=== PATIENT | male | born 1965 | race Hispanic/Latino ===

== ENCOUNTER 2017-07-15 16:35 | Inpatient (IN) | payer BC, OTHER ==
[2017-07-15 16:35] VITALS: PULSE 85; BMI 46.2
[2017-07-15] MEDS ORDERED: TDAP Vaccine 0.5 mL Syr IM ONE (17:12)
--- NOTE | 2017-07-15 17:27 | ED PDOC ---
Arrival/HPI - General Chief Complaint: Abnormal Skin Integrity Time Seen by Provider: 07/15/17 17:11 Historian: Patient - History of Present Illness Narrative History of Present Illness (Text): 07/15/17 17:28 52-year-old male with a history of diabetes and high blood pressure presents today sent in by Dr. Mcleod for ulcer to the left foot. Patient states 3 weeks ago he noticed a callus on the bottom of the foot so he decided to cut himself. Patient states since then has been unable to heal the wound on the plantar aspect of the foot. Patient states she just recently he's noticed wounds to the tip of the great toe and the left second toe. Patient denies fevers or chills. Patient states he has decreased sensation in both feet from his diabetes. Patient denies calf pain. Patient states he's noticed swelling of the left lower extremity recently. He denies dizziness or weakness. States his sugars have been 170s to 200. Patient states he has a history of high blood pressure and does not currently take any medications. Patient denies any recent trauma or injury Time/Duration: > week (3 weeks) Past Medical History - Provider Review Nursing Documentation Reviewed: Yes - Travel History Have you recently traveled outside [place] w/in the past 3 mons?: No - Infectious Disease Hx of Infectious Diseases: None - Tetanus Immunization Tetanus Immunization: Unknown - Past Medical History Past Medical History: No Previous - Cardiac Hx Cardiac Disorders: No Hx Hypertension: Yes - Pulmonary Hx Respiratory Disorders: No - Neurological Hx Neurological Disorder: No - HEENT Hx HEENT Disorder: No - Renal Hx Renal Disorder: No - Endocrine/Metabolic Hx Endocrine Disorders: No Hx Diabetes Mellitus Type 2: Yes - Hematological/Oncological Hx Blood Disorders: No - Integumentary Hx Dermatological Disorder: No - Musculoskeletal/Rheumatological Hx Musculoskeletal Disorders: No - Gastrointestinal Hx Gastrointestinal Disorders: No - Genitourinary/Gynecological Hx Genitourinary Disorders: No - Psychiatric Hx Psychophysiologic Disorder: No Hx Substance Use: No - Past Surgical History Past Surgical History: No Previous - Anesthesia Hx Anesthesia: No Hx Anesthesia Reactions: No Hx Malignant Hyperthermia: No - Suicidal Assessment Feels Threatened In Home Enviroment: No Family/Social History - Physician Review Nursing Documentation Reviewed: Yes Family/Social History: Unknown Family HX Smoking Status: Never Smoked Hx Alcohol Use: Yes Hx Substance Use: No Hx Substance Use Treatment: No Allergies/Home Meds Allergies/Adverse Reactions: Allergies No Known Allergies Allergy (Verified 04/22/16 07:14) Home Medications: Home Meds Medication Instructions Recorded Confirmed Unobtainable 07/15/17 07/15/17 Review of Systems - Review of Systems Constitutional: absent: Fatigue, Fevers Respiratory: absent: SOB, Cough Cardiovascular: absent: Chest Pain, Palpitations Gastrointestinal: absent: Abdominal Pain, Nausea, Vomiting Musculoskeletal: Arthralgias Skin: Ulcer Neurological: absent: Headache, Dizziness Psychiatric: absent: Anxiety, Depression Physical Exam Vital Signs Reviewed: Yes Vital Signs Temp Pulse Resp BP Pulse Ox 07/15/17 16:35 97.5 F L 89 18 133/87 96 Temperature: Afebrile Blood Pressure: Normal Pulse: Regular Respiratory Rate: Normal Appearance: Positive for: Well-Appearing, Non-Toxic, Comfortable Pain Distress: None Mental Status: Positive for: Alert and Oriented X 3 - Systems Exam Head: Present: Atraumatic Mouth: Present: Moist Mucous Membranes Respiratory/Chest: Present: Clear to Auscultation Cardiovascular: Present: Regular Rate and Rhythm Upper Extremity: Present: Normal Inspection Lower Extremity: Present: NORMAL PULSES, Normal ROM, Swelling, Erythema, Neurovascularly Intact, Capillary Refill < 2 s, Other (there is a dime sized ulceration to the plantar aspect of the foot with maceration and slight erythema ; + edema extending to calf. sensation and distal pulses intact. cap refill <2. ). No: CALF TENDERNESS, Tenderness, Deformity Neurological: Present: GCS=15, Speech Normal Skin: Present: Warm, Dry Psychiatric: Present: Alert, Oriented x 3 Medical Decision Making ED Course and Treatment: 07/15/17 17:31 52yr old Diabetic male with ulceration to plantar aspect of left foot x 3 weeks. cbc: wnl cmp Wnl blood cultures pending cxr; wnl left foot xray; no fx, no FB. venous duplex; left leg; no dvt tetanus updated. vancomycin zosyn ordered. 07/15/17 20:[address] mcleod; she would like patient admitted to hospitalist service. case discussed with dr. Linn; accepts admission to med/surg impression; diabetic foot ulcer admit to med/surg; dr. spears 07/15/17 20:47 - Lab Interpretations Lab Results: 07/15/17 17:15 07/15/17 17:30 Lab Results 07/15/17 17:30: PT 10.5, INR 0.97, APTT 25.9 07/15/17 17:30: Sodium 143, Potassium 4.2, Chloride 105, Carbon Dioxide 28, Anion Gap 14, BUN 21, Creatinine 0.8, Est GFR ( Amer) > 60, Est GFR (Non- Af Amer) > 60, Random Glucose 131 H, Calcium 8.7, Total Bilirubin 0.4, AST 23, ALT 31, Alkaline Phosphatase 86, Total Protein 6.9, Albumin 4.0, Globulin 2.9, Albumin/Globulin Ratio 1.4 07/15/17 17:22: POC Glucose (mg/dL) 140 H 07/15/17 17:15: WBC 9.4, RBC 4.51, Hgb 13.4 L, Hct 40.7 L, MCV 90.2, MCH 29.7, MCHC 32.9, RDW 13.2, Plt Count 231, MPV 11.9 H, Gran % 65.9, Lymph % (Auto) 25.7 , Randolph % (Auto) 7.1 H, Eos % (Auto) 1.1 L, Baso % (Auto) 0.2, Gran # 6.17, Lymph # 2.4, Randolph # 0.7 H, Eos # 0.1, Baso # 0.02 - RAD Interpretation Radiology Orders: 07/15/17 17:11 CHEST ONE VIEW [RAD] Stat FOOT LEFT 3 VIEWS ROUTINE [RAD] Stat 07/15/17 17:36 DUPLEX LOWER EXTRM VEIN LEFT [US] Stat - Medication Orders Current Medication Orders: Discontinued Medications Tetanus/Reduced Diphtheria/Acell Pertussis (Boostrix Vaccine Inj) 0.5 ml IM .ONCE ONE Stop: 07/15/17 17:13 Disposition/Present on Arrival - Present on Arrival Any Indicators Present on Arrival: Yes History of DVT/PE: No History of Uncontrolled Diabetes: Yes Urinary Catheter: No History of Decub. Ulcer: No History Surgical Site Infection Following: None - Disposition Have Diagnosis and Disposition been Completed?: Yes Diagnosis: Diabetic foot ulcer Disposition: HOSPITALIZED Disposition Time: 17:32 Patient Plan: Admission Condition: FAIR Referrals: Halina Mcleod MD [Primary Care Provider] - Follow up with primary Forms: [employer] (Uzbek)
[2017-07-15 17:51] LABS: ALB/GLOB RATIO 1.4 (1.1-1.8); ALKALINE PHOSPHATASE 86 U/L (38-126); ALT/SGPT 31 U/L (7-56); AST/SGOT 23 U/L (17-59); BILIRUBIN,TOTAL 0.4 mg/dL (0.2-1.3); BLOOD UREA NITROGEN 21 mg/dL (7-21); CALCIUM 8.7 mg/dL (8.4-10.5); CARBON DIOXIDE 28 mmol/L (21-33); CHLORIDE 105 mmol/L (98-107); GFR AFRICAN-AMERICAN > 60; GLUCOSE,RANDOM 131 mg/dL (70-110); POTASSIUM 4.2 mmol/L (3.6-5.0); SODIUM 143 mmol/L (132-148); TOTAL PROTEIN 6.9 g/dL (5.8-8.3)
[2017-07-15 17:53] LABS: BASO # 0.02 K/mm3 (0.0-2.0); BASO % 0.2 % (0.0-3.0); EOS # 0.1 (0.0-0.7); EOS % 1.1 % (1.5-5.0); GRAN # 6.17 (1.4-6.5); GRAN % 65.9 % (50.0-68.0); HEMATOCRIT 40.7 % (42.0-52.0); LYMPH # 2.4 (1.2-3.4); LYMPH % 25.7 % (22.0-35.0); MEAN CELL VOLUME 90.2 fl (80.0-105.0); MEAN CORPUSCULAR HEMOGLOBIN 29.7 pg (25.0-35.0); MEAN CORPUSCULAR HGB CONC 32.9 g/dl (31.0-37.0); MEAN PLATELET VOLUME 11.9 fl (7.0-11.0); MONO # 0.7 (0.1-0.6); MONO % 7.1 % (1.0-6.0); RED CELL DISTRIBUTION WIDTH 13.2 % (11.5-14.5); WHITE BLOOD COUNT 9.4 10^3/ul (4.5-11.0)
[2017-07-15 18:07] LABS: INR 0.97 (0.93-1.08); PARTIAL THROMBOPLASTIN TIME 25.9 Seconds (23.7-30.8)
[2017-07-15] MEDS ORDERED: Piperacillin/Tazobact 3.375 gm 100 ML IVPB STA (20:46)
[2017-07-15] MEDS ORDERED: Vancomycin 1gm in NS 250ml 1 GM/250 ML BAG IVPB STA (20:46)
--- NOTE | 2017-07-15 23:55 | CP.PCM.PN ---
Subjective - Date & Time of Evaluation Date of Evaluation: 07/15/17 Time of Evaluation: 23:54 - Subjective Subjective: As per , patient will be seen by /residents. Objective - Vital Signs/Intake and Output Vital Signs (last 24 hours): Temp Pulse Resp BP Pulse Ox 97.5 F L 78 18 141/79 98 07/15/17 16:35 07/15/17 22:23 07/15/17 22:23 07/15/17 22:23 07/15/17 22:23 - Labs Labs: PT 10.5 Seconds (9.9-11.8) 07/15/17 17:30 INR 0.97 (0.93-1.08) 07/15/17 17:30 APTT 25.9 Seconds (23.7-30.8) 07/15/17 17:30
--- NOTE | 2017-07-16 03:23 | CP.PCM.HP ---
<Charles Patel - Last Filed: 07/16/17 03:35> History of Present Illness - History of Present Illness History of Present Illness: H/P For IM - TKS DO, PGY-1 CC: Foot Ulcer HPI: 52 M w/ pertinent PMHx of DM presents with 1 month duration of ulcer on L foot. Patient states that he never felt the ulcer coming on, and when it did, he decided to cut it off. He proceeded to put lotion on it to keep it moist, and it soon became a large wound. He states that he has diminished sensation around and in the foot ulcer. He admits to minimal pain at the apex of the wound near the base of the hallux. 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; denies smoking history; former cocaine user FamHx: DM Meds: None Present on Admission - Present on Admission Any Indicators Present on Admission: No Review of Systems - Hematologic/Lymphatic Additional comments: ROS: Constitutional: pt denies fever, chills, generalized weakness ENT: pt denies dysphagia, otalgia, hearing deficit, rhinorrhea Eyes: pt denies sudden loss of vision, diplopia, blurred vision MSK: pt denies muscle stiffness, joint pain, extremity cramping Cardio: pt denies sob, heart murmur, cp Pulm: pt denies cough, hemoptysis, wheeze GI: pt denies loss of appetite, abdominal pain, constipation, melena, n/v/d : pt denies burning on urination, urinary frequency, hematuria, urinary urgency Neuro: pt denies paresis, paresthesia, dizziness, bradford, numbness, tingling Derm: + See HPI Endo: pt denies intolerance to heat/cold, diaphoresis, night sweats, polydipsia Psych: pt denies anxiety, depression, mood changes Past Patient History - Infectious Disease Hx of Infectious Diseases: None - Tetanus Immunizations Tetanus Immunization: Unknown - Past Social History Smoking Status: Never Smoked - CARDIAC Hx Congestive Heart Failure: Yes Hx Hypertension: Yes - PULMONARY Hx Respiratory Disorders: No - NEUROLOGICAL Hx Neurological Disorder: No - HEENT Hx HEENT Problems: No - RENAL Hx Chronic Kidney Disease: No - ENDOCRINE/METABOLIC Hx Diabetes Mellitus Type 2: Yes - HEMATOLOGICAL/ONCOLOGICAL Hx Blood Disorders: No - INTEGUMENTARY Hx Dermatological Problems: No - MUSCULOSKELETAL/RHEUMATOLOGICAL Hx Falls: No - GASTROINTESTINAL Hx Gastrointestinal Disorders: No - GENITOURINARY/GYNECOLOGICAL Hx Genitourinary Disorders: No - PSYCHIATRIC Hx Substance Use: No - SURGICAL HISTORY Hx Surgeries: No - ANESTHESIA Hx Anesthesia: No Hx Anesthesia Reactions: No Hx Malignant Hyperthermia: No Meds Allergies/Adverse Reactions: Allergies Allergy/AdvReac Type Severity Reaction Status Date / Time No Known Allergies Allergy Verified 04/22/16 07:14 Physical Exam - Additional Findings Additional findings: Phys Exam: VS as below Constitutional: a&o x 4, nad Head and Neck: neck supple, no jvd, trachea midline, carotid midline, no cervical/head mass Eyes: mariluz, nonicteric sclera, eom intact ENT: auditory acuity grossly intact, throat not congested, no nasal deformity Cardio: rrr, no m/r/g, no carotid bruit, nml s1, s2 Pulm: no accessory muscle use, equal nml breath sounds bilaterally, ctab Abd: s/nt/nd, nbs x 4 q, no palpable masses Derm: no rashes, no ulcers, no lesions Extr: +L foot has a deep, non pustulating ulcer; +Mild TTP at apex of wound, near base of hallux Neuro: cn II-XII grossly intact, ue and le 5/5 muscle strength bilaterally, no los ue, le bilaterally and core Results - Vital Signs Recent Vital Signs: Last Vital Signs Temp 98.2 F 07/15/17 23:52 Pulse 78 07/15/17 23:52 Resp 18 07/15/17 23:52 BP 154/90 H 07/15/17 23:52 Pulse Ox 98 07/15/17 22:23 - Labs Result Diagrams: 07/15/17 17:15 07/15/17 17:30 Assessment & Plan - Assessment and Plan (Free Text) Assessment: A/P 52 M with foot ulcer Foot Ulcer - Patient afebrile - W/Cx, Bl/Cx - AM labs - Wound care - ESR, CRP - Vanc/Zosyn - CONSIDER OBTAINING XRAY of LEFT HALLUX TO SEE BONE PENETRATION - CONSIDER PODIATRY C/S Diabetes - A1C - Low dose RISS Nonischemic cardiomyopathy - No acute intervention Hx/O CHF - No acute intervention - Pt is not on lasix, consider starting Medication non-compliance - Advise patient on importance of glycemic control and CHF control PPX - Heparin/Protonix <Josafat Orlando MD - Last Filed: 07/17/17 13:17> Results - Vital Signs Recent Vital Signs: Last Vital Signs Temp 98.0 F 07/17/17 06:00 Pulse 75 07/17/17 06:00 Resp 18 07/17/17 06:00 BP 154/90 H 07/17/17 06:00 Pulse Ox 95 07/17/17 06:00 - Labs Result Diagrams: 07/17/17 06:30 07/17/17 06:30 Labs: Laboratory Results - last 24 hr 07/16/17 07/16/17 07/17/17 16:33 22:06 06:30 WBC 10.1 RBC 4.45 Hgb 13.2 L Hct 40.2 L MCV 90.3 MCH 29.7 MCHC 32.8 RDW 13.2 Plt Count 217 MPV 11.8 H Gran % 71.5 H Lymph % (Auto) 21.2 L Rabun % (Auto) 5.5 Eos % (Auto) 1.5 Baso % (Auto) 0.3 Gran # 7.19 H Lymph # 2.1 Rabun # 0.6 Eos # 0.2 Baso # 0.03 Sodium Potassium Chloride Carbon Dioxide Anion Gap BUN Creatinine Est GFR ( Amer) Est GFR (Non-Af Amer) POC Glucose (mg/dL) 113 H 148 H Random Glucose Calcium Phosphorus Magnesium Total Bilirubin AST ALT Alkaline Phosphatase Total Protein Albumin Globulin Albumin/Globulin Ratio 07/17/17 07/17/17 07/17/17 06:30 07:15 11:43 WBC RBC Hgb Hct MCV MCH MCHC RDW Plt Count MPV Gran % Lymph % (Auto) Rabun % (Auto) Eos % (Auto) Baso % (Auto) Gran # Lymph # Rabun # Eos # Baso # Sodium 139 Potassium 4.2 Chloride 102 Carbon Dioxide 29 Anion Gap 12 BUN 14 Creatinine 0.7 Est GFR ( Amer) > 60 Est GFR (Non-Af Amer) > 60 POC Glucose (mg/dL) 120 H 200 H Random Glucose 126 H Calcium 8.8 Phosphorus 3.4 Magnesium 1.9 Total Bilirubin 0.8 AST 30 ALT 28 Alkaline Phosphatase 89 Total Protein 6.6 Albumin 3.7 Globulin 2.9 Albumin/Globulin Ratio 1.3 Attending/Attestation - Attestation I have personally seen and examined this patient.: Yes I have fully participated in the care of the patient.: Yes I have reviewed all pertinent clinical information: Yes Notes (Text): -I agree with the above H&P completed by the resident physician with the following additions and/or changes: The patient is a 52 year old man with a history of non-ischemic cardiomyopathy and IDDM, who is being admitted for foot cellulitis with infected diabetic foot ulcer (r/o OM). Wound care consult has been placed. Empiric IV Vanco/Zosyn will be started. ESR and CRP have been ordered. Will defer to day team order MRI to help r/o OM (if official read of X-ray is negative). Insulin sliding scale for tight glucose control.
[2017-07-16] MEDS: Pantoprazole 40 mg EC Tab PO SCH (05:17)
[2017-07-16] MEDS: Piperacillin/Tazobact 3.375 gm 100 ML IVPB SCH ×3 (05:17→17:39)
[2017-07-16 06:32] LABS: BASO # 0.03 K/mm3 (0.0-2.0); BASO % 0.3 % (0.0-3.0); EOS # 0.2 (0.0-0.7); EOS % 1.7 % (1.5-5.0); GRAN # 6.37 (1.4-6.5); GRAN % 63.8 % (50.0-68.0); HEMATOCRIT 39.8 % (42.0-52.0); LYMPH # 2.8 (1.2-3.4); LYMPH % 28.5 % (22.0-35.0); MEAN CELL VOLUME 91.1 fl (80.0-105.0); MEAN CORPUSCULAR HEMOGLOBIN 29.5 pg (25.0-35.0); MEAN CORPUSCULAR HGB CONC 32.4 g/dl (31.0-37.0); MEAN PLATELET VOLUME 12.1 fl (7.0-11.0); MONO # 0.6 (0.1-0.6); MONO % 5.7 % (1.0-6.0); RED CELL DISTRIBUTION WIDTH 13.3 % (11.5-14.5)
[2017-07-16 07:12] LABS: ALB/GLOB RATIO 1.3 (1.1-1.8); ALKALINE PHOSPHATASE 85 U/L (38-126); ALT/SGPT 25 U/L (7-56); AST/SGOT 19 U/L (17-59); BILIRUBIN,TOTAL 0.5 mg/dL (0.2-1.3); BLOOD UREA NITROGEN 18 mg/dL (7-21); CALCIUM 8.5 mg/dL (8.4-10.5); CARBON DIOXIDE 29 mmol/L (21-33); CHLORIDE 103 mmol/L (98-107); GFR AFRICAN-AMERICAN > 60; GLUCOSE,RANDOM 115 mg/dL (70-110); MAGNESIUM 2.1 mg/dL (1.7-2.2); POTASSIUM 3.9 mmol/L (3.6-5.0); SODIUM 140 mmol/L (132-148); TOTAL PROTEIN 6.4 g/dL (5.8-8.3)
--- NOTE | 2017-07-16 07:43 | RAD ---
PROCEDURE: Left Foot Radiographs. HISTORY: foot ulcer/ x 3 weeks COMPARISON: None. FINDINGS: BONES: A moderate hallux valgus deformity is appreciate the left foot with no suspicious lytic or blastic change, fracture or dislocation related. Degenerate change seen throughout the interphalangeal joints as well as moderately at the 1st metatarsophalangeal joint. Irregular density at the soft tissues of the wall of the great toe may reflect ulceration. No periosteal reaction or bone lysis is identified. No blastic bony changes either. JOINTS: As above. SOFT TISSUES: As above. OTHER FINDINGS: None. IMPRESSION: No overt radiographic findings suggest osteomyelitis however MRI is more sensitive and can be performed for follow-up as clinically warranted. Regular soft tissue changes at the ball of the great toe are seen section of reflecting an ulcer. Degenerative joint disease throughout the interphalangeal joints diffusely
--- NOTE | 2017-07-16 07:44 | RAD ---
PROCEDURE: CHEST RADIOGRAPH, 1 VIEW HISTORY: foot ulcer/admission cxr COMPARISON: Portable chest 04/22/2016. FINDINGS: LUNGS: Clear. PLEURA: No pneumothorax or pleural fluid seen. CARDIOVASCULAR: Mildly prominent cardiac silhouette is appreciate without pulmonary vascular derangement appreciated. OSSEOUS STRUCTURES: Dextroscoliotic thoracic spinal deformity is again appreciated. VISUALIZED UPPER ABDOMEN: Normal. OTHER FINDINGS: None. IMPRESSION: No acute cardiopulmonary disease appreciated in the interval. Stable mildly prominent cardiac silhouette again evident.
--- NOTE | 2017-07-16 09:09 | CARD ---
APPROVED REPORT EKG Measurement Heart [id number] HI [id number] [id number] <Conclusion> Normal sinus rhythm Possible Left atrial enlargement Prolonged QT Improved repolarization c/w ECG 04/23/16
[2017-07-16] MEDS: Insulin Reg-LOW-Coverage SC SCH ×4 (10:22→22:38)
[2017-07-16] MEDS: Vancomycin 1gm in NS 250ml 1 GM/250 ML BAG IVPB SCH ×2 (10:26→22:38)
--- NOTE | 2017-07-16 13:33 | CP.PCM.CON ---
History of Present Illness - History of Present Illness History of Present Illness: Podiatry Consult Note - Dr. Hensley 52 year old male patient PMHx DM seen at bedside concerning left foot ulceration. Patient seen resting comfortably, AAOx3 and NAD. Patient states he has had this ulceration to the ball of his foot for the past 2 months. Patient reports the ulceration was initially a callus and was told by his mother to try and remove it himself, resulting in the open wound. Patient also complains of developing wounds on the tip of his 1st and 2nd toes on his left foot. Patient denies any pain to his left foot today. Patient states he only experiences pain when ambulating for long periods of time. 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 Patient admits to numbness, burning, and tingling to bilateral LE. Patient denies N/V/F/D/C, admits to SOB overnight but not currently. No other pedal complaints at this time. Past Patient History - Infectious Disease Hx of Infectious Diseases: None - Tetanus Immunizations Tetanus Immunization: Unknown - Past Social History Smoking Status: Never Smoked - CARDIAC Hx Congestive Heart Failure: Yes Hx Hypertension: Yes - PULMONARY Hx Respiratory Disorders: No - NEUROLOGICAL Hx Neurological Disorder: No - HEENT Hx HEENT Problems: No - RENAL Hx Chronic Kidney Disease: No - ENDOCRINE/METABOLIC Hx Diabetes Mellitus Type 2: Yes - HEMATOLOGICAL/ONCOLOGICAL Hx Blood Disorders: No - INTEGUMENTARY Hx Dermatological Problems: No - MUSCULOSKELETAL/RHEUMATOLOGICAL Hx Falls: No - GASTROINTESTINAL Hx Gastrointestinal Disorders: No - GENITOURINARY/GYNECOLOGICAL Hx Genitourinary Disorders: No - PSYCHIATRIC Hx Substance Use: No - SURGICAL HISTORY Hx Surgeries: No - ANESTHESIA Hx Anesthesia: No Hx Anesthesia Reactions: No Hx Malignant Hyperthermia: No Meds Allergies/Adverse Reactions: Allergies Allergy/AdvReac Type Severity Reaction Status Date / Time No Known Allergies Allergy Verified 04/22/16 07:14 - Medications Medications: Current Medications Heparin Sodium (Porcine) (Heparin) 5,000 units SC Q8 LAY PRN Reason: Protocol Last Admin: 07/16/17 05:17 Dose: 5,000 units Vancomycin HCl (Vancomycin 1gm) 1 gm in 250 mls @ 167 mls/hr IVPB Q12 LAY PRN Reason: Protocol Last Admin: 07/16/17 10:26 Dose: 167 mls/hr Piperacillin Sod/Tazobactam Sod (Zosyn 3.375 In Ns 100ml) 100 mls @ 200 mls/hr IVPB Q6 LAY PRN Reason: Protocol Stop: 07/23/17 06:01 Last Admin: 07/16/17 11:56 Dose: 200 mls/hr Insulin Human Regular (Humulin R Low) 0 units SC ACHS LAY PRN Reason: Protocol Last Admin: 07/16/17 11:55 Dose: 1 units Pantoprazole Sodium (Protonix Ec Tab) 40 mg PO 0600 LAY Last Admin: 07/16/17 05:17 Dose: 40 mg Physical Exam - Constitutional Appears: Well, Non-toxic, No Acute Distress - Extremities Exam Additional comments: VASC: DP and PT pulses palpable 2/4 b/l. CFT <3 seconds to all digits x10. TG warm to warm. Nonpitting edema noted to bilateral LE. No increase in warmth noted to left sub met head 1 ulceration. NEURO: Gross sensation decreased b/l. DERM: Ulceration measuring approximately 1.5 x 2.5 x 0.2 cm noted to plantar aspect of left 1st metatarsal head - ulcer is noted to have a 100% granular base with a hyperkeratotic rim, undermining noted from 3 o'clock to 6 o'clock, no tunneling noted, no purulence, no drainage, no fluctuance, minimal malodor. Pre-ulcerative lesions noted to left 1st and 2nd distal silvia, no fluctuance noted. ORTHO: No pain on palpation noted. - Neurological Exam Neurological exam: Alert, Oriented x3 - Psychiatric Exam Psychiatric exam: Normal Affect, Normal Mood Results - Vital Signs Recent Vital Signs: Last Vital Signs Temp 97.6 F 07/16/17 08:56 Pulse 71 07/16/17 08:56 Resp 20 07/16/17 08:56 BP 149/80 07/16/17 08:56 Pulse Ox 99 07/16/17 08:56 - Labs Result Diagrams: 07/16/17 06:10 07/16/17 06:10 Labs: Laboratory Results - last 24 hr 07/16/17 07/16/17 07/16/17 01:30 01:30 06:10 WBC 10.0 RBC 4.37 Hgb 12.9 L Hct 39.8 L MCV 91.1 MCH 29.5 MCHC 32.4 RDW 13.3 Plt Count 212 MPV 12.1 H Gran % 63.8 Lymph % (Auto) 28.5 Sullivan % (Auto) 5.7 Eos % (Auto) 1.7 Baso % (Auto) 0.3 Gran # 6.37 Lymph # 2.8 Sullivan # 0.6 Eos # 0.2 Baso # 0.03 ESR 22 H Sodium Potassium Chloride Carbon Dioxide Anion Gap BUN Creatinine Est GFR ( Amer) Est GFR (Non-Af Amer) POC Glucose (mg/dL) Random Glucose Hemoglobin A1c Calcium Phosphorus Magnesium Total Bilirubin AST ALT Alkaline Phosphatase C-React Prot High Sens 5.78 H Total Protein Albumin Globulin Albumin/Globulin Ratio 07/16/17 07/16/17 07/16/17 06:10 06:10 07:21 WBC RBC Hgb Hct MCV MCH MCHC RDW Plt Count MPV Gran % Lymph % (Auto) Sullivan % (Auto) Eos % (Auto) Baso % (Auto) Gran # Lymph # Sullivan # Eos # Baso # ESR Sodium 140 Potassium 3.9 Chloride 103 Carbon Dioxide 29 Anion Gap 12 BUN 18 Creatinine 0.7 Est GFR ( Amer) > 60 Est GFR (Non-Af Amer) > 60 POC Glucose (mg/dL) 133 H Random Glucose 115 H Hemoglobin A1c 6.6 H D Calcium 8.5 Phosphorus 3.0 Magnesium 2.1 Total Bilirubin 0.5 AST 19 ALT 25 Alkaline Phosphatase 85 C-React Prot High Sens Total Protein 6.4 Albumin 3.5 Globulin 2.8 Albumin/Globulin Ratio 1.3 07/16/17 11:12 WBC RBC Hgb Hct MCV MCH MCHC RDW Plt Count MPV Gran % Lymph % (Auto) Sullivan % (Auto) Eos % (Auto) Baso % (Auto) Gran # Lymph # Sullivan # Eos # Baso # ESR Sodium Potassium Chloride Carbon Dioxide Anion Gap BUN Creatinine Est GFR ( Amer) Est GFR (Non-Af Amer) POC Glucose (mg/dL) 167 H Random Glucose Hemoglobin A1c Calcium Phosphorus Magnesium Total Bilirubin AST ALT Alkaline Phosphatase C-React Prot High Sens Total Protein Albumin Globulin Albumin/Globulin Ratio Assessment & Plan - Assessment and Plan (Free Text) Assessment: 52 year old DM male with left sub met head 1 ulceration 2/2 diabetic neuropathy Plan: Patient seen and evaluated at bedside with attending, Dr. Hensley Chart, vitals, labs reviewed =afebrile, WBC 10.0, ESR 22, A1c 6.6 Hyperkeratotic tissue excisionally debrided to healthy skin w/o incident Optifoam applied to plantar ulceration Bactroban ordered - QD bactroban + optifoam dressing changes Physical therapy consulted - evaluate/gait training for darco forefoot offloading wedge shoe, left foot MRI ordered F/U wound cx Continue abx per medicine Podiatry will continue to follow patient while in house
--- NOTE | 2017-07-16 13:50 | CP.PCM.CON ---
History of Present Illness - History of Present Illness History of Present Illness: 52 year old male with PMH of DM, morbid obesity with BMI 41, chronic CHF due to non-ischemic cardiomyopathy came in to [facility] because of worsening ulceration on the ball of his left foot, which started about a months ago. He apparently had a callous there which he opened up. He put lotion over the wound to keep it moist, but instead of healing, it continued to get bigger. He occasionally had some discharge from the area. He denies walking barefoot on soil, no animal contacts, no soaking of his feet in water. He denies fever or chills, no nausea or vomiting, no chest pain, no SOB, no cough or colds, no abdominal pain, no diarrhea, no dysuria. Infectious Diseases consult is requested to further evaluate and manage. Review of Systems - Review of Systems All systems: reviewed and no additional remarkable complaints except (as per HPI ) Past Patient History - Infectious Disease Hx of Infectious Diseases: None - Tetanus Immunizations Tetanus Immunization: Unknown - Past Social History Smoking Status: Never Smoked - CARDIAC Hx Congestive Heart Failure: Yes Hx Hypertension: Yes - PULMONARY Hx Respiratory Disorders: No - NEUROLOGICAL Hx Neurological Disorder: No - HEENT Hx HEENT Problems: No - RENAL Hx Chronic Kidney Disease: No - ENDOCRINE/METABOLIC Hx Diabetes Mellitus Type 2: Yes - HEMATOLOGICAL/ONCOLOGICAL Hx Blood Disorders: No - INTEGUMENTARY Hx Dermatological Problems: No - MUSCULOSKELETAL/RHEUMATOLOGICAL Hx Falls: No - GASTROINTESTINAL Hx Gastrointestinal Disorders: No - GENITOURINARY/GYNECOLOGICAL Hx Genitourinary Disorders: No - PSYCHIATRIC Hx Substance Use: No - SURGICAL HISTORY Hx Surgeries: No - ANESTHESIA Hx Anesthesia: No Hx Anesthesia Reactions: No Hx Malignant Hyperthermia: No Meds Allergies/Adverse Reactions: Allergies Allergy/AdvReac Type Severity Reaction Status Date / Time No Known Allergies Allergy Verified 04/22/16 07:14 - Medications Medications: Current Medications Heparin Sodium (Porcine) (Heparin) 5,000 units SC Q8 LAY PRN Reason: Protocol Last Admin: 07/16/17 05:17 Dose: 5,000 units Vancomycin HCl (Vancomycin 1gm) 1 gm in 250 mls @ 167 mls/hr IVPB Q12 LAY PRN Reason: Protocol Piperacillin Sod/Tazobactam Sod (Zosyn 3.375 In Ns 100ml) 100 mls @ 200 mls/hr IVPB Q6 LAY PRN Reason: Protocol Stop: 07/23/17 06:01 Last Admin: 07/16/17 05:17 Dose: 200 mls/hr Insulin Human Regular (Humulin R Low) 0 units SC ACHS [facility] PRN Reason: Protocol Pantoprazole Sodium (Protonix Ec Tab) 40 mg PO 0600 [facility] Last Admin: 07/16/17 05:17 Dose: 40 mg Physical Exam - Constitutional Appears: Non-toxic, No Acute Distress - Head Exam Head Exam: NORMAL INSPECTION - ENT Exam ENT Exam: Mucous Membranes Moist - Neck Exam Neck exam: Negative for: Lymphadenopathy, Meningismus - Respiratory Exam Respiratory Exam: Decreased Breath Sounds - Cardiovascular Exam Cardiovascular Exam: +S1, +S2 - GI/Abdominal Exam GI & Abdominal Exam: Soft. absent: Tenderness - Extremities Exam Additional comments: left foot - on the plantar surface on the ball of the foot below the 1st digit, there is an open ulcer with some serosanguinous material, no pus noted Results - Vital Signs Recent Vital Signs: Last Vital Signs Temp 97.6 F 07/16/17 08:56 Pulse 71 07/16/17 08:56 Resp 20 07/16/17 08:56 BP 149/80 07/16/17 08:56 Pulse Ox 99 07/16/17 08:56 - Labs Result Diagrams: 07/16/17 06:10 07/16/17 06:10 Labs: Laboratory Results - last 24 hr 07/16/17 07/16/17 07/16/17 01:30 06:10 06:10 WBC 10.0 RBC 4.37 Hgb 12.9 L Hct 39.8 L MCV 91.1 MCH 29.5 MCHC 32.4 RDW 13.3 Plt Count 212 MPV 12.1 H Gran % 63.8 Lymph % (Auto) 28.5 [place] % (Auto) 5.7 Eos % (Auto) 1.7 Baso % (Auto) 0.3 Gran # 6.37 Lymph # 2.8 [place] # 0.6 Eos # 0.2 Baso # 0.03 ESR 22 H Sodium 140 Potassium 3.9 Chloride 103 Carbon Dioxide 29 Anion Gap 12 BUN 18 Creatinine 0.7 Est GFR ( Amer) > 60 Est GFR (Non-Af Amer) > 60 POC Glucose (mg/dL) Random Glucose 115 H Calcium 8.5 Phosphorus 3.0 Magnesium 2.1 Total Bilirubin 0.5 AST 19 ALT 25 Alkaline Phosphatase 85 Total Protein 6.4 Albumin 3.5 Globulin 2.8 Albumin/Globulin Ratio 1.3 07/16/17 07:21 WBC RBC Hgb Hct MCV MCH MCHC RDW Plt Count MPV Gran % Lymph % (Auto) [place] % (Auto) Eos % (Auto) Baso % (Auto) Gran # Lymph # [place] # Eos # Baso # ESR Sodium Potassium Chloride Carbon Dioxide Anion Gap BUN Creatinine Est GFR ( Amer) Est GFR (Non-Af Amer) POC Glucose (mg/dL) 133 H Random Glucose Calcium Phosphorus Magnesium Total Bilirubin AST ALT Alkaline Phosphatase Total Protein Albumin Globulin Albumin/Globulin Ratio Assessment & Plan - Assessment and Plan (Free Text) Plan: Assessment Left foot plantar infected diabetic foot ulcer, R/O osteomyelitis DM morbid obesity with BMI 41 chronic CHF due to non-ischemic cardiomyopathy Plan Started the patient on Vancomycin and Zosyn pending blood and wound cx; follow up AZIZA's, ESR, CRP awaiting Podiatry evaluation to see if we may need MRI will monitor clinically
--- NOTE | 2017-07-16 15:05 | US ---
PROCEDURE: Left lower extremity venous US HISTORY: Leg pain and swelling. Evaluate for DVT. PHYSICIAN(S): Ky Zendejas MD. TECHNIQUE: Duplex sonography and color-flow Doppler with graded compression were used to evaluate the deep venous system of the left lower extremity. FINDINGS: The visualized deep venous system of the left lower extremity is sonographically normal and compressible. Normal wave forms and augmentation are seen. There is no sonographic evidence for deep venous thrombosis in the visualized segments of the left lower extremity. IMPRESSION: 1. No sonographic evidence for deep venous thrombosis in the visualized segments of the left lower extremity.
[2017-07-16 17:37] VITALS: RESP 18
--- NOTE | 2017-07-16 18:40 | US ---
PROCEDURE: Lower extremity AZIZA exam HISTORY: Peripheral vascular disease with pain and ulceration. Diabetes. PHYSICIAN(S): Ky Zendejas MD. FINDINGS: The resting AZIZA's are normal: right, 1.29and left, 1.31. The brachial systolic pressures are symmetric. The high thigh pressures are noncompressible. The high thigh PVR waveforms are normal and symmetric. The calf PVR waveforms augment normally. The ankle and metatarsal waveforms are relatively normal and symmetric. No significant pressure gradients are noted across the lower legs. IMPRESSION: 1. Normal AZIZA and PVR examination at rest.
[2017-07-16] MEDS ORDERED: Gadodiamide 287 MG/ML VIAL (15ML) IV ONE (19:35)
--- NOTE | 2017-07-16 22:26 | MRI ---
EXAM: MR Left Lower Extremity Without and With Intravenous Contrast, Foot EXAM DATE/TIME: 07/16/2017 1:51 PM CLINICAL HISTORY: The patient age is 52 years old and is male; Pain and signs and symptoms; Cellulitis; Foot; Left; Additional info: Sub met 1 ulceration Facility exam id and description: Mri footwwolt foot w/ w/o contrast left TECHNIQUE: Multiplanar magnetic resonance images of the left foot without and with intravenous contrast. CONTRAST: 15 mL of optimark administered intravenously. COMPARISON: DX - FOOT LEFT 3 VIEWS ROUTINE 07/15/2017 6:08:26 PM FINDINGS: LIGAMENTS: Medial collateral: No visible acute tear. Lateral collateral: No visible acute tear. Lisfranc: No visualized acute tear. TENDONS: Flexor: No visualized acute tear. Extensor: No visualized acute tear. Muscles: No acute abnormality. Fluid: An ulceration is identified plantar to the level of first metatarsal head. Deep to this ulceration, there is a small collection of fluid measuring 1.8 x 0.3 x 0.9 cm. This is consistent with abscess. Adventitial bursitis is within the differential. There is a moderate first MTP joint effusion. Small effusions are identified at the second through fourth MTP joints. Plantar fascia: Incompletely visualized. No acute tear of the visualized plantar fascia. Bones/joints: There is no visualized acute marrow edema to suggest osteomyelitis. Cystic change is identified within the navicular bone. This is likely secondary to arthropathy or neuropathic changes. No dislocation. There is mild valgus deviation of the great toe. Mild degenerative spurring is identified of the first metatarsal head. Soft tissues: There is soft tissue swelling of the foot, consistent with cellulitis in the appropriate clinical setting. Other findings: This study concentrates on the mid to forefoot. IMPRESSION: 1. There is soft tissue swelling of the foot, consistent with cellulitis in the appropriate clinical setting. 2. An ulceration is identified plantar to the level of first metatarsal head. Deep to this ulceration, there is a small collection of fluid measuring 1.8 x 0.3 x 0.9 cm. This is consistent with abscess. Adventitial bursitis is within the differential. 3. There is a moderate first MTP joint effusion. Small effusions are identified at the second through fourth MTP joints. 4. There is no visualized acute marrow edema to suggest osteomyelitis. 5. Cystic change is identified within the navicular bone. This is likely secondary to arthropathy or neuropathic changes. 6. Additional findings described above.
[2017-07-17] MEDS: Piperacillin/Tazobact 3.375 gm 100 ML IVPB SCH ×3 (01:20→11:56)
[2017-07-17] MEDS: Pantoprazole 40 mg EC Tab PO SCH (06:28)
[2017-07-17 07:18] LABS: BASO # 0.03 K/mm3 (0.0-2.0); BASO % 0.3 % (0.0-3.0); EOS # 0.2 (0.0-0.7); EOS % 1.5 % (1.5-5.0); GRAN # 7.19 (1.4-6.5); GRAN % 71.5 % (50.0-68.0); HEMATOCRIT 40.2 % (42.0-52.0); LYMPH # 2.1 (1.2-3.4); LYMPH % 21.2 % (22.0-35.0); MEAN CELL VOLUME 90.3 fl (80.0-105.0); MEAN CORPUSCULAR HEMOGLOBIN 29.7 pg (25.0-35.0); MEAN CORPUSCULAR HGB CONC 32.8 g/dl (31.0-37.0); MEAN PLATELET VOLUME 11.8 fl (7.0-11.0); MONO # 0.6 (0.1-0.6); MONO % 5.5 % (1.0-6.0); RED CELL DISTRIBUTION WIDTH 13.2 % (11.5-14.5); WHITE BLOOD COUNT 10.1 10^3/ul (4.5-11.0)
[2017-07-17 07:50] VITALS: BP 154/90; PULSE 75; TEMP 98; O2SAT 95
[2017-07-17 07:51] LABS: ALB/GLOB RATIO 1.3 (1.1-1.8); ALKALINE PHOSPHATASE 89 U/L (38-126); ALT/SGPT 28 U/L (7-56); AST/SGOT 30 U/L (17-59); BILIRUBIN,TOTAL 0.8 mg/dL (0.2-1.3); BLOOD UREA NITROGEN 14 mg/dL (7-21); CALCIUM 8.8 mg/dL (8.4-10.5); CARBON DIOXIDE 29 mmol/L (21-33); CHLORIDE 102 mmol/L (98-107); GFR AFRICAN-AMERICAN > 60; GLUCOSE,RANDOM 126 mg/dL (70-110); MAGNESIUM 1.9 mg/dL (1.7-2.2); PHOSPHOROUS 3.4 mg/dL (2.5-4.5); POTASSIUM 4.2 mmol/L (3.6-5.0); SODIUM 139 mmol/L (132-148); TOTAL PROTEIN 6.6 g/dL (5.8-8.3)
[2017-07-17] MEDS: Insulin Reg-LOW-Coverage SC SCH ×2 (08:26→11:54)
[2017-07-17] MEDS: Vancomycin 1gm in NS 250ml 1 GM/250 ML BAG IVPB SCH (09:07)
--- NOTE | 2017-07-17 10:38 | CP.PCM.PN ---
Subjective - Date & Time of Evaluation Date of Evaluation: 07/17/17 Time of Evaluation: 09:35 - Subjective Subjective: Less pain in the left foot, no fevers, not in distress. Objective - Vital Signs/Intake and Output Vital Signs (last 24 hours): Temp Pulse Resp BP Pulse Ox 97.9 F 69 18 156/96 H 96 07/16/17 17:36 07/16/17 17:36 07/16/17 17:36 07/16/17 17:36 07/16/17 17:36 Intake and Output: 07/16/17 07/17/17 18:59 06:59 Intake Total 1000 Output Total 0 Balance 1000 - Medications Medications: Current Medications Heparin Sodium (Porcine) (Heparin) 5,000 units SC Q8 LAY PRN Reason: Protocol Last Admin: 07/17/17 06:29 Dose: 5,000 units Vancomycin HCl (Vancomycin 1gm) 1 gm in 250 mls @ 167 mls/hr IVPB Q12 LAY PRN Reason: Protocol Last Admin: 07/16/17 22:38 Dose: 167 mls/hr Piperacillin Sod/Tazobactam Sod (Zosyn 3.375 In Ns 100ml) 100 mls @ 200 mls/hr IVPB Q6 LAY PRN Reason: Protocol Stop: 07/23/17 06:01 Last Admin: 07/17/17 06:29 Dose: 200 mls/hr Insulin Human Regular (Humulin R Low) 0 units SC ACHS LAY PRN Reason: Protocol Last Admin: 07/16/17 22:38 Dose: Not Given Mupirocin (Bactroban Ointment) 0 gm TOP BID [facility] Pantoprazole Sodium (Protonix Ec Tab) 40 mg PO 0600 [facility] Last Admin: 07/17/17 06:28 Dose: 40 mg - Labs Labs: 07/16/17 06:10 07/16/17 06:10 PT 10.5 Seconds (9.9-11.8) 07/15/17 17:30 INR 0.97 (0.93-1.08) 07/15/17 17:30 APTT 25.9 Seconds (23.7-30.8) 07/15/17 17:30 - Constitutional Appears: Non-toxic, No Acute Distress - Head Exam Head Exam: NORMAL INSPECTION - ENT Exam ENT Exam: Mucous Membranes Moist - Neck Exam Neck Exam: absent: Meningismus - Respiratory Exam Respiratory Exam: Decreased Breath Sounds - Cardiovascular Exam Cardiovascular Exam: +S1, +S2 - GI/Abdominal Exam GI & Abdominal Exam: Soft. absent: Tenderness - Extremities Exam Additional comments: left foot with dressings in place Assessment and Plan - Assessment and Plan (Free Text) Plan: Assessment Left foot plantar infected diabetic foot ulcer, with no evidence of osteomyelitis on MRI DM morbid obesity with BMI 41 chronic CHF due to non-ischemic cardiomyopathy Plan continue Vancomycin and Zosyn day 2; pending blood and wound cx; AZIZA's are normal; ESR, CRP are elevated follow up further Podiatry plans will continue to monitor clinically
--- NOTE | 2017-07-17 13:16 | CP.PCM.DIS ---
Provider - Provider Date of Admission: 07/15/17 20:48 Attending physician: Edgar Garcia MD Primary care physician: Halina Mcleod MD Time Spent in preparation of Discharge (in minutes): 30 Hospital Course - Lab Results Lab Results: Micro Results 07/15/17 23:52 Foot - Left Gram Stain - Final 07/15/17 23:52 Foot - Left Wound Culture - Preliminary Coagulase Neg Staphylococcus Most Recent Lab Values WBC 10.1 10^3/ul (4.5-11.0) 07/17/17 06:30 RBC 4.45 10^6/uL (3.5-6.1) 07/17/17 06:30 Hgb 13.2 g/dL (14.0-18.0) L 07/17/17 06:30 Hct 40.2 % (42.0-52.0) L 07/17/17 06:30 MCV 90.3 fl (80.0-105.0) 07/17/17 06:30 MCH 29.7 pg (25.0-35.0) 07/17/17 06:30 MCHC 32.8 g/dl (31.0-37.0) 07/17/17 06:30 RDW 13.2 % (11.5-14.5) 07/17/17 06:30 Plt Count 217 10^3/uL (120.0-450.0) 07/17/17 06:30 MPV 11.8 fl (7.0-11.0) H 07/17/17 06:30 Gran % 71.5 % (50.0-68.0) H 07/17/17 06:30 Lymph % (Auto) 21.2 % (22.0-35.0) L 07/17/17 06:30 [place] % (Auto) 5.5 % (1.0-6.0) 07/17/17 06:30 Eos % (Auto) 1.5 % (1.5-5.0) 07/17/17 06:30 Baso % (Auto) 0.3 % (0.0-3.0) 07/17/17 06:30 Gran # 7.19 (1.4-6.5) H 07/17/17 06:30 Lymph # 2.1 (1.2-3.4) 07/17/17 06:30 [place] # 0.6 (0.1-0.6) 07/17/17 06:30 Eos # 0.2 (0.0-0.7) 07/17/17 06:30 Baso # 0.03 K/mm3 (0.0-2.0) 07/17/17 06:30 ESR 22 mm/hr (0.00-15.0) H 07/16/17 01:30 PT 10.5 Seconds (9.9-11.8) 07/15/17 17:30 INR 0.97 (0.93-1.08) 07/15/17 17:30 APTT 25.9 Seconds (23.7-30.8) 07/15/17 17:30 Sodium 139 mmol/L (132-148) 07/17/17 06:30 Potassium 4.2 mmol/L (3.6-5.0) 07/17/17 06:30 Chloride 102 mmol/L (98-107) 07/17/17 06:30 Carbon Dioxide 29 mmol/L (21-33) 07/17/17 06:30 Anion Gap 12 (10-20) 07/17/17 06:30 BUN 14 mg/dL (7-21) 07/17/17 06:30 Creatinine 0.7 mg/dL (0.5-1.4) 07/17/17 06:30 Est GFR ( Amer) > 60 07/17/17 06:30 Est GFR (Non-Af Amer) > 60 07/17/17 06:30 POC Glucose (mg/dL) 200 mg/dL (65-110) H 07/17/17 11:43 Random Glucose 126 mg/dL (70-110) H 07/17/17 06:30 Hemoglobin A1c 6.6 % (4.2-6.5) H D 07/16/17 06:10 Calcium 8.8 mg/dL (8.4-10.5) 07/17/17 06:30 Phosphorus 3.4 mg/dL (2.5-4.5) 07/17/17 06:30 Magnesium 1.9 mg/dL (1.7-2.2) 07/17/17 06:30 Total Bilirubin 0.8 mg/dL (0.2-1.3) 07/17/17 06:30 AST 30 U/L (17-59) 07/17/17 06:30 ALT 28 U/L (7-56) 07/17/17 06:30 Alkaline Phosphatase 89 U/L (38-126) 07/17/17 06:30 C-React Prot High Sens 5.78 mg/L (1.00-3.00) H 07/16/17 01:30 Total Protein 6.6 g/dL (5.8-8.3) 07/17/17 06:30 Albumin 3.7 g/dL (3.0-4.8) 07/17/17 06:30 Globulin 2.9 gm/dL 07/17/17 06:30 Albumin/Globulin Ratio 1.3 (1.1-1.8) 07/17/17 06:30 Discharge Exam - Head Exam Head Exam: NORMAL INSPECTION Discharge Plan - Follow Up Plan Condition: FAIR Disposition: HOME/ ROUTINE Instructions: Heart Failure (DC), Heart Failure (GEN), Pacemaker (DC), Pacemaker (GEN), Pulmonary Edema (DC), Pulmonary Edema (GEN), Ascites (DC), Ascites (GEN), Chest Pain (DC), Chest Pain (GEN) Referrals: Halina Mcleod MD [Primary Care Provider] -
--- NOTE | 2017-07-17 13:17 | CP.PCM.DIS ---
<Juan Adhikari - Last Filed: 07/17/17 16:15> Provider - Provider Date of Admission: 07/15/17 20:48 Attending physician: Edgar Garcia MD Primary care physician: Halina Mcleod MD Time Spent in preparation of Discharge (in minutes): 30 Diagnosis - Discharge Diagnosis (1) Foot ulcer Status: Acute Priority: High (2) Congestive heart failure Status: Acute Priority: Medium Hospital Course - Lab Results Lab Results: Micro Results 07/15/17 23:52 Foot - Left Gram Stain - Final 07/15/17 23:52 Foot - Left Wound Culture - Preliminary Coagulase Neg Staphylococcus Most Recent Lab Values WBC 10.1 10^3/ul (4.5-11.0) 07/17/17 06:30 RBC 4.45 10^6/uL (3.5-6.1) 07/17/17 06:30 Hgb 13.2 g/dL (14.0-18.0) L 07/17/17 06:30 Hct 40.2 % (42.0-52.0) L 07/17/17 06:30 MCV 90.3 fl (80.0-105.0) 07/17/17 06:30 MCH 29.7 pg (25.0-35.0) 07/17/17 06:30 MCHC 32.8 g/dl (31.0-37.0) 07/17/17 06:30 RDW 13.2 % (11.5-14.5) 07/17/17 06:30 Plt Count 217 10^3/uL (120.0-450.0) 07/17/17 06:30 MPV 11.8 fl (7.0-11.0) H 07/17/17 06:30 Gran % 71.5 % (50.0-68.0) H 07/17/17 06:30 Lymph % (Auto) 21.2 % (22.0-35.0) L 07/17/17 06:30 [place] % (Auto) 5.5 % (1.0-6.0) 07/17/17 06:30 Eos % (Auto) 1.5 % (1.5-5.0) 07/17/17 06:30 Baso % (Auto) 0.3 % (0.0-3.0) 07/17/17 06:30 Gran # 7.19 (1.4-6.5) H 07/17/17 06:30 Lymph # 2.1 (1.2-3.4) 07/17/17 06:30 [place] # 0.6 (0.1-0.6) 07/17/17 06:30 Eos # 0.2 (0.0-0.7) 07/17/17 06:30 Baso # 0.03 K/mm3 (0.0-2.0) 07/17/17 06:30 ESR 22 mm/hr (0.00-15.0) H 07/16/17 01:30 PT 10.5 Seconds (9.9-11.8) 07/15/17 17:30 INR 0.97 (0.93-1.08) 07/15/17 17:30 APTT 25.9 Seconds (23.7-30.8) 07/15/17 17:30 Sodium 139 mmol/L (132-148) 07/17/17 06:30 Potassium 4.2 mmol/L (3.6-5.0) 07/17/17 06:30 Chloride 102 mmol/L (98-107) 07/17/17 06:30 Carbon Dioxide 29 mmol/L (21-33) 07/17/17 06:30 Anion Gap 12 (10-20) 07/17/17 06:30 BUN 14 mg/dL (7-21) 07/17/17 06:30 Creatinine 0.7 mg/dL (0.5-1.4) 07/17/17 06:30 Est GFR ( Amer) > 60 07/17/17 06:30 Est GFR (Non-Af Amer) > 60 07/17/17 06:30 POC Glucose (mg/dL) 200 mg/dL (65-110) H 07/17/17 11:43 Random Glucose 126 mg/dL (70-110) H 07/17/17 06:30 Hemoglobin A1c 6.6 % (4.2-6.5) H D 07/16/17 06:10 Calcium 8.8 mg/dL (8.4-10.5) 07/17/17 06:30 Phosphorus 3.4 mg/dL (2.5-4.5) 07/17/17 06:30 Magnesium 1.9 mg/dL (1.7-2.2) 07/17/17 06:30 Total Bilirubin 0.8 mg/dL (0.2-1.3) 07/17/17 06:30 AST 30 U/L (17-59) 07/17/17 06:30 ALT 28 U/L (7-56) 07/17/17 06:30 Alkaline Phosphatase 89 U/L (38-126) 07/17/17 06:30 C-React Prot High Sens 5.78 mg/L (1.00-3.00) H 07/16/17 01:30 Total Protein 6.6 g/dL (5.8-8.3) 07/17/17 06:30 Albumin 3.7 g/dL (3.0-4.8) 07/17/17 06:30 Globulin 2.9 gm/dL 07/17/17 06:30 Albumin/Globulin Ratio 1.3 (1.1-1.8) 07/17/17 06:30 - Hospital Course Hospital Course: Patient is a 52 year old male with a PMHx of CHF who was admitted to the hospital for evaluation and treatment of a left foot lesion. With the use of physical examinations, lab work, and imaging the patient was diagnosed with and treated for left sub met head 1 ulceration. During their hospital stay the patient was seen by Dr. Shin, infectious disease, and Dr. Hensley, podiatry. During their hospital stay the patient underwent a soft tissue swelling of the foot, consistent with cellulitis, and an ulceration is identified plantar to the level of first metatarsal head, with a small collection of fluid measuring 1.8 x 0.3 x 0.9 cm. Podiatry recommendations include follow up in the outpatient setting for foot care. Infectious disease recommended outpatient antibiotics including doxycycline and augmentin. Prior to discharge the patient eloped from hospital. This is a brief summary of the patients hospital course. Please see patient chart for full details. Discharge Exam - Head Exam Head Exam: NORMAL INSPECTION - Additional Findings Additional findings: Constitutional: a&o x 4, nad Head and Neck: neck supple, no jvd, trachea midline, carotid midline, no cervical/head mass Eyes: mariluz, nonicteric sclera, eom intact ENT: auditory acuity grossly intact, throat not congested, no nasal deformity Cardio: rrr, no m/r/g, no carotid bruit, nml s1, s2 Pulm: no accessory muscle use, equal nml breath sounds bilaterally, ctab Abd: s/nt/nd, nbs x 4 q, no palpable masses Derm: no rashes, no ulcers, no lesions Extr: +L foot has a deep, non pustulating ulcer Neuro: cn II-XII grossly intact, ue and le 5/5 muscle strength bilaterally, no los ue, le bilaterally and core Discharge Plan - Follow Up Plan Condition: FAIR Disposition: HOME/ ROUTINE Patient education suggested?: Yes Instructions: Heart Failure (DC), Chest Pain (DC), Pacemaker (DC), Pulmonary Edema (DC), Ascites (DC) Additional Instructions: Patient Instructions: Take medications as prescribed. Follow up with PMD and referrals within three to five days from discharge. Return to emergency room for evaluation of intractable headache, fever, chills, dizziness, chest pain, shortness of breath, abdominal pain, nausea, vomiting, diarrhea, constipation, and urinary symptoms. Referrals: Halina Mcleod MD [Primary Care Provider] - Tracey Hensley DPM [Staff Provider] - <Edgar Garcia - Last Filed: 07/17/17 17:32> Provider - Provider Date of Admission: 07/15/17 20:48 Attending physician: Edgar Garcia MD Primary care physician: Halina Mcleod MD Time Spent in preparation of Discharge (in minutes): 35 Hospital Course - Lab Results Lab Results: Micro Results 07/15/17 23:52 Foot - Left Gram Stain - Final 07/15/17 23:52 Foot - Left Wound Culture - Preliminary Coagulase Neg Staphylococcus Most Recent Lab Values WBC 10.1 10^3/ul (4.5-11.0) 07/17/17 06:30 RBC 4.45 10^6/uL (3.5-6.1) 07/17/17 06:30 Hgb 13.2 g/dL (14.0-18.0) L 07/17/17 06:30 Hct 40.2 % (42.0-52.0) L 07/17/17 06:30 MCV 90.3 fl (80.0-105.0) 07/17/17 06:30 MCH 29.7 pg (25.0-35.0) 07/17/17 06:30 MCHC 32.8 g/dl (31.0-37.0) 07/17/17 06:30 RDW 13.2 % (11.5-14.5) 07/17/17 06:30 Plt Count 217 10^3/uL (120.0-450.0) 07/17/17 06:30 MPV 11.8 fl (7.0-11.0) H 07/17/17 06:30 Gran % 71.5 % (50.0-68.0) H 07/17/17 06:30 Lymph % (Auto) 21.2 % (22.0-35.0) L 07/17/17 06:30 [place] % (Auto) 5.5 % (1.0-6.0) 07/17/17 06:30 Eos % (Auto) 1.5 % (1.5-5.0) 07/17/17 06:30 Baso % (Auto) 0.3 % (0.0-3.0) 07/17/17 06:30 Gran # 7.19 (1.4-6.5) H 07/17/17 06:30 Lymph # 2.1 (1.2-3.4) 07/17/17 06:30 [place] # 0.6 (0.1-0.6) 07/17/17 06:30 Eos # 0.2 (0.0-0.7) 07/17/17 06:30 Baso # 0.03 K/mm3 (0.0-2.0) 07/17/17 06:30 ESR 22 mm/hr (0.00-15.0) H 07/16/17 01:30 PT 10.5 Seconds (9.9-11.8) 07/15/17 17:30 INR 0.97 (0.93-1.08) 07/15/17 17:30 APTT 25.9 Seconds (23.7-30.8) 07/15/17 17:30 Sodium 139 mmol/L (132-148) 07/17/17 06:30 Potassium 4.2 mmol/L (3.6-5.0) 07/17/17 06:30 Chloride 102 mmol/L (98-107) 07/17/17 06:30 Carbon Dioxide 29 mmol/L (21-33) 07/17/17 06:30 Anion Gap 12 (10-20) 07/17/17 06:30 BUN 14 mg/dL (7-21) 07/17/17 06:30 Creatinine 0.7 mg/dL (0.5-1.4) 07/17/17 06:30 Est GFR ( Amer) > 60 07/17/17 06:30 Est GFR (Non-Af Amer) > 60 07/17/17 06:30 POC Glucose (mg/dL) 200 mg/dL (65-110) H 07/17/17 11:43 Random Glucose 126 mg/dL (70-110) H 07/17/17 06:30 Hemoglobin A1c 6.6 % (4.2-6.5) H D 07/16/17 06:10 Calcium 8.8 mg/dL (8.4-10.5) 07/17/17 06:30 Phosphorus 3.4 mg/dL (2.5-4.5) 07/17/17 06:30 Magnesium 1.9 mg/dL (1.7-2.2) 07/17/17 06:30 Total Bilirubin 0.8 mg/dL (0.2-1.3) 07/17/17 06:30 AST 30 U/L (17-59) 07/17/17 06:30 ALT 28 U/L (7-56) 07/17/17 06:30 Alkaline Phosphatase 89 U/L (38-126) 07/17/17 06:30 C-React Prot High Sens 5.78 mg/L (1.00-3.00) H 07/16/17 01:30 Total Protein 6.6 g/dL (5.8-8.3) 07/17/17 06:30 Albumin 3.7 g/dL (3.0-4.8) 07/17/17 06:30 Globulin 2.9 gm/dL 07/17/17 06:30 Albumin/Globulin Ratio 1.3 (1.1-1.8) 07/17/17 06:30 Attending/Attestation - Attestation I have personally seen and examined this patient.: Yes I have fully participated in the care of the patient.: Yes I have reviewed all pertinent clinical information, including history, physical exam and plan: Yes Notes (Text): Patient eloped without medication scripts or discharge paper work.
--- NOTE | 2017-07-17 15:22 | CP.PCM.PN ---
<Bonnie Lane - Last Filed: 07/17/17 15:11> Subjective - Date & Time of Evaluation Date of Evaluation: 07/17/17 Time of Evaluation: 13:00 - Subjective Subjective: Podiatry Progress Note - Dr. Weir 52 male patient PMHx DM seen at bedside for left foot ulceration. Patient seen resting comfortably, AAOx3 and NAD. Patient denies any pain to the bottom of his left foot today. Patient adamant about being discharged today to return to work. Patient reports continued numbness, burning, tingling to bilateral LE. Patient denies N/V/F/D/C/SOB/calf pain. No other complaints at this time. Objective - Vital Signs/Intake and Output Vital Signs (last 24 hours): Temp Pulse Resp BP Pulse Ox 98.0 F 75 18 154/90 H 95 07/17/17 06:00 07/17/17 06:00 07/17/17 06:00 07/17/17 06:00 07/17/17 06:00 Intake and Output: 07/17/17 07/17/17 06:59 18:59 Intake Total 1000 600 Output Total 0 Balance 1000 600 - Medications Medications: Current Medications Heparin Sodium (Porcine) (Heparin) 5,000 units SC Q8 LAY PRN Reason: Protocol Last Admin: 07/17/17 14:02 Dose: 5,000 units Vancomycin HCl (Vancomycin 1gm) 1 gm in 250 mls @ 167 mls/hr IVPB Q12 LAY PRN Reason: Protocol Last Admin: 07/17/17 09:07 Dose: 167 mls/hr Piperacillin Sod/Tazobactam Sod (Zosyn 3.375 In Ns 100ml) 100 mls @ 200 mls/hr IVPB Q6 LAY PRN Reason: Protocol Stop: 07/23/17 06:01 Last Admin: 07/17/17 11:56 Dose: 200 mls/hr Insulin Human Regular (Humulin R Low) 0 units SC ACHS LAY PRN Reason: Protocol Last Admin: 07/17/17 11:54 Dose: 2 units Mupirocin (Bactroban Ointment) 0 gm TOP BID LAY Last Admin: 07/17/17 09:06 Dose: Not Given Pantoprazole Sodium (Protonix Ec Tab) 40 mg PO 0600 LAY Last Admin: 07/17/17 06:28 Dose: 40 mg - Labs Labs: 07/17/17 06:30 07/17/17 06:30 PT 10.5 Seconds (9.9-11.8) 07/15/17 17:30 INR 0.97 (0.93-1.08) 07/15/17 17:30 APTT 25.9 Seconds (23.7-30.8) 07/15/17 17:30 - Constitutional Appears: Well, Non-toxic, No Acute Distress - Extremities Exam Additional comments: VASC: DP and PT pulses palpable 2/4 b/l. CFT <3 seconds to all digits x10. TG warm to warm. Nonpitting edema noted to bilateral LE. No increase in warmth noted to left sub met head 1 ulceration. NEURO: Gross sensation decreased b/l. DERM: Ulceration measuring approximately 1.5 x 2.5 x 0.2 cm noted to plantar aspect of left 1st metatarsal head - ulcer is noted to have a 100% granular base with a hyperkeratotic rim, undermining noted from 3 o'clock to 6 o'clock, no tunneling noted, no purulence, no drainage, no fluctuance, minimal malodor. Pre-ulcerative lesions noted to left 1st and 2nd distal silvia, no fluctuance noted. ORTHO: No pain on palpation noted. - Neurological Exam Neurological Exam: Alert, Awake, Oriented x3 - Psychiatric Exam Psychiatric exam: Normal Affect, Normal Mood Assessment and Plan - Assessment and Plan (Free Text) Assessment: 52 year old DM male with left sub met head 1 ulceration 2/2 diabetic neuropathy Plan: Patient seen and evaluated at bedside with attending, Dr. Hensley Chart, vitals, labs reviewed =afebrile, WBC 10.1, ESR 22, A1c 6.6 C/w bactroban + optifoam to plantar ulceration left foot Darco forefoot offloading wedge shoe dispensed by physical therapy LLE MRI reviewed: - +cellulitis - abscess vs. adventitial bursitis at plantar 1st met head deep to ulceration, measuring approximately 1.8 x 0.3 x 0.9 cm - negative OM Wound cx prelim report shows coagulase neg staph Continue abx per medicine Patient to follow up in wound care clinic next week for outpatient care Podiatry will continue to follow patient while in house <Bj Weir - Last Filed: 07/17/17 18:51> Objective - Vital Signs/Intake and Output Vital Signs (last 24 hours): Temp Pulse Resp BP Pulse Ox 98.0 F 75 18 154/90 H 95 07/17/17 06:00 07/17/17 06:00 07/17/17 06:00 07/17/17 06:00 07/17/17 06:00 Intake and Output: 07/17/17 07/17/17 06:59 18:59 Intake Total 1000 600 Output Total 0 Balance 1000 600 - Labs Labs: 07/17/17 06:30 07/17/17 06:30 PT 10.5 Seconds (9.9-11.8) 07/15/17 17:30 INR 0.97 (0.93-1.08) 07/15/17 17:30 APTT 25.9 Seconds (23.7-30.8) 07/15/17 17:30 Attending/Attestation - Attestation I have personally seen and examined this patient.: Yes I have fully participated in the care of the patient.: Yes I have reviewed all pertinent clinical information, including history, physical exam and plan: Yes
== END 2017-07-17 14:30 | disposition left against medical advice (07) | DRG 638 ==
LOC: ED 16:35 → ERH 20:48 → 3RSO 22:46
PROVIDERS: ADMIT Internal Medicine; ATTEND Hospitalist
DX: E11.621 Type 2 diabetes mellitus with foot ulcer (principal); I42.9 Cardiomyopathy, unspecified; L97.809 Non-pressure chronic ulcer of other part of unspecified lower leg with unspecified severity; E11.40 Type 2 diabetes mellitus with diabetic neuropathy, unspecified; Z68.41 Body mass index [BMI] 40.0-44.9, adult; I11.0 Hypertensive heart disease with heart failure; I50.9 Heart failure, unspecified; L03.116 Cellulitis of left lower limb; E66.01 Morbid (severe) obesity due to excess calories; L97.529 Non-pressure chronic ulcer of other part of left foot with unspecified severity; L97.519 Non-pressure chronic ulcer of other part of right foot with unspecified severity; Z91.14 Patient's other noncompliance with medication regimen; B95.7 Other staphylococcus as the cause of diseases classified elsewhere

== ENCOUNTER 2019-02-23 11:17 | Emergency (ER) | payer SELFPAY ==
[2019-02-23 11:18] VITALS: PULSE 85
[2019-02-23 11:36] VITALS: BMI 43.8
[2019-02-23 11:57] VITALS: RESP 18; TEMP 98.1
--- NOTE | 2019-02-23 12:14 | ED PDOC ---
Arrival/HPI - General Historian: Patient - History of Present Illness Narrative History of Present Illness (Text): 02/23/19 12:10 CC: cough, sob HPI: 53 yo male w/ PMH of HTN, DM2 and CHF presents to ED for evaluation of a cough and shortness of breath that has been progressively worsening past 2-3 days. Patient states that last night he would only be able to sleep for 30 tere clare at a time before he wakes up with coughing spells. This was very bothersome so he decided to come to the hospital because he has a similar episode in the past for which he was prescribed a Z-pack. Patient admits to sick contact at work, cough with greenish sputum production, sweats overnight. Patient did not record a temperature. Denies orthopnea, chest pain, n/v, constipation or diarrhea, and dysuria. 02/23/19 12:16 Time/Duration: < week Symptom Onset: Sudden Symptom Course: Worsening Activities at Onset: Rest Context: Sitting <Nabeel Fiore - Last Filed: 02/23/19 13:16> <Flavio Garcia - Last Filed: 02/23/19 13:40> - General Chief Complaint: Flu-like Symptoms Time Seen by Provider: 02/23/19 12:10 Past Medical History - Provider Review Nursing Documentation Reviewed: Yes Primary Care Provider: Halina Mcleod - Infectious Disease Hx of Infectious Diseases: None - Tetanus Immunization Tetanus Immunization: Unknown - Past Medical History Past Medical History: No Previous - Cardiac Hx Congestive Heart Failure: Yes Hx Hypertension: Yes - Pulmonary Hx Respiratory Disorders: No - Neurological Hx Neurological Disorder: No - HEENT Hx HEENT Disorder: No - Renal Hx Renal Disorder: No - Endocrine/Metabolic Hx Diabetes Mellitus Type 2: Yes - Hematological/Oncological Hx Blood Disorders: No - Integumentary Hx Dermatological Disorder: No - Musculoskeletal/Rheumatological Hx Falls: No - Gastrointestinal Hx Gastrointestinal Disorders: No - Genitourinary/Gynecological Hx Genitourinary Disorders: No - Psychiatric Hx Psychophysiologic Disorder: No Hx Substance Use: No - Past Surgical History Past Surgical History: No Previous - Anesthesia Hx Anesthesia: No Hx Anesthesia Reactions: No Hx Malignant Hyperthermia: No - Suicidal Assessment Feels Threatened In Home Enviroment: No <Nabeel Fiore - Last Filed: 02/23/19 13:16> Family/Social History Family/Social History: No Known Family HX Smoking Status: Never Smoked Hx Alcohol Use: Yes Frequency of alcohol use: Few days per week Hx Substance Use: No Hx Substance Use Treatment: No <Nabeel Fiore - Last Filed: 02/23/19 13:16> Allergies/Home Meds <Juanito Fioreaser - Last Filed: 02/23/19 13:16> <Bosompem,Flavio - Last Filed: 02/23/19 13:40> Allergies/Adverse Reactions: Allergies No Known Allergies Allergy (Verified 02/23/19 11:46) Review of Systems - Physician Review All systems were reviewed & negative as marked: Yes - Review of Systems Constitutional: Night Sweats. absent: Fatigue, Weight Change, Fevers Eyes: Normal. absent: Vision Changes, Photophobia ENT: Normal. absent: Hearing Changes, Tinnitus Respiratory: Cough, Sputum. absent: Normal Cardiovascular: absent: Chest Pain, Palpitations, ALEXANDER, Orthopnea Gastrointestinal: Normal. absent: Abdominal Pain, Stool Changes, Constipation, Diarrhea, Nausea, Vomiting Genitourinary Male: Normal. absent: Dysuria, Frequency, Hematuria Musculoskeletal: Normal. absent: Arthralgias, Back Pain, Neck Pain, Joint Swelling, Myalgias Skin: Normal. absent: Rash, Pruritis, Skin Lesions, Laceration Neurological: Normal. absent: Headache, Dizziness, Focal Weakness Endocrine: Normal Psychiatric: Normal. absent: Anxiety, Depression, Suicidal Ideation <Nabeel Fiore - Last Filed: 02/23/19 13:16> Physical Exam Vital Signs Reviewed: Yes Vital Signs Temp Pulse Resp BP Pulse Ox 02/23/19 11:18 98.1 F 87 18 162/90 H 94 L Temperature: Afebrile Blood Pressure: Normal Pulse: Regular Respiratory Rate: Normal Appearance: Positive for: Well-Appearing, Non-Toxic, Comfortable Pain Distress: None Mental Status: Positive for: Alert and Oriented X 3 - Systems Exam Head: Present: Atraumatic, Normocephalic. No: Tenderness, Contusion, Swelling, Ecchymosis, Abrasion Pupils: Present: PERRL. No: Sluggish, Non-Reactive Extroacular Muscles: Present: EOMI. No: Gaze Palsy, Entrapment Mouth: Present: Moist Mucous Membranes. No: Dry, Drooling Neck: Present: Normal Range of Motion. No: Meningeal Signs, JVD Respiratory/Chest: Present: Good Air Exchange, Rhonchi. No: Respiratory Distress, Accessory Muscle Use, Wheezes, Rales, Tachypneic, Tender to Palpation Cardiovascular: Present: Regular Rate and Rhythm, Normal S1, S2. No: Murmurs, Irregular Rhythm, Tachycardic, Bradycardic Abdomen: Present: Normal Bowel Sounds. No: Tenderness, Distention, Peritoneal Signs Upper Extremity: Present: Normal Inspection. No: Cyanosis, Edema Lower Extremity: Present: Normal Inspection. No: Edema, CALF TENDERNESS, NORMAL PULSES Neurological: Present: GCS=15, CN II-XII Intact, Speech Normal Skin: Present: Warm, Dry, Normal Color. No: Rashes, Diaphoretic, Erythematous Psychiatric: Present: Alert, Oriented x 3, Normal Insight, Normal Concentration <Nabeel Fiore - Last Filed: 02/23/19 13:16> Vital Signs Temp Pulse Resp BP Pulse Ox 02/23/19 11:18 98.1 F 87 18 162/90 H 94 L <Flavio Garcia - Last Filed: 02/23/19 13:40> Medical Decision Making ED Course and Treatment: 02/23/19 12:19 Impression 53 yo male w/ PMH HTN, DM2, and CHF presents to ED for evaluation of cough and sob for past 3 days. Plan -CBC/CMP -CXR -Troponin -BNP -VBG -1x dose IV of Lasix 40mg -1x dose of oral azithromycin 500mg -1x dose of Mag Ox 400mg Prior Visits 08/14/14: ETOH 05/14/15: Chest Pain 04/22/16: CHF exacerbation 07/15/17: Diabetic foot ulcer, Cellulitis Progress Notes Spoke with Dr. Dc who patient says is his PMD. Dr. Dc suggested to admit the patient to hospitalist if patient needs admission Patient has 1 point on CURB-65 which recommends outpatient treatment for PNA 1x dose of azithromycin given in ED, will d/c with 7 day script Will need to f/u with PMD within a week 02/23/19 13:29 Re-evaluation Time: 13:28 Reassessment Condition: Re-examined, Improving,but remains with symptoms - Lab Interpretations Lab Results: 02/23/19 12:25 02/23/19 12:25 Lab Results 02/23/19 12:50: Urine Color Yellow, Urine Appearance Sl cloudy, Urine pH 6.5, Ur Specific [place] 1.020, Urine Protein 100 H, Urine Glucose (UA) 100 H, Urine Ketones Negative, Urine Blood Negative, Urine Nitrate Negative, Urine Bilirubin Negative, Urine Urobilinogen 1.0 H, Ur Leukocyte Esterase Negative, Urine RBC None, Urine WBC None 02/23/19 12:28: pO2 26 L, VBG pH 7.37, VBG pCO2 57.0, VBG HCO3 33.0 H, VBG Total CO2 34.7 H, VBG O2 Sat (Calc) 43.5, VBG Base Excess 6.0 H, VBG Potassium 4.4, Glucose 248 H, Lactate 1.5, FiO2 21.0, Sodium 134.0, Chloride 97.0 L, Venous Blood Potassium 4.4 02/23/19 12:25: Sodium 137, Potassium 4.7, Chloride 96 L, Carbon Dioxide 33, Anion Gap 13, BUN 24 H, Creatinine 1.0, Est GFR ( Amer) > 60, Est GFR (Non-Af Amer) > 60, Random Glucose 246 H, Calcium 8.5, Magnesium 1.6 L, Total Bilirubin 0.7, AST 24, ALT 29, Alkaline Phosphatase 76, Troponin I 0.04, NT-Pro-B Natriuret Pep 2270 H, Total Protein 6.5, Albumin 3.6, Globulin 2.9, Albumin/Globulin Ratio 1.3 02/23/19 12:25: PT 12.3, INR 1.09, APTT 32.9 02/23/19 12:25: WBC 14.1 H, RBC 4.70, Hgb 14.1, Hct 43.4, MCV 92.3, MCH 30.0, MCHC 32.5, RDW 13.7, Plt Count 203, MPV 12.2 H, Neut % (Auto) 86.8 H, Lymph % (Auto) 6.6 L, [place] % (Auto) 5.8, Eos % (Auto) 0.7 L, Baso % (Auto) 0.1, Lymph # (Auto) 0.9 L, [place] # (Auto) 0.8 H, Eos # (Auto) 0.1, Baso # (Auto) 0.02, Absolute Neuts (auto) 12.22 H I have reviewed the lab results: Yes Interpretation: Abnormal lab values - RAD Interpretation Radiology Orders: 02/23/19 11:53 CHEST PORTABLE [RAD] Stat Radiology Results Chest X-Ray 02/23/19 11:53 IMPRESSION: Likely stable nonacute cardiopulmonary pattern, however, motion artifacts degrade the quality of this examination significantly and repeat radiography is recommended. <Nabeel Fiore - Last Filed: 02/23/19 13:16> ED Course and Treatment: 02/23/19 13:40 Patient Seen with Resident: In agreement with resident note which contains more details about the patient. Patient seen and evaluated with resident. Came up with plan and treatment together. - Lab Interpretations Lab Results: pO2 26 mm/Hg (30-55) L 02/23/19 12:28 VBG pH 7.37 (7.32-7.43) 02/23/19 12:28 VBG pCO2 57.0 (40-60) 02/23/19 12:28 VBG HCO3 33.0 mmol/l (21-28) H 02/23/19 12:28 VBG Total CO2 34.7 mmol.L (22-28) H 02/23/19 12:28 VBG O2 Sat (Calc) 43.5 % (40-65) 02/23/19 12:28 VBG Base Excess 6.0 mmol/L (0.0-2.0) H 02/23/19 12:28 VBG Potassium 4.4 mmol/L (3.6-5.2) 02/23/19 12:28 Sodium 134.0 mmol/L (132-148) 02/23/19 12:28 Chloride 97.0 mmol/L (98-107) L 02/23/19 12:28 Glucose 248 mg/dl (75-110) H 02/23/19 12:28 Lactate 1.5 mmol/L (0.7-2.1) 02/23/19 12:28 FiO2 21.0 % 02/23/19 12:28 PT 12.3 SECONDS (9.4-12.5) 02/23/19 12:25 INR 1.09 02/23/19 12:25 APTT 32.9 Seconds (26.9-38.3) 02/23/19 12:25 Troponin I 0.04 ng/mL 02/23/19 12:25 NT-Pro-B Natriuret Pep 2270 pg/mL (0-450) H 02/23/19 12:25 Total Bilirubin 0.7 mg/dL (0.2-1.3) 02/23/19 12:25 AST 24 U/L (17-59) 02/23/19 12:25 ALT 29 U/L (7-56) 02/23/19 12:25 Alkaline Phosphatase 76 U/L (38-126) 02/23/19 12:25 Total Protein 6.5 g/dL (5.8-8.3) 02/23/19 12:25 Albumin 3.6 g/dL (3.0-4.8) 02/23/19 12:25 Globulin 2.9 gm/dL 02/23/19 12:25 Albumin/Globulin Ratio 1.3 (1.1-1.8) 02/23/19 12:25 Urine Color Yellow (YELLOW) 02/23/19 12:50 Urine Appearance Sl cloudy (CLEAR) 02/23/19 12:50 Urine pH 6.5 (4.7-8.0) 02/23/19 12:50 Ur Specific [place] 1.020 (1.005-1.035) 02/23/19 12:50 Urine Protein 100 mg/dL (<30 mg/dL) H 02/23/19 12:50 Urine Glucose (UA) 100 mg/dL (NEGATIVE) H 02/23/19 12:50 Urine Ketones Negative mg/dL (NEGATIVE) 02/23/19 12:50 Urine Blood Negative (NEGATIVE) 02/23/19 12:50 Urine Nitrate Negative (NEGATIVE) 02/23/19 12:50 Urine Bilirubin Negative (NEGATIVE) 02/23/19 12:50 Urine Urobilinogen 1.0 E.U./dL (<1 E.U./dL) H 02/23/19 12:50 Ur Leukocyte Esterase Negative Kayden/uL (NEGATIVE) 02/23/19 12:50 Urine RBC None /hpf (0-2) 02/23/19 12:50 Urine WBC None /hpf (0-6) 02/23/19 12:50 - RAD Interpretation Radiology Orders: 02/23/19 11:53 CHEST PORTABLE [RAD] Stat - Medication Orders Current Medication Orders: Discontinued Medications Azithromycin (Zithromax) 500 mg PO STAT STA; Protocol Stop: 02/23/19 13:25 Furosemide (Lasix) 40 mg IVP STAT STA Stop: 02/23/19 13:08 Magnesium Oxide (Mag-Ox) 400 mg PO STAT STA Stop: 02/23/19 13:29 <Flavio Garcia - Last Filed: 02/23/19 13:40> Disposition/Present on Arrival - Present on Arrival Any Indicators Present on Arrival: Yes History of DVT/PE: No History of Uncontrolled Diabetes: Yes Urinary Catheter: No History of Decub. Ulcer: No History Surgical Site Infection Following: None - Disposition Have Diagnosis and Disposition been Completed?: Yes Disposition Time: 13:30 Patient Plan: Discharge <Nabeel Fiore - Last Filed: 02/23/19 13:16> <Flavio Garcia - Last Filed: 02/23/19 13:40> - Disposition Diagnosis: Community acquired bacterial pneumonia Disposition: HOME/ ROUTINE Patient Problems: Current Active Problems Problem Status Onset Community acquired bacterial pneumonia Acute Condition: FAIR Discharge Instructions (ExitCare): Community-Acquired Pneumonia, Adult (DC) Prescriptions: Azithromycin [Zithromax] 500 mg PO DAILY #6 tablet Forms: [employer] (Malaysian)
[2019-02-23 12:31] LABS: VENOUS BLOOD GAS PO2 26 mm/Hg (30-55); VENOUS BLOOD PH 7.37 (7.32-7.43)
[2019-02-23 12:39] LABS: BASO # 0.02 K/mm3 (0.0-2.0); BASO % 0.1 % (0.0-3.0); EOS # 0.1 (0.0-0.7); EOS % 0.7 % (1.5-5.0); HEMOGLOBIN 14.1 g/dL (14.0-18.0); LYMPH # 0.9 (1.2-3.4); LYMPH % 6.6 % (22.0-35.0); MEAN CELL VOLUME 92.3 fl (80.0-105.0); MEAN CORPUSCULAR HGB CONC 32.5 g/dl (31.0-37.0); MEAN PLATELET VOLUME 12.2 fl (7.0-11.0); MONO # 0.8 (0.1-0.6); MONO % 5.8 % (1.0-6.0); RBC 4.7 10^6/uL (3.5-6.1); RED CELL DISTRIBUTION WIDTH 13.7 % (11.5-14.5); WHITE BLOOD COUNT 14.1 10^3/uL (4.5-11.0)
[2019-02-23 12:48] LABS: ALB/GLOB RATIO 1.3 (1.1-1.8); ALBUMIN 3.6 g/dL (3.0-4.8); ALT/SGPT 29 U/L (7-56); AST/SGOT 24 U/L (17-59); BLOOD UREA NITROGEN 24 mg/dL (7-21); CALCIUM 8.5 mg/dL (8.4-10.5); GFR NON-AFRICAN AMERICAN > 60; INR 1.09; PARTIAL THROMBOPLASTIN TIME 32.9 Seconds (26.9-38.3); PROTHROMBIN TIME 12.3 SECONDS (9.4-12.5)
--- NOTE | 2019-02-23 12:52 | RAD ---
Date of service: 02/23/2019 HISTORY: cough COMPARISON: No prior. TECHNIQUE: 1 view obtained. FINDINGS: LUNGS: Motion artifacts preclude evaluation of the chest with no gross infiltrate appreciated bilaterally. PLEURA: No significant pleural effusion identified, no large pneumothorax apparent. CARDIOVASCULAR: No aortic atherosclerotic calcification present. Stable cardiac size. No likely pulmonary vascular congestion. OSSEOUS STRUCTURES: No significant abnormalities. VISUALIZED UPPER ABDOMEN: Normal. OTHER FINDINGS: None. IMPRESSION: Likely stable nonacute cardiopulmonary pattern, however, motion artifacts degrade the quality of this examination significantly and repeat radiography is recommended.
[2019-02-23 13:00] LABS: B-TYPE NATRIURETIC PEPTIDE 2270 pg/mL (0-450); TROPONIN I 0.04 ng/mL
[2019-02-23 13:03] LABS: PH,URINE 6.5 (4.7-8.0); URINE APPEARANCE SL CLOUDY (CLEAR); URINE BILIRUBIN NEGATIVE (NEGATIVE); URINE BLOOD NEGATIVE (NEGATIVE); URINE COLOR YELLOW (YELLOW); URINE GLUCOSE (UA) 100 mg/dL (NEGATIVE); URINE LEUKOCYTE ESTERASE NEGATIVE Leu/uL (NEGATIVE); URINE PROTEIN 100 mg/dL (<30 mg/dL)
[2019-02-23] MEDS ORDERED: Magnesium Oxide 400 mg Tab UD PO STA (13:28)
[2019-02-23 13:50] VITALS: BP 156/98
[2019-02-23 13:51] VITALS: PULSE 95; O2SAT 100
--- NOTE | 2019-02-24 10:29 | CARD ---
APPROVED REPORT Date of service: 02/23/2019 EKG Measurement Heart [id number] <Conclusion> Normal sinus rhythm Possible Left atrial enlargement Nonspecific T wave abnormality Abnormal ECG
== END 2019-02-23 13:54 | disposition home or self-care (01) ==
LOC: ED 11:17
DX: J15.9 Unspecified bacterial pneumonia (principal); I11.0 Hypertensive heart disease with heart failure; I50.9 Heart failure, unspecified; E11.621 Type 2 diabetes mellitus with foot ulcer
CPT/HCPCS: 71045; 80053; 81001; 82803; 83735; 83880; 84484; 85025; 85610; 85730; 87040; 93005; 96374; 99284; J1940

== ENCOUNTER 2019-03-10 12:58 | Inpatient (IN) | payer MEDICAID, OTHER ==
[2019-03-10 12:58] VITALS: PULSE 85; BMI 43.8
--- NOTE | 2019-03-10 13:32 | ED PDOC ---
Arrival/HPI - General Chief Complaint: Shortness Of Breath Time Seen by Provider: 03/10/19 13:05 Historian: Patient - History of Present Illness Narrative History of Present Illness (Text): 03/10/19 13:05 Luis Nunes is a 53 year old male, with a past medical history of CHF, diabetes, stress test 3 years ago, and hypertension, who presents to the emergency department complaining of shortness of breath since a few days. Pt's shortness of breath is worsened lying down associated productive cough. Patient also notes chest pressure after walking short distances and was previously able to walk a few blocks without issue. Patient was evaluated for similar complaints 2 weeks ago; was discharged with z-pack and noted improvement of symptoms for 2 days. Patient informs symptoms began once returning to work. Pt informs current complaints are similar to CHF symptoms. Patient denies seeing Dr. Mcleod for current complaints. Patient denies abdominal pain, nausea, vomiting, diarrhea, dysuria, hematuria, back pain, neck pain, fevers, headaches, dizziness, or any other complaints. PMD: Dr. Mcleod Time/Duration: < week Symptom Course: Unchanged Activities at Onset: Light Context: Home Past Medical History - Provider Review Nursing Documentation Reviewed: Yes - Infectious Disease Hx of Infectious Diseases: None - Tetanus Immunization Tetanus Immunization: Unknown - Past Medical History Past Medical History: No Previous - Cardiac Hx Congestive Heart Failure: Yes Hx Hypertension: Yes - Pulmonary Hx Respiratory Disorders: No - Neurological Hx Neurological Disorder: No - HEENT Hx HEENT Disorder: No - Renal Hx Renal Disorder: No - Endocrine/Metabolic Hx Diabetes Mellitus Type 2: Yes - Hematological/Oncological Hx Blood Disorders: No - Integumentary Hx Dermatological Disorder: No - Musculoskeletal/Rheumatological Hx Musculoskeletal Disorders: No Hx Falls: No - Gastrointestinal Hx Gastrointestinal Disorders: No - Genitourinary/Gynecological Hx Genitourinary Disorders: No - Psychiatric Hx Psychophysiologic Disorder: No Hx Substance Use: No - Past Surgical History Past Surgical History: No Previous - Anesthesia Hx Anesthesia: No Hx Anesthesia Reactions: No Hx Malignant Hyperthermia: No - Suicidal Assessment Feels Threatened In Home Enviroment: No Family/Social History - Physician Review Nursing Documentation Reviewed: Yes Family/Social History: Unknown Family HX Smoking Status: Never Smoked Hx Alcohol Use: Yes Hx Substance Use: No Hx Substance Use Treatment: No Allergies/Home Meds Allergies/Adverse Reactions: Allergies No Known Allergies Allergy (Verified 02/23/19 11:46) Review of Systems - Physician Review All systems were reviewed & negative as marked: Yes - Review of Systems Constitutional: absent: Fevers Respiratory: SOB, Cough, Sputum Cardiovascular: Chest Pain (described as chest pressure when walking) Gastrointestinal: absent: Abdominal Pain, Diarrhea, Nausea, Vomiting Genitourinary Male: absent: Dysuria, Hematuria Musculoskeletal: absent: Back Pain, Neck Pain Neurological: absent: Headache, Dizziness Physical Exam - Systems Exam Head: Present: Atraumatic, Normocephalic Pupils: Present: PERRL Extroacular Muscles: Present: EOMI Conjunctiva: Present: Normal Mouth: Present: Moist Mucous Membranes Neck: Present: Normal Range of Motion Respiratory/Chest: Present: Clear to Auscultation, Other (O2 94 on room air). No: Respiratory Distress, Accessory Muscle Use, Wheezes, Rales, Rhonchi Cardiovascular: Present: Regular Rate and Rhythm, Normal S1, S2. No: Murmurs, Rub, Gallop Abdomen: Present: Normal Bowel Sounds. No: Tenderness, Distention, Peritoneal Signs, Rebound, Guarding Back: Present: Normal Inspection Upper Extremity: Present: Normal Inspection. No: Cyanosis, Edema Lower Extremity: Present: Edema (+1 pitting edema bilaterally) Neurological: Present: GCS=15, CN II-XII Intact, Speech Normal Skin: Present: Warm, Dry, Normal Color. No: Rashes Psychiatric: Present: Alert, Oriented x 3, Normal Insight, Normal Concentration Medical Decision Making ED Course and Treatment: 03/10/19 13:05 Impression: Patient is a 53 year old male, with a history of CHF, diabetes, stress test 3 years ago, and hypertension, who presents to the emergency department complaining of shortness of breath since a few days; notes associated productive cough and chest pressure when walking. States symptoms are similar to CHF exacerbation Differential Diagnosis included but are not limited to: CHF exacerbation r/o pneumonia Plan: -- Labs -- EKG -- Chest X-Ray -- Lasix -- Reassess and disposition Prior Visits: Notes and results from previous visits were reviewed. Progress Notes: 03/10/19 14:44 Patient's troponin is 0.4 and BNP elevated. Patient has an ECHO with EF 25% in 2016. HEART Score 5. Patient needs to be placed on observation for CHF/chest pain r/o ACS. Patient agrees stay in the hospital. Case was discussed with Dr. Aman Adhikari. who agrees tp place on observation. Consult previously with Dr. Mckenzie so consult placed. - RAD Interpretation Narrative RAD Interpretations (Text): 03/10/19 14:04 Chest X-Ray shows: IMPRESSION: No active disease Radiology Orders: 03/10/19 13:16 CHEST PORTABLE [RAD] Stat Business Assistant: Radiologist - EKG Interpretation EKG Interpretation (Text): 03/10/19 13:43 Reviewed EKG, shows: NSR at 86 BPM w/ PVC. Prolonged QT. No change from 02/23/19 Interpreted by ED Physician: Yes Type: 12 lead EKG - Medication Orders Current Medication Orders: Discontinued Medications Furosemide (Lasix) 40 mg IVP STAT STA Stop: 03/10/19 13:16 ERASMO Risk Score for UA/NSTEMI - ERASMO Risk Score Age > 64: NO 3 or more CAD Risk Factors: YES Known CAD (Stenosis greater than 50%): NO Aspirin use in past 7 days: NO Severe Angina: NO EKG ST changes greater than 0.5mm: NO Positive Cardiac Marker: NO ERSAMO Score: 1 % risk at 14 days of: all cause mortality, new or recurrent CA, or severe recurrent ischemia requiring urgen revascularization: 5% - Scribe Statement The provider has reviewed the documentation as recorded by the Scribe Eligio Simons All medical record entries made by the Scribe were at my direction and personally dictated by me. I have reviewed the chart and agree that the record accurately reflects my personal performance of the history, physical exam, medical decision making, and the department course for this patient. I have also personally directed, reviewed, and agree with the discharge instructions and disposition. Disposition/Present on Arrival - Present on Arrival Any Indicators Present on Arrival: Yes History of DVT/PE: No History of Uncontrolled Diabetes: Yes Urinary Catheter: No History of Decub. Ulcer: No History Surgical Site Infection Following: None - Disposition Have Diagnosis and Disposition been Completed?: Yes Diagnosis: Congestive heart failure, Chest pain Disposition: HOSPITALIZED Disposition Time: 14:47 Patient Plan: Observation Condition: FAIR Discharge Instructions (ExitCare): Heart Failure (ED), Chest Pain (ED) Forms: [employer] (Cook Islander)
[2019-03-10 13:41] LABS: VENOUS BLOOD GAS BASE EXCESS 5.5 mmol/L (0.0-2.0); VENOUS BLOOD GAS PO2 66 mm/Hg (30-55)
[2019-03-10 13:48] LABS: BASO # 0.03 K/mm3 (0.0-2.0); BASO % 0.3 % (0.0-3.0); EOS # 0.2 (0.0-0.7); EOS % 1.4 % (1.5-5.0); HEMOGLOBIN 13.5 g/dL (14.0-18.0); LYMPH % 17.5 % (22.0-35.0); MEAN CELL VOLUME 91.8 fl (80.0-105.0); MEAN CORPUSCULAR HEMOGLOBIN 29.8 pg (25.0-35.0); MEAN CORPUSCULAR HGB CONC 32.5 g/dl (31.0-37.0); MEAN PLATELET VOLUME 11.7 fl (7.0-11.0); MONO # 0.5 (0.1-0.6); MONO % 4.4 % (1.0-6.0); RBC 4.53 10^6/uL (3.5-6.1); RED CELL DISTRIBUTION WIDTH 13.8 % (11.5-14.5); WHITE BLOOD COUNT 11.7 10^3/uL (4.5-11.0)
[2019-03-10 13:55] LABS: BLOOD UREA NITROGEN 20 mg/dL (7-21); CALCIUM 8.4 mg/dL (8.4-10.5); GFR NON-AFRICAN AMERICAN > 60
[2019-03-10] MEDS ORDERED: Magnesium Oxide 400 mg Tab UD PO STA (14:00)
[2019-03-10 14:07] LABS: B-TYPE NATRIURETIC PEPTIDE 2430 pg/mL (0-450); TROPONIN I 0.04 ng/mL
--- NOTE | 2019-03-10 14:08 | RAD ---
Date of service: 03/10/2019 HISTORY: cough r/o pna r/o chf COMPARISON: 02/23/2019 TECHNIQUE: 1 view obtained. FINDINGS: LUNGS: No active pulmonary disease. PLEURA: No significant pleural effusion identified, no pneumothorax apparent. CARDIOVASCULAR: No aortic atherosclerotic calcification present. Mild cardiomegaly. No pulmonary vascular congestion. OSSEOUS STRUCTURES: No significant abnormalities. VISUALIZED UPPER ABDOMEN: Normal. OTHER FINDINGS: None. IMPRESSION: No active disease.
[2019-03-10] MEDS ORDERED: Magnesium Sulfate 1 gm in D5W 1 GM/100 ML BAG IVPB ONE (15:03)
[2019-03-10] MEDS ORDERED: Dextrose 50% SYRINGE Inj (50 ml) IV PRN (15:32)
--- NOTE | 2019-03-10 15:56 | CP.PCM.HP ---
<Atilio Shore - Last Filed: 03/10/19 16:37> History of Present Illness - History of Present Illness History of Present Illness: Atilio Shore DO PGY1. H&P for Dr Onofre ValenciaC: SOB x2 weeks 26 y/o F with PMH of HTN, DM, HLD, CHF (EF 22% in 2016) presents to the ED for SOB x2 weeks. Symptoms started with dry cough, chest tightness, nasal congestion. He visited ED at that time and was discharged on Z-Pack for possible diagnosis of bronchitis. Patient felt relief for 2 days but symptoms got worse with dyspnea on exertion bilateral leg swelling. He denies associated CP, palpitations, fever, chills. Patient reports that before this episode, he walks up to 20 blocks without SOB, sleeps on one pillow, no PND. He drinks plenty of water but follow salt restricted diet. Does not weight himself daily. Patient admits to compliance of his medications. He denies headache, dizziness, N/V/D, c hanges in bowel movement, symptoms, focal neurological symptoms. Patient does not follow up with a trial judge Echo 2016: EF22% LV function severly impaired, Global hypokinesia 12 points ROS reviewed with pertinent positives as above PMD: HTN, DM, HLD, CHF (EF 22% in 2016) PSH: denies Meds: will verify with pharmacy All: NKDA FH: father; , had pacemeker, alcoholic. 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, denies alcohol/drug use PMD: Dr [facility]: [facility] Present on Admission - Present on Admission Any Indicators Present on Admission: No Past Patient History - Infectious Disease Hx of Infectious Diseases: None - Tetanus Immunizations Tetanus Immunization: Unknown - Past Social History Smoking Status: Never Smoked - CARDIAC Hx Congestive Heart Failure: Yes Hx Hypertension: Yes - PULMONARY Hx Respiratory Disorders: No - NEUROLOGICAL Hx Neurological Disorder: No - HEENT Hx HEENT Problems: No - RENAL Hx Chronic Kidney Disease: No - ENDOCRINE/METABOLIC Hx Diabetes Mellitus Type 2: Yes - HEMATOLOGICAL/ONCOLOGICAL Hx Blood Disorders: No - INTEGUMENTARY Hx Dermatological Problems: No - MUSCULOSKELETAL/RHEUMATOLOGICAL Hx Musculoskeletal Disorders: No Hx Falls: No - GASTROINTESTINAL Hx Gastrointestinal Disorders: No - GENITOURINARY/GYNECOLOGICAL Hx Genitourinary Disorders: No - PSYCHIATRIC Hx Psychophysiologic Disorder: No Hx Substance Use: No - SURGICAL HISTORY Hx Surgeries: No - ANESTHESIA Hx Anesthesia: No Hx Anesthesia Reactions: No Hx Malignant Hyperthermia: No Meds Allergies/Adverse Reactions: Allergies Allergy/AdvReac Type Severity Reaction Status Date / Time No Known Allergies Allergy Verified 02/23/19 11:46 Physical Exam - Constitutional Appears: Well, Non-toxic, No Acute Distress - Head Exam Head Exam: ATRAUMATIC, NORMAL INSPECTION, NORMOCEPHALIC - Eye Exam Eye Exam: EOMI, Normal appearance, PERRL Pupil Exam: NORMAL ACCOMODATION, PERRL - ENT Exam ENT Exam: Mucous Membranes Moist, Normal Exam - Neck Exam Neck exam: Positive for: Normal Inspection - Respiratory Exam Respiratory Exam: Clear to Auscultation Bilateral, NORMAL BREATHING PATTERN - Cardiovascular Exam Cardiovascular Exam: REGULAR RHYTHM, +S1, +S2. absent: Gallop, JVD, RRR - GI/Abdominal Exam GI & Abdominal Exam: Normal Bowel Sounds, Soft. absent: Mass, Rigid, Tenderness Additional comments: obese - Extremities Exam Extremities exam: Positive for: full ROM, pedal edema, pedal pulses present. Negative for: calf tenderness Additional comments: 2+ b/l LE edema - Back Exam Back exam: NORMAL INSPECTION - Neurological Exam Neurological exam: Alert, CN II-XII Intact, Oriented x3, Reflexes Normal - Psychiatric Exam Psychiatric exam: Normal Affect, Normal Mood - Skin Skin Exam: Dry, Intact, Normal Color, Warm Results - Vital Signs Recent Vital Signs: Last Vital Signs Temp Pulse 80 03/10/19 14:26 Resp 18 03/10/19 14:26 BP 156/89 H 03/10/19 14:26 Pulse Ox 95 03/10/19 14:26 - Labs Result Diagrams: 03/10/19 13:30 03/10/19 13:30 Labs: Laboratory Results - last 24 hr 03/10/19 03/10/19 03/10/19 13:30 13:30 13:30 WBC 11.7 H RBC 4.53 Hgb 13.5 L Hct 41.6 L MCV 91.8 MCH 29.8 MCHC 32.5 RDW 13.8 Plt Count 253 MPV 11.7 H Neut % (Auto) 76.4 H Lymph % (Auto) 17.5 L [place] % (Auto) 4.4 Eos % (Auto) 1.4 L Baso % (Auto) 0.3 Lymph # (Auto) 2.0 [place] # (Auto) 0.5 Eos # (Auto) 0.2 Baso # (Auto) 0.03 Absolute Neuts (auto) 8.95 H pO2 66 H VBG pH 7.40 VBG pCO2 51.0 VBG HCO3 31.6 H VBG Total CO2 33.2 H VBG O2 Sat (Calc) 94.9 H VBG Base Excess 5.5 H VBG Potassium 4.0 Sodium 135.0 136 Chloride 99.0 98 Glucose 165 H Lactate 1.4 FiO2 21.0 Potassium 4.2 Carbon Dioxide 31 Anion Gap 12 BUN 20 Creatinine 0.9 Est GFR ( Amer) > 60 Est GFR (Non-Af Amer) > 60 Random Glucose 161 H Calcium 8.4 Magnesium 1.5 L Lactate Dehydrogenase 508 Total Creatine Kinase 142 Troponin I 0.04 NT-Pro-B Natriuret Pep 2430 H Venous Blood Potassium 4.0 Assessment & Plan - Assessment and Plan (Free Text) Assessment: 26 y/o F with PMH of HTN, DM, HLD, CHF (EF 22% in 2016) presents to the ED for SOB x2 weeks. Admitted to tele for CHF exacerbation Plan: CHF exacerbation: -EKG: NSR @86, with PVC, QTc 466 -CXR: mild cardiomegaly, no pulm vascular congestion -BNP 2430 on admission -f/u CT chest -started lasix 40 bid -daily weight -strict I/0 -PT/PTT -continue home med spironolactone -Trops negative x1 . continue to trend Cardiomyopathy: -Echo 2016: EF22% LV function severly impaired, Global hypokinesia -started losartan, coreg -f/u echo -cardio consulted, Dr Aguilar HTN/HLD: -hypertensive on admission -f/u lipid profile, TSH, T4 -continue home lipitor -asa DM2: -accuchecks -ISS-L -A1C -hold home metformin, glipizide h/o alcohol use: -UDS -f/u blood alcohol level -hypomagnesemia, Mg repleted PPX: -DVT: heparin sq, SCD -GI: not indicated -HHD -dietitian referral -PT eval/treat Case reviewed and plan discussed with Dr Onofre Shore, DO <Aurora Adhikari R - Last Filed: 03/10/19 18:33> Results - Vital Signs Recent Vital Signs: Last Vital Signs Temp 97.2 F L 03/10/19 17:23 Pulse 77 03/10/19 18:18 Resp 20 03/10/19 17:23 BP 133/76 03/10/19 18:18 Pulse Ox 95 03/10/19 14:26 - Labs Result Diagrams: 03/10/19 13:30 03/10/19 13:30 Labs: Laboratory Results - last 24 hr 03/10/19 03/10/19 03/10/19 13:30 13:30 13:30 WBC 11.7 H RBC 4.53 Hgb 13.5 L Hct 41.6 L MCV 91.8 MCH 29.8 MCHC 32.5 RDW 13.8 Plt Count 253 MPV 11.7 H Neut % (Auto) 76.4 H Lymph % (Auto) 17.5 L [place] % (Auto) 4.4 Eos % (Auto) 1.4 L Baso % (Auto) 0.3 Lymph # (Auto) 2.0 [place] # (Auto) 0.5 Eos # (Auto) 0.2 Baso # (Auto) 0.03 Absolute Neuts (auto) 8.95 H PT INR APTT pO2 66 H VBG pH 7.40 VBG pCO2 51.0 VBG HCO3 31.6 H VBG Total CO2 33.2 H VBG O2 Sat (Calc) 94.9 H VBG Base Excess 5.5 H VBG Potassium 4.0 Sodium 135.0 136 Chloride 99.0 98 Glucose 165 H Lactate 1.4 FiO2 21.0 Potassium 4.2 Carbon Dioxide 31 Anion Gap 12 BUN 20 Creatinine 0.9 Est GFR ( Amer) > 60 Est GFR (Non-Af Amer) > 60 Random Glucose 161 H Calcium 8.4 Magnesium 1.5 L Lactate Dehydrogenase 508 Total Creatine Kinase 142 Troponin I 0.04 NT-Pro-B Natriuret Pep 2430 H Triglycerides Cholesterol LDL Cholesterol Direct HDL Cholesterol Free T4 TSH 3rd Generation Venous Blood Potassium 4.0 Urine Color Urine Appearance Urine pH Ur Specific [place] Urine Protein Urine Glucose (UA) Urine Ketones Urine Blood Urine Nitrate Urine Bilirubin Urine Urobilinogen Ur Leukocyte Esterase Urine Opiates Screen Urine Methadone Screen Ur Barbiturates Screen Ur Phencyclidine Scrn Ur Amphetamines Screen U Benzodiazepines Scrn U Oth Cocaine Metabols U Cannabinoids Screen Alcohol, Quantitative 03/10/19 03/10/19 03/10/19 14:00 14:00 14:00 WBC RBC Hgb Hct MCV MCH MCHC RDW Plt Count MPV Neut % (Auto) Lymph % (Auto) [place] % (Auto) Eos % (Auto) Baso % (Auto) Lymph # (Auto) [place] # (Auto) Eos # (Auto) Baso # (Auto) Absolute Neuts (auto) PT INR APTT pO2 VBG pH VBG pCO2 VBG HCO3 VBG Total CO2 VBG O2 Sat (Calc) VBG Base Excess VBG Potassium Sodium Chloride Glucose Lactate FiO2 Potassium Carbon Dioxide Anion Gap BUN Creatinine Est GFR ( Amer) Est GFR (Non-Af Amer) Random Glucose Calcium Magnesium Lactate Dehydrogenase Total Creatine Kinase Troponin I NT-Pro-B Natriuret Pep Triglycerides 211 H Cholesterol 139 LDL Cholesterol Direct 103 HDL Cholesterol 23 L Free T4 1.19 TSH 3rd Generation 3.00 Venous Blood Potassium Urine Color Urine Appearance Urine pH Ur Specific [place] Urine Protein Urine Glucose (UA) Urine Ketones Urine Blood Urine Nitrate Urine Bilirubin Urine Urobilinogen Ur Leukocyte Esterase Urine Opiates Screen Urine Methadone Screen Ur Barbiturates Screen Ur Phencyclidine Scrn Ur Amphetamines Screen U Benzodiazepines Scrn U Oth Cocaine Metabols U Cannabinoids Screen Alcohol, Quantitative < 10 03/10/19 03/10/19 03/10/19 14:00 14:00 17:00 WBC RBC Hgb Hct MCV MCH MCHC RDW Plt Count MPV Neut % (Auto) Lymph % (Auto) [place] % (Auto) Eos % (Auto) Baso % (Auto) Lymph # (Auto) [place] # (Auto) Eos # (Auto) Baso # (Auto) Absolute Neuts (auto) PT 12.6 H INR 1.14 APTT 30.1 pO2 VBG pH VBG pCO2 VBG HCO3 VBG Total CO2 VBG O2 Sat (Calc) VBG Base Excess VBG Potassium Sodium Chloride Glucose Lactate FiO2 Potassium Carbon Dioxide Anion Gap BUN Creatinine Est GFR ( Amer) Est GFR (Non-Af Amer) Random Glucose Calcium Magnesium Lactate Dehydrogenase Total Creatine Kinase Troponin I NT-Pro-B Natriuret Pep Triglycerides Cholesterol LDL Cholesterol Direct HDL Cholesterol Free T4 TSH 3rd Generation Venous Blood Potassium Urine Color Yellow Urine Appearance Clear Urine pH 6.0 Ur Specific [place] 1.010 Urine Protein Negative Urine Glucose (UA) Negative Urine Ketones Negative Urine Blood Negative Urine Nitrate Negative Urine Bilirubin Negative Urine Urobilinogen 0.2 Ur Leukocyte Esterase Negative Urine Opiates Screen Negative Urine Methadone Screen Negative Ur Barbiturates Screen Negative Ur Phencyclidine Scrn Negative Ur Amphetamines Screen Negative U Benzodiazepines Scrn Negative U Oth Cocaine Metabols Positive H U Cannabinoids Screen Negative Alcohol, Quantitative Attending/Attestation - Attestation I have personally seen and examined this patient.: Yes I have fully participated in the care of the patient.: Yes I have reviewed all pertinent clinical information: Yes Notes (Text): Patient seen and examined by me with resident at approximately 2:55PM on 03/10/19 in the emergency room. Case including HPI, physical exam, and assessment and plan discussed with resident. Agree with above with following additions/corrections. Patient is a 53 year old male with past medical history significant for hypertension, noninsulin dependent DM2, hyperlipidemia, and chronic systolic CHF (last EF in 2016 was 22%) that presented to the emergency room with progressively worse shortness of breath over the past 2 weeks. Patient states that he had shortness of breath and cough that started approximately 2 weeks ago. Patient states that he came to the emergency room at that time and was told he had bronchitis and was treated with a Z-pack. Patient states he felt good for about 2 days after the z-pack. He then went back to work and started to have progressive shortness of breath. Patient states he tried cough drops and Nyquil at home with little relief. Patient states cough has improved a little. Patient states he is mostly short of breath with exertion. He states that today, he felt like he could not ambulate secondary to shortness of breath when he went to work. He states he had a little chest pain because he felt like he could not take in a deep breath. Patient states he has not been lying flat when sleeping secondary to his cough. Patient states cough is productive with "green" sputum. Patient feels that he has had weight gain over the past 6 months. Patient states he also normally drinks a lot of fluids at home. Patient denies any nausea, vomiting, or abdominal pain. Patient states he had some lightheadedness. No headaches or dizziness. No fevers or chills. No dysuria. No diarrhea or constipation. 12 point review of systems reviewed by me. Please see above HPI, all other systems are negative. Physical exam: General: Awake and alert sitting up in bed in no acute distress HEENT: Normocephalic, atraumatic. Extraocular muscles intact. Pupils equal and reactive, no scleral icterus. Oropharynx is pink and moist. Neck is supple. Cardiovascular: Normal rhythm. Normal S1 and S2. No murmurs, rubs, or gallops appreciated Pulmonary: Normal respiratory effort. Coarse breath sounds with coughing. No rales or wheezing appreciated. Gastrointestinal: Soft. Nondistended. Nontender. Positive bowel sounds all 4 quadrants. No guarding. Positive obese abdomen. Musculoskeletal: Moves all extremities. No calf tenderness. Mild bilateral lower extremity pitting edema. Central nervous system: AAO X 3. CN 2-12 grossly intact. Dermatologic: Skin warm and dry. Assessment and plan: Patient is a 53 year old male with past medical history significant for hypertension, noninsulin dependent DM2, hyperlipidemia, and chronic systolic CHF (last EF in 2016 was 22%) that presented to the emergency room with progressively worse shortness of breath over the past 2 weeks. 1. Shortness of breath. Likely secondary to Acute on Chronic Systolic CHF exacerbation. Per patient, he has never followed with a trial judge. 2D echo in 2016 showed EF of 22%. 2D echo ordered. [facility] consulted. Recent treatment with Z-Pack. Chest CT ordered to rule out other pathologies. Placed on IV lasix. Placed on ASA. Continue home aldactone. Placed on lipitor. Monitor ins and outs. Monitor daily weights. BNP 2430. Monitor on tele. 2. DM2. Follow up HgbA1C. Placed on insulin sliding scale. Monitor accuchecks. 3. Hypomagnesemia. Magnesium repleted. Follow up repeat labs in AM. 4. Hypertension. Continue Lasix. Patient not on any other blood pressure medications at home. Monitor and add medications if needed. 5. Hyperlipidemia. Placed on Lipitor. Patient takes Zocor at home. 6. History of alcohol abuse. Patient states he only drinks once a week. Follow up UDS and alcohol levels. 7. DVT prophylaxis. Heparin. Case was discussed in detail with the patient regarding current diagnosis, study results, and treatment plan. All questions answered.
[2019-03-10] MEDS ORDERED: Pneumococcal 23-Valent Vaccine IM ONE (16:56)
[2019-03-10 17:11] LABS: URINE BILIRUBIN NEGATIVE (NEGATIVE); URINE BLOOD NEGATIVE (NEGATIVE); URINE GLUCOSE (UA) NEGATIVE (NEGATIVE); URINE LEUKOCYTE ESTERASE NEGATIVE Leu/uL (NEGATIVE); URINE PROTEIN NEGATIVE mg/dL (<30 mg/dL); URINE UROBILINOGEN 0.2 E.U./dL (<1 E.U./dL)
[2019-03-10 17:16] LABS: URINE APPEARANCE CLEAR (CLEAR); URINE COLOR YELLOW (YELLOW)
[2019-03-10 17:18] LABS: INR 1.14; PARTIAL THROMBOPLASTIN TIME 30.1 Seconds (26.9-38.3); PROTHROMBIN TIME 12.6 SECONDS (9.4-12.5)
[2019-03-10 17:20] LABS: HDL CHOLESTEROL 23 mg/dL (29-60)
[2019-03-10 17:31] LABS: LDL CHOLESTEROL 103 mg/dL (0-129)
[2019-03-10] MEDS: Insulin Reg-LOW-Coverage SC SCH ×2 (17:31→21:46)
[2019-03-10 17:39] LABS: BARBITURATES, UR NEGATIVE (NEGATIVE); BENZODIAZEPINES, UR NEGATIVE (NEGATIVE); OPIATES, UR NEGATIVE (NEGATIVE); PHENCYCLIDINE, UR NEGATIVE (NEGATIVE)
[2019-03-10 17:49] LABS: FREE T4 1.19 ng/dL (0.78-2.19)
--- NOTE | 2019-03-10 18:42 | CARD ---
APPROVED REPORT Date of service: 03/10/2019 EKG Measurement Heart [id number] <Conclusion> Normal sinus rhythm Prolonged QT Abnormal ECG
--- NOTE | 2019-03-10 18:44 | CARD ---
APPROVED REPORT Date of service: 03/10/2019 EKG Measurement Heart [id number] <Conclusion> Sinus rhythm with occasional premature ventricular complexes Nonspecific T wave abnormality Prolonged QT Abnormal ECG
[2019-03-11] MEDS ORDERED: Benzocaine/Menthol (Cepacol) Lozenge MT ONE (05:59)
[2019-03-11 06:46] LABS: BASO # 0.02 K/mm3 (0.0-2.0); BASO % 0.2 % (0.0-3.0); EOS # 0.2 (0.0-0.7); EOS % 1.7 % (1.5-5.0); HEMOGLOBIN 13.9 g/dL (14.0-18.0); LYMPH # 2.2 (1.2-3.4); LYMPH % 21.5 % (22.0-35.0); MEAN CELL VOLUME 93.5 fl (80.0-105.0); MEAN CORPUSCULAR HEMOGLOBIN 29.3 pg (25.0-35.0); MEAN CORPUSCULAR HGB CONC 31.3 g/dl (31.0-37.0); MEAN PLATELET VOLUME 12.1 fl (7.0-11.0); MONO # 0.5 (0.1-0.6); MONO % 5.1 % (1.0-6.0); RBC 4.75 10^6/uL (3.5-6.1); WHITE BLOOD COUNT 10.4 10^3/uL (4.5-11.0)
[2019-03-11 07:06] LABS: ALB/GLOB RATIO 1.1 (1.1-1.8); ALBUMIN 3.4 g/dL (3.0-4.8); ALT/SGPT 33 U/L (7-56); AST/SGOT 26 U/L (17-59); BLOOD UREA NITROGEN 18 mg/dL (7-21); CALCIUM 8.7 mg/dL (8.4-10.5); GFR NON-AFRICAN AMERICAN > 60
[2019-03-11] MEDS: guaiFENesin DM 200 mg-20 mg/10 ml UD PO PRN (07:50)
[2019-03-11] MEDS: Insulin Reg-LOW-Coverage SC SCH ×4 (08:02→22:00)
--- NOTE | 2019-03-11 10:43 | CT ---
Date of service: 03/10/2019 PROCEDURE: CT Chest without contrast HISTORY: Evaluate for infiltration/effusion COMPARISON: None available. TECHNIQUE: Contiguous axial images were obtained through the chest without intravenous contrast enhancement. Sagittal and coronal reconstructions were performed. Radiation dose: Total exam DLP = 1052.23 mGy-cm. This CT exam was performed using one or more of the following dose reduction techniques: Automated exposure control, adjustment of the mA and/or kV according to patient size, and/or use of iterative reconstruction technique. FINDINGS: LUNGS: Clear lungs. Visualized airway clear MEDIASTINUM: Unremarkable thoracic aorta. No aneurysm. Normal sized heart. Main pulmonary artery unremarkable. No vascular congestion. Mildly enlarged lymph nodes. No aortic atherosclerotic calcification. PLEURA: No pleural fluid. No pneumothorax. BONES: There is scoliosis convex to the right UPPER ABDOMEN: Grossly unremarkable. OTHER FINDINGS: The report concurs with the preliminary [facility] report IMPRESSION: Unremarkable non-contrast enhanced CT of the chest.
--- NOTE | 2019-03-11 11:19 | CP.PCM.PN ---
<Atilio Shore - Last Filed: 03/11/19 11:16> Subjective - Date & Time of Evaluation Date of Evaluation: 03/11/19 Time of Evaluation: 06:10 - Subjective Subjective: Atilio Shore DO PGY1 Hospitalist Progress Note for Dr Adhikari Patient seen and examined at bedside. Patient reports improvement in SOB, still having dry cough overnight. Urine output 2126 cc. Denies CP, palpitations, fever, chills. Objective - Vital Signs/Intake and Output Vital Signs (last 24 hours): Temp Pulse Resp BP Pulse Ox 97.3 F L 62 20 120/77 95 03/11/19 06:00 03/11/19 10:34 03/11/19 06:00 03/11/19 10:34 03/11/19 06:00 Intake and Output: 03/11/19 03/11/19 06:59 18:59 Intake Total 1200 Output Total 1726 Balance -526 - Medications Medications: Current Medications Aspirin (Aspirin Chewable) 81 mg PO DAILY [facility] Last Admin: 03/11/19 10:34 Dose: 81 mg Atorvastatin Calcium (Lipitor) 40 mg PO DIN [facility] Last Admin: 03/10/19 18:18 Dose: 40 mg Carvedilol (Coreg) 3.125 mg PO BID [facility] Dextrose (Dextrose 50% Inj) 0 ml IV STAT PRN; Protocol PRN Reason: Hypoglycemia Protocol Furosemide (Lasix) 40 mg IVP Q12 [facility] Last Admin: 03/11/19 10:34 Dose: 40 mg Guaifenesin/Dextromethorphan (Robitussin Dm) 10 ml PO Q4H PRN PRN Reason: Cough Last Admin: 03/11/19 07:50 Dose: 10 ml Heparin Sodium (Porcine) (Heparin) 5,000 units SC Q8 [facility]; Protocol Last Admin: 03/11/19 05:55 Dose: 5,000 units Dextrose (Dextrose 5% In Water 1000 Ml) 1,000 mls @ 0 mls/hr IV .Q0M PRN; Mika col PRN Reason: Hypoglycemia Protocol Insulin Human Regular (Humulin R Low) 0 units SC ACHS [facility]; Protocol Last Admin: 03/11/19 08:02 Dose: 1 units Losartan Potassium (Cozaar) 25 mg PO DAILY [facility] Last Admin: 03/11/19 10:34 Dose: 25 mg Spironolactone (Aldactone) 25 mg PO DAILY [facility] Last Admin: 03/11/19 10:34 Dose: 25 mg - Labs Labs: 03/11/19 06:20 03/11/19 06:20 PT 12.6 SECONDS (9.4-12.5) H 03/10/19 14:00 INR 1.14 03/10/19 14:00 APTT 30.1 Seconds (26.9-38.3) 03/10/19 14:00 - Constitutional Appears: Well, Non-toxic, No Acute Distress - Head Exam Head Exam: ATRAUMATIC, NORMOCEPHALIC - Eye Exam Eye Exam: EOMI, Normal appearance, PERRL Pupil Exam: NORMAL ACCOMODATION, PERRL - ENT Exam ENT Exam: Mucous Membranes Moist, Normal Exam - Neck Exam Neck Exam: Full ROM - Respiratory Exam Respiratory Exam: Clear to Ausculation Bilateral, NORMAL BREATHING PATTERN. absent: Rhonchi, Wheezes - Cardiovascular Exam Cardiovascular Exam: REGULAR RHYTHM, +S1, +S2 - GI/Abdominal Exam GI & Abdominal Exam: Soft, Normal Bowel Sounds. absent: Tenderness Additional comments: obese - Extremities Exam Extremities Exam: Normal Capillary Refill, Pedal Edema - Back Exam Back Exam: NORMAL INSPECTION - Neurological Exam Neurological Exam: Alert, Awake, CN II-XII Intact, Oriented x3 - Psychiatric Exam Psychiatric exam: Normal Affect, Normal Mood - Skin Skin Exam: Dry, Intact, Normal Color, Warm Assessment and Plan - Assessment and Plan (Free Text) Assessment: 53 y/o male with PMH of HTN, DM, HLD, CHF with low EF admitted to [facility] for CHF exacerbation Plan: CHF exacerbation: -EKG: NSR @86, with PVC, QTc 466 -CXR: mild cardiomegaly, no pulm vascular congestion -Trops negative x3 -BNP 2430 on admission -CT chest 03/10: unremarkable -continue lasix 40 bid -daily weight -strict I/0. -UO 2125 last night -PT/INR 12.6/1.14 -continue home med spironolactone Cardiomyopathy: -f/u echo -Echo 2015: EF22% LV function severly impaired, Global hypokinesia -continue losartan -coreg held (UDS positive for cocaine) -cardio consulted, Dr Aguilar HTN/HLD: -lipid profile: TG 211, HDL 23 -TSH, T4 wnl -continue home lipitor -asa DM2: -A1C 9.5 -accuchecks -ISS-L -hold home metformin, glipizide h/o alcohol use: -UDS: positive for cocaine -UA negative -hypomagnesemia, Mg repleted PPX: -DVT: heparin sq, SCD -GI: not indicated -HHD -dietitian referral -PT eval/treat Case reviewed and plan discussed with Dr Onofre Shore, DO <Aurora Adhikari R - Last Filed: 03/12/19 13:06> Objective - Vital Signs/Intake and Output Vital Signs (last 24 hours): Temp Pulse Resp BP Pulse Ox 97.8 F 84 20 123/82 93 L 03/12/19 11:42 03/12/19 11:42 03/12/19 11:42 03/12/19 11:42 03/12/19 00:01 Intake and Output: 03/12/19 03/12/19 06:59 18:59 Intake Total 1620 Output Total 800 Balance 820 - Medications Medications: Current Medications Aspirin (Aspirin Chewable) 81 mg PO DAILY [facility] Last Admin: 03/12/19 10:00 Dose: 81 mg Atorvastatin Calcium (Lipitor) 40 mg PO DIN [facility] Last Admin: 03/11/19 18:22 Dose: 40 mg Dextrose (Dextrose 50% Inj) 0 ml IV STAT PRN; Protocol PRN Reason: Hypoglycemia Protocol Furosemide (Lasix) 60 mg IVP Q12 [facility] Last Admin: 03/12/19 10:02 Dose: 60 mg Guaifenesin/Dextromethorphan (Robitussin Dm) 10 ml PO Q4H PRN PRN Reason: Cough Last Admin: 03/11/19 07:50 Dose: 10 ml Heparin Sodium (Porcine) (Heparin) 5,000 units SC Q8 [facility]; Protocol Last Admin: 03/12/19 05:06 Dose: 5,000 units Dextrose (Dextrose 5% In Water 1000 Ml) 1,000 mls @ 0 mls/hr IV .Q0M PRN; Protocol PRN Reason: Hypoglycemia Protocol Insulin Human Regular (Humulin R Low) 0 units SC ACHS [facility]; Protocol Last Admin: 03/12/19 12:17 Dose: 1 units Potassium Chloride (K-Dur 20 Meq Er Tab) 20 meq PO BRK [facility] Last Admin: 03/12/19 08:23 Dose: 20 meq Sacubitril/Valsartan (Entresto 24 Mg-26 Mg Tablet) 1 each PO BID [facility] Spironolactone (Aldactone) 25 mg PO DAILY [facility] Last Admin: 03/12/19 10:01 Dose: 25 mg Thiamine HCl (Vitamin B1 Tab) 100 mg PO DAILY [facility] Last Admin: 03/12/19 10:01 Dose: 100 mg - Labs Labs: 03/12/19 06:00 03/12/19 06:00 PT 12.6 SECONDS (9.4-12.5) H 03/10/19 14:00 INR 1.14 03/10/19 14:00 APTT 30.1 Seconds (26.9-38.3) 03/10/19 14:00 Attending/Attestation - Attestation I have personally seen and examined this patient.: Yes I have fully participated in the care of the patient.: Yes I have reviewed all pertinent clinical information, including history, physical exam and plan: Yes Notes (Text): Patient seen and examined by me with resident at approximately 11:45AM on 03/11/19. Case including HPI, physical exam, and assessment and plan discussed with resident. Agree with above with following additions/corrections. Patient is a 53 year old male with past medical history significant for hypertension, noninsulin dependent DM2, hyperlipidemia, and chronic systolic CHF (last EF in 2016 was 22%) that presented to the emergency room with progressively worse shortness of breath over the past 2 weeks. Patient states that he is feeling a little better today. Feels shortness of breath is a little improved. Also feels cough is a little improved. Patient toda y does admit to using cocaine but states it was "only last weekend." Patient denies chest pain or palpitations. No nausea, vomiting, or abdominal pain. No headaches or dizziness. No fevers or chills. No dysuria. Patient is having bowel movements. Physical exam: General: Awake and alert sitting up in bed in no acute distress HEENT: Normocephalic, atraumatic. Extraocular muscles intact. Pupils equal and reactive, no scleral icterus. Oropharynx is pink and moist. Neck is supple. Cardiovascular: Normal rhythm. Normal S1 and S2. No murmurs, rubs, or gallops appreciated Pulmonary: Normal respiratory effort. Decreased breath sound. No rhonchi, rales, or wheezing appreciated. Gastrointestinal: Soft. Nondistended. Nontender. Positive bowel sounds all 4 quadrants. No guarding. Positive obese abdomen. Musculoskeletal: Moves all extremities. No calf tenderness. Mild bilateral lower extremity pitting edema. Central nervous system: AAO X 3. CN 2-12 grossly intact. Dermatologic: Skin warm and dry. Assessment and plan: Patient is a 53 year old male with past medical history significant for hypertension, noninsulin dependent DM2, hyperlipidemia, and chronic systolic CHF (last EF in 2016 was 22%) that presented to the emergency room with progressively worse shortness of breath over the past 2 weeks. 1. Shortness of breath. Likely secondary to Acute on Chronic Systolic CHF exacerbation. 2D echo in 2016 showed EF of 22%. 2D echo done here, results pending. Security Incident Response Engineer recommendations appreciated. IV lasix increased to 60mg IV q12h. Continue ASA and aldactone. Started on Cozaar. Beta tata held secondary to UDS being positive for cocaine and bradycardia overnight. Strict I's and O's. Continue to monitor daily weights. Chest CT per radiologist showed unremarkable non-contrast enhanced CT of the chest. 2. DM2. HgbA1C 9.5. Continue insulin sliding scale. Continue to monitor accuch ecks. Diet and exercise discussed with patient. Diabetic education. 3. Hypomagnesemia. Resolved. Continue to monitor. 4. Hypertension. Continue Lasix. Started on Cozaar. Beta tata held secondary to UDS being positive for cocaine. 5. Hyperlipidemia. Continue lipitor. 6. History of alcohol abuse. Patient states he only drinks once a week. Alcohol level <10. Patient strongly advised on complete alcohol cessation. 7. Cocaine use. Patient counseled at length on cessation. 8. DVT prophylaxis. Heparin. Case was discussed in detail with the patient regarding current diagnosis, study results, and treatment plan. All questions answered.
--- NOTE | 2019-03-11 11:40 | CARD ---
APPROVED REPORT Date of service: 03/11/2019 EXAM: Two-dimensional and M-mode echocardiogram with Doppler and color Doppler. INDICATION Congestive Heart Failure 2D DIMENSIONS Left Atrium (2D)4.8 (1.6-4.0cm)IVSd1.4 (0.7-1.1cm) LVDd6.1 (3.9-5.9cm)PWd1.5 (0.7-1.1cm) LVDs5.6 (2.5-4.0cm)FS (%) 8.8 % LVEF (%)19.1 (>50%) M-Mode DIMENSIONS Aortic Root3.00 (2.2-3.7cm)Aortic Cusp Exc.1.20 (1.5-2.0cm) Aortic Valve AoV Peak Inbjpvkt45.7cm/Kely Peak GR.4mmHg Mitral Valve E/A ratio0.0 TDI E/Lateral E'0.0E/Medial E'0.0 Tricuspid Valve TR Peak [id number]/sRAP [id number] Peak Gr.20mmHg [id number] LEFT VENTRICLE The Left Ventricle is mildly dilated. There is normal left ventricular wall thickness. The systolic function is severely impaired. There is global hypokinesis of the left ventricle. Transmitral Doppler flow pattern is abnormal. No left ventricle thrombus noted on this study. RIGHT VENTRICLE The right ventricle is mildly dilated and severly hypokinetic ATRIA The left atrium is mildly dilated. The right atrium is mildly dilated. AORTIC VALVE The aortic valve is normal in structure. No aortic regurgitation is present. There is no aortic valvular stenosis. MITRAL VALVE The mitral valve is normal in structure. There is no mitral valve regurgitation noted. There is no mitral valve stenosis. TRICUSPID VALVE The tricuspid valve is normal in structure. There is moderate tricuspid regurgitation. PULMONIC VALVE The pulmonary valve is normal in structure. There is no pulmonic valvular regurgitation. GREAT VESSELS The aortic root is normal in size. <Conclusion> The Left Ventricle is mildly dilated. The systolic function is severely impaired. There is global hypokinesis of the left ventricle. The right ventricle is mildly dilated and severly hypokinetic There is moderate tricuspid regurgitation.
[2019-03-11] MEDS: Potassium Chloride 20 mEq ER Tab PO SCH (12:51)
--- NOTE | 2019-03-11 23:16 | CON ---
DATE: 03/11/2019 CARDIOLOGY CONSULT REASON FOR CONSULTATION: Congestive heart failure. HISTORY OF PRESENT ILLNESS: The patent is a 53-year-old male, who is EtOH abuser and a cocaine abuser, has a history of non-ischemic cardiomyopathy, presented because of shortness of breath and dry cough. The patient also reported exogenous chest pain. The patient was recently evaluated for upper respiratory tract infection and was placed on Z-LUIS F. SOCIAL HISTORY: The patient is an EtOH abuser and cocaine abuser. MEDICATIONS: Aldactone 25 mg once a day, aspirin 81 mg once a day, Coreg 3.125 mg twice a day, Cozaar 25 mg once a day, heparin 5000 units every 8 hours, Lasix 40 mg intravenously every 12 hours, Lipitor 40 mg once a day, Robitussin 10 mL p.o. every 4 hours p.r.n. PHYSICAL EXAMINATION: GENERAL: The patient is a moderately obese male, who weighs 360 pounds and his height is 6 feet 4 inches. He does not appear to be in any respiratory distress. VITAL SIGNS: Blood pressure 120/77, heart rate 62, temperature 97.3, and respirations 20. HEENT: Normocephalic. CHEST: Minimal bilateral rhonchi. HEART: S1 and S2 regular and distant. ABDOMEN: Soft. EXTREMITIES: Trace pitting edema. LABORATORY DATA: Today's hemoglobin and hematocrit are 13.9 and 44.4, white count and platelet count are within normal limits. Today's SMA-7: Sodium 137, potassium 4.5, chloride 95, CO2 of 34, glucose 194, BUN 18, and creatinine 0.9. Three sets of troponins were 0.04. ProBNP is 2430. Today's echocardiographic study revealed right ventricular failure, ejection fraction was measured at 19%. EKG revealed normal sinus rhythm with prolonged QT interval, heart rate 76. Urine drug screen is positive for cocaine. Cardiac catheterization report in 04/2015 revealed normal coronaries and an ejection fraction of 35%. ASSESSMENT: 1. Non-ischemic cardiomyopathy. 2. Cocaine abuse. 3. EtOH abuse. RECOMMENDATIONS: Continue Aldactone 25 mg once a day, aspirin 81 mg once a day, Cozaar 25 mg once a day, subcutaneous heparin 5000 units every 8 hours, Lasix will be increased to 60 mg intravenously twice a day. Continue Lipitor 40 mg once a day. Hold Coreg in view of recent cocaine abuse. The patient is not a suitable candidate for either long-term anticoagulation or ICD placement. Case was discussed with the medical team. Raphael Arciniega MD
[2019-03-12 07:23] LABS: ALB/GLOB RATIO 1.2 (1.1-1.8); ALBUMIN 3.6 g/dL (3.0-4.8); ALT/SGPT 29 U/L (7-56); AST/SGOT 24 U/L (17-59); BLOOD UREA NITROGEN 24 mg/dL (7-21); CALCIUM 9.1 mg/dL (8.4-10.5); GFR NON-AFRICAN AMERICAN > 60
[2019-03-12 07:37] LABS: BASO # 0.03 K/mm3 (0.0-2.0); BASO % 0.3 % (0.0-3.0); EOS # 0.1 (0.0-0.7); EOS % 1.5 % (1.5-5.0); HEMOGLOBIN 14.5 g/dL (14.0-18.0); LYMPH # 1.8 (1.2-3.4); LYMPH % 18.6 % (22.0-35.0); MEAN CELL VOLUME 91.9 fl (80.0-105.0); MEAN CORPUSCULAR HEMOGLOBIN 29.5 pg (25.0-35.0); MEAN CORPUSCULAR HGB CONC 32.1 g/dl (31.0-37.0); MONO # 0.5 (0.1-0.6); MONO % 5.2 % (1.0-6.0); RBC 4.92 10^6/uL (3.5-6.1); RED CELL DISTRIBUTION WIDTH 13.9 % (11.5-14.5); WHITE BLOOD COUNT 9.4 10^3/uL (4.5-11.0)
[2019-03-12] MEDS: Insulin Reg-LOW-Coverage SC SCH ×4 (08:23→21:41)
[2019-03-12] MEDS: Potassium Chloride 20 mEq ER Tab PO SCH (08:23)
--- NOTE | 2019-03-12 14:03 | CP.PCM.PN ---
<Gerry Adhikari - Last Filed: 03/12/19 13:52> Subjective - Date & Time of Evaluation Date of Evaluation: 03/12/19 Time of Evaluation: 09:00 - Subjective Subjective: Gerry Adhikari DO PGy1 - Internal Medicine Customer Sales Consultant - Medicine Progress Note Patient was seen and examined this morning at bedside NO acute events overnight; no chest pain, sob, or palpitations voiced at bedside. Tolerating diet well, no N/v/d/c. Counseled patient on need to stop alcohol and drugs; educated patient on prognosis regarding continuation of EtOH and Cocaine; Patient reports that he will turn his life around. Objective - Vital Signs/Intake and Output Vital Signs (last 24 hours): Temp Pulse Resp BP Pulse Ox 97.8 F 84 20 123/82 93 L 03/12/19 11:42 03/12/19 11:42 03/12/19 11:42 03/12/19 11:42 03/12/19 00:01 Intake and Output: 03/12/19 03/12/19 06:59 18:59 Intake Total 1620 Output Total 800 Balance 820 - Medications Medications: Current Medications Aspirin (Aspirin Chewable) 81 mg PO DAILY [facility] Last Admin: 03/12/19 10:00 Dose: 81 mg Atorvastatin Calcium (Lipitor) 40 mg PO DIN [facility] Last Admin: 03/11/19 18:22 Dose: 40 mg Dextrose (Dextrose 50% Inj) 0 ml IV STAT PRN; Protocol PRN Reason: Hypoglycemia Protocol Folic Acid (Folic Acid) 1 mg PO DAILY [facility] Furosemide (Lasix) 60 mg IVP Q12 [facility] Last Admin: 03/12/19 10:02 Dose: 60 mg Guaifenesin/Dextromethorphan (Robitussin Dm) 10 ml PO Q4H PRN PRN Reason: Cough Last Admin: 03/11/19 07:50 Dose: 10 ml Heparin Sodium (Porcine) (Heparin) 5,000 units SC Q8 [facility]; Protocol Last Admin: 03/12/19 05:06 Dose: 5,000 units Dextrose (Dextrose 5% In Water 1000 Ml) 1,000 mls @ 0 mls/hr IV .Q0M PRN; Protocol PRN Reason: Hypoglycemia Protocol Insulin Human Regular (Humulin R Low) 0 units SC ACHS [facility]; Protocol Last Admin: 03/12/19 12:17 Dose: 1 units Multivitamins (Thera Tab) 1 tab PO 0800 [facility] Potassium Chloride (K-Dur 20 Meq Er Tab) 20 meq PO BRK [facility] Last Admin: 03/12/19 08:23 Dose: 20 meq Sacubitril/Valsartan (Entresto 24 Mg-26 Mg Tablet) 1 each PO BID [facility] Spironolactone (Aldactone) 25 mg PO DAILY [facility] Last Admin: 03/12/19 10:01 Dose: 25 mg Thiamine HCl (Vitamin B1 Tab) 100 mg PO DAILY [facility] Last Admin: 03/12/19 10:01 Dose: 100 mg - Labs Labs: 03/12/19 06:00 03/12/19 06:00 PT 12.6 SECONDS (9.4-12.5) H 03/10/19 14:00 INR 1.14 03/10/19 14:00 APTT 30.1 Seconds (26.9-38.3) 03/10/19 14:00 - Constitutional Appears: Well, Non-toxic, No Acute Distress - Eye Exam Eye Exam: EOMI, PERRL - Respiratory Exam Respiratory Exam: Clear to Ausculation Bilateral, NORMAL BREATHING PATTERN. absent: Rales, Rhonchi, Wheezes - Cardiovascular Exam Cardiovascular Exam: RRR. absent: Murmur - GI/Abdominal Exam GI & Abdominal Exam: Soft. absent: Tenderness Additional comments: Obese - Extremities Exam Additional comments: LE EDEMA bilaterally 2+ Distal pulses BL Left foot w/ ulceration at ball of foot Left foot w/ 2nd toe ulceration - Neurological Exam Neurological Exam: Alert, Awake, Oriented x3 - Psychiatric Exam Psychiatric exam: Normal Affect, Normal Mood - Skin Skin Exam: Dry, Intact, Warm Assessment and Plan - Assessment and Plan (Free Text) Assessment: 53M PMH HTN, DM, HLD, CHF (EF 19% on 02/2019), presenting w/ dry cough, chest tightness on 03/10 admitted for CHF exacerbation: Plan: CHF Exacerbation - HFrEF BNP elevated on admission elevated ECHO 03/11 : EF 19%, Global Hypokinesis C/w Lasix 60 Q12 + KChlor 20 BRK C/w Aldactone 25 QD DC Cozaar today Will start Entresto 24-26 1 tab BID on 03/12 Holding Coreg at this time given cocaine use Encourage Drug + EtOH Cessation Not candidate for AICD given drug abuse/ EtOH abuse Symptoms improving at this time Cardiology following, appreciate reccs HLD: Lipitor 40 Daily HTN: Entresto starting 03/13 ASA DM2: A1C 9.5 ISS Low ACHS Fingersticks ACHS Hold home metformin, glipizide H/o Cocaine + EtOH Abuse Thiamine, Folic acid, MultiVit PPX: -DVT: heparin sq, SCD -GI: not indicated -HHD -Dietitian referral -PT eval/treat Patient was seen, examined, and discussed w/ attending Dr. Aurora Adhikari DO PGY1 Internal Medicine Customer Sales Consultant <Aurora Adhikari R - Last Filed: 03/12/19 14:55> Objective - Vital Signs/Intake and Output Vital Signs (last 24 hours): Temp Pulse Resp BP Pulse Ox 97.8 F 84 20 123/82 93 L 03/12/19 11:42 03/12/19 11:42 03/12/19 11:42 03/12/19 11:42 03/12/19 00:01 Intake and Output: 03/12/19 03/12/19 06:59 18:59 Intake Total 1620 Output Total 800 Balance 820 - Medications Medications: Current Medications Aspirin (Aspirin Chewable) 81 mg PO DAILY [facility] Last Admin: 03/12/19 10:00 Dose: 81 mg Atorvastatin Calcium (Lipitor) 40 mg PO DIN [facility] Last Admin: 03/11/19 18:22 Dose: 40 mg Dextrose (Dextrose 50% Inj) 0 ml IV STAT PRN; Protocol PRN Reason: Hypoglycemia Protocol Folic Acid (Folic Acid) 1 mg PO DAILY [facility] Furosemide (Lasix) 60 mg IVP Q12 [facility] Last Admin: 03/12/19 10:02 Dose: 60 mg Guaifenesin/Dextromethorphan (Robitussin Dm) 10 ml PO Q4H PRN PRN Reason: Cough Last Admin: 03/11/19 07:50 Dose: 10 ml Heparin Sodium (Porcine) (Heparin) 5,000 units SC Q8 [facility]; Protocol Last Admin: 03/12/19 14:06 Dose: 5,000 units Dextrose (Dextrose 5% In Water 1000 Ml) 1,000 mls @ 0 mls/hr IV .Q0M PRN; Protocol PRN Reason: Hypoglycemia Protocol Insulin Human Regular (Humulin R Low) 0 units SC ACHS [facility]; Protocol Last Admin: 03/12/19 12:17 Dose: 1 units Multivitamins (Thera Tab) 1 tab PO 0800 [facility] Potassium Chloride (K-Dur 20 Meq Er Tab) 20 meq PO BRK [facility] Last Admin: 03/12/19 08:23 Dose: 20 meq Sacubitril/Valsartan (Entresto 24 Mg-26 Mg Tablet) 1 each PO BID [facility] Spironolactone (Aldactone) 25 mg PO DAILY [facility] Last Admin: 03/12/19 10:01 Dose: 25 mg Thiamine HCl (Vitamin B1 Tab) 100 mg PO DAILY [facility] Last Admin: 03/12/19 10:01 Dose: 100 mg - Labs Labs: 03/12/19 06:00 03/12/19 06:00 PT 12.6 SECONDS (9.4-12.5) H 03/10/19 14:00 INR 1.14 03/10/19 14:00 APTT 30.1 Seconds (26.9-38.3) 03/10/19 14:00 Attending/Attestation - Attestation I have personally seen and examined this patient.: Yes I have fully participated in the care of the patient.: Yes I have reviewed all pertinent clinical information, including history, physical exam and plan: Yes Notes (Text): Patient seen and examined by me with resident at approximately 8:30AM on 03/12/19. Case including HPI, physical exam, and assessment and plan discussed with resident. Agree with above with following additions/corrections. Patient states that he continues to feel better. Patient currently does not feel short of breath but states he has not walked around much or exerted himself. Cough continues to improve. Patient denies chest pain or palpitations. No shar sea, vomiting, or abdominal pain. No headaches or dizziness. No fevers or chills. No dysuria. No diarrhea or constipation. Physical exam: General: Awake and alert sitting up in bed in no acute distress HEENT: Normocephalic, atraumatic. Extraocular muscles intact. Pupils equal and reactive, no scleral icterus. Oropharynx is pink and moist. Neck is supple. Cardiovascular: Normal rhythm. Normal S1 and S2. No murmurs, rubs, or gallops appreciated Pulmonary: Normal respiratory effort. Decreased breath sound. No rhonchi, rales, or wheezing appreciated. Gastrointestinal: Soft. Nondistended. Nontender. Positive bowel sounds all 4 quadrants. No guarding. Positive obese abdomen. Musculoskeletal: Moves all extremities. No calf tenderness. Improved lower extremity pitting edema. Central nervous system: AAO X 3. CN 2-12 grossly intact. Dermatologic: Skin warm and dry. Left second toe with ulcer with scab, no drainage noted. Assessment and plan: Patient is a 53 year old male with past medical history significant for hypertension, noninsulin dependent DM2, hyperlipidemia, and chronic systolic CHF (last EF in 2016 was 22%) that presented to the emergency room with progressively worse shortness of breath over the past 2 weeks. 1. Shortness of breath. Secondary to acute on chronic systolic CHF exacerbation. 2D echo in 2016 showed EF of 22%. 2D echo here per intelligence chief showed EF of approximately 19.1, left ventricle mildly elevated, systolic function is severely impaired, global hypokinesis of left ventrile, right ventricle is mildly dilated and severely hypokinetic, moderate tricuspid regurgitation. Emergency Generator Mechanic recommendations appreciated. Cozaar stopped and Entresto to be started tomorrow per Dr. Harkins. Continue IV lasix 60mg IV q12h. Continue ASA and aldactone. Beta tata held secondary to UDS being positive for cocaine and bradycardia overnight. Continue strict I's and O's. Continue to monitor daily weights. Chest CT per radiologist showed unremarkbale non-contrast enhanced CT of the chest. 2. DM2. HgbA1C 9.5. Continue insulin sliding scale. Continue to monitor acc uchecks. Diet and exercise discussed with patient. early childhood special educator consulted. 3. Left toe ulceration. Chronic. No drainage noted. Podiatry consulted, follow up recommendations. Local wound care. 4. Hypomagnesemia. Resolved. Continue to monitor. 5. Hypertension. Continue Lasix. Entresto to start tomorrow. Beta tata held secondary to UDS being positive for cocaine. 6. Hyperlipidemia. Continue lipitor. 7. Alcohol abuse. Patient admitted today to daily heavy drinking to intelligence chief. Placed on thiamine, folic acid, and multivitamin. Patient strongly advised on complete alcohol cessation. 8. Cocaine use. UDS positive for cocaine. Patient counseled at length on cessation. 9. DVT prophylaxis. Heparin. Case was discussed in detail with the patient regarding current diagnosis, study results, and treatment plan. All questions answered. Case also discussed with intelligence chief Dr. Harkins.
--- NOTE | 2019-03-12 16:58 | PN ---
DATE: 03/12/2019 REASON FOR DICTATION: Covering Dr. Arciniega. REASON FOR CONSULTATION: Follow up congestive heart failure. SUBJECTIVE: The patient denies any chest pain, shortness of breath, or any palpitation. PHYSICAL EXAMINATION: GENERAL: Not in apparent distress. VITAL SIGNS: Temperature afebrile, heart rate 75, and blood pressure 115/73. HEENT: PERRLA. Extraocular muscles intact. NECK: Supple. No carotid bruits or thyromegaly. CHEST: Clear to auscultation. HEART: S1 and S2 regular. ABDOMEN: Soft. EXTREMITIES: Clubbing and cyanosis negative, 1+ pedal edema. LABORATORY DATA: Blood workup: WBC 9.4, hemoglobin 14.5, hematocrit 45.2, and platelet count 352. Chemistry shows sodium 135, potassium 4, chloride 19, carbon dioxide 31, anion gap of 12, BUN 23 and creatinine 0.9. EKG showed normal sinus with occasional PVCs. Nonspecific ST T changes noted. The patient had an echocardiography done that revealed severely impaired LV function, global hypokinesis noted, mildly dilated and severely hypokinetic, moderate tricuspid regurgitation noted, RV systolic pressure 30, no mitral regurgitation noted, calculated ejection fraction 20%. IMPRESSION: A 53-year-old male with past medical history significant for possible nonischemic cardiomyopathy possibly secondary to alcohol abuse, history of cocaine abuse, history of alcohol abuse, drinking heavy alcohol. RECOMMENDATIONS: We will continue Aldactone. Continue aspirin. Continue diuretics. We will hold Cozaar and start Entresto. Agree with Dr. Arciniega's recommendation, not a candidate for long-term anticoagulation or implantable cardioverter-defibrillator because of alcohol abuse and noncompliant for the medication. The patient . Discussed with the patient in length and emphasis is made for complete cessation of substance abuse, complete abstinence of alcohol abuse. For now aggressive medical treatment. Previous chart reviewed. The patient was seen by Dr. Prieto on 04/25/2016. The patient had history of alcohol abuse since then and also history of cardiomyopathy at that time and emphasis was made for complete abstinence of substance abuse as well as abstinence of alcohol but appears to be the patient noncompliance. Previous echo on 04/23/2016 showed calculated ejection fraction. At that time, it was 22% dated 04/23/2016, so the patient needs to be compliant with the medication, and at this present time, the patient is not a good candidate for any intervention unless the patient becomes compliant. He is not a good candidate for long-term anticoagulation because of his substance abuse as well as alcohol abuse. Most likely the patient stops substance as well as stops drinking with optimal medical treatment, EF will improve and may not need automated implantable cardioverter defibrillator, but needs very close followup. As mentioned, we will discontinue Cozaar and start Entresto after washout period of 48 hours. We will transfer care on Thursday to Dr. Arciniega. Thank you, Dr. Arciniega, for providing us the opportunity in taking care of the patient, Luis Nunes. Rachael Harkins MD
[2019-03-13] MEDS: Insulin Reg-LOW-Coverage SC SCH ×4 (08:26→21:15)
[2019-03-13] MEDS: Multivitamin Therapeutic Tab PO SCH (08:27)
[2019-03-13] MEDS: Potassium Chloride 20 mEq ER Tab PO SCH (08:27)
[2019-03-13] MEDS: guaiFENesin DM 200 mg-20 mg/10 ml UD PO PRN ×2 (08:31→21:15)
[2019-03-13] MEDS: SACUBITRIL 24mg/VALSARTAN 26mg tab PO SCH ×2 (09:41→17:08)
--- NOTE | 2019-03-13 10:18 | CP.PCM.PN ---
<Nidhi Barber - Last Filed: 03/13/19 10:14> Subjective - Date & Time of Evaluation Date of Evaluation: 03/13/19 Time of Evaluation: 08:30 - Subjective Subjective: Nidhi Barber PGY1 Medicine Progress Note Patient seen and examined at bedside. No acute events reported overnight. Patient seen resting in bed comfortably and tolerating diet without complaints. Patient states he will pay for entresto out of pocket. Plan for discharge in the next 2-3 days. Patient denies CP, SOB, fevers, nausea, vomiting, abdominal pain, urinary complaints and chills. Objective - Vital Signs/Intake and Output Vital Signs (last 24 hours): Temp Pulse Resp BP Pulse Ox 97.7 F 76 19 115/76 98 03/13/19 05:41 03/13/19 05:41 03/13/19 05:41 03/13/19 09:40 03/13/19 05:41 Intake and Output: 03/13/19 03/13/19 06:59 18:59 Intake Total 120 Output Total 700 Balance -580 - Medications Medications: Current Medications Aspirin (Aspirin Chewable) 81 mg PO DAILY [facility] Last Admin: 03/13/19 09:41 Dose: 81 mg Atorvastatin Calcium (Lipitor) 40 mg PO DIN [facility] Last Admin: 03/12/19 17:28 Dose: 40 mg Dextrose (Dextrose 50% Inj) 0 ml IV STAT PRN; Protocol PRN Reason: Hypoglycemia Protocol Folic Acid (Folic Acid) 1 mg PO DAILY [facility] Last Admin: 03/13/19 09:41 Dose: 1 mg Furosemide (Lasix) 60 mg IVP Q12 [facility] Last Admin: 03/13/19 09:40 Dose: 60 mg Glipizide (Glucotrol) 10 mg PO DAILY [facility] Last Admin: 03/13/19 09:52 Dose: 10 mg Guaifenesin/Dextromethorphan (Robitussin Dm) 10 ml PO Q4H PRN PRN Reason: Cough Last Admin: 03/13/19 08:31 Dose: 10 ml Heparin Sodium (Porcine) (Heparin) 5,000 units SC Q8 LAY; Protocol Last Admin: 03/13/19 06:31 Dose: 5,000 units Dextrose (Dextrose 5% In Water 1000 Ml) 1,000 mls @ 0 mls/hr IV .Q0M PRN; Protocol PRN Reason: Hypoglycemia Protocol Insulin Human Regular (Humulin R Low) 0 units SC ACHS [facility]; Protocol Last Admin: 03/13/19 08:26 Dose: 1 units Multivitamins (Thera Tab) 1 tab PO 0800 [facility] Last Admin: 03/13/19 08:27 Dose: 1 tab Potassium Chloride (K-Dur 20 Meq Er Tab) 20 meq PO BRK [facility] Last Admin: 03/13/19 08:27 Dose: 20 meq Sacubitril/Valsartan (Entresto 24 Mg-26 Mg Tablet) 1 each PO BID [facility] Last Admin: 03/13/19 09:41 Dose: 1 each Spironolactone (Aldactone) 25 mg PO DAILY [facility] Last Admin: 03/13/19 09:41 Dose: 25 mg Thiamine HCl (Vitamin B1 Tab) 100 mg PO DAILY [facility] Last Admin: 03/13/19 09:41 Dose: 100 mg - Labs Labs: 03/12/19 06:00 03/12/19 06:00 PT 12.6 SECONDS (9.4-12.5) H 03/10/19 14:00 INR 1.14 03/10/19 14:00 APTT 30.1 Seconds (26.9-38.3) 03/10/19 14:00 - Constitutional Appears: Well, Non-toxic, No Acute Distress - Eye Exam Eye Exam: EOMI, PERRL - Respiratory Exam Respiratory Exam: Clear to Ausculation Bilateral, NORMAL BREATHING PATTERN. absent: Rales, Rhonchi, Wheezes - Cardiovascular Exam Cardiovascular Exam: RRR. absent: Murmur - GI/Abdominal Exam GI & Abdominal Exam: Soft. absent: Tenderness, rebound, rigidity Additional comments: globular abdomen - Extremities Exam Additional comments: LE +1 pitting edema B/L noted, 2+ Distal pulses B/L noted Left foot ulceration on posterior heel of foot and 2nd digit - Neurological Exam Neurological Exam: Alert, Awake, Oriented x3, CN II-XII intact - Psychiatric Exam Psychiatric exam: Normal Affect, Normal Mood - Skin Skin Exam: Dry, Intact, Warm Assessment and Plan - Assessment and Plan (Free Text) Assessment: This is a 53 year old male with PMH HTN, DM, HLD, CHF (EF 19% on 02/2019), presenting w/ dry cough and chest tightness on 03/10 and admitted for CHF exacerbation. Patient agrees to pay for entresto out of pocket. Will plan for discharge in the next 2-3 days. Patient to have meds to beds upon discharge. Plan: CHF Exacerbation - systolic dysfunction -ECHO on 03/11 reveals EF 19%, Global Hypokinesis -BNP elevated on admission -continue 60 Q12 -continue Aldactone 25 QD -off of cozaar as per cardiology -continue entresto, patient to pay out of pocket upon discharge -patient advised and counseled on alcohol/cocaine cessation -Not candidate for AICD given drug abuse/ EtOH abuse -Cardiology following, Dr. Harkins Hx of DM2 -started on home glipizide -ISS Low ACHS -Fingersticks ACHS -A1C 9.5 Hx of HLD -continue Lipitor 40 Daily Hx of HTN -continue Entresto, patient to pay out of pocket upon discharge -continue ASA Hx of cocaine, alcohol abuse -continue thiamine, Folic acid, MultiVit -holding coreg due to cocaine abuse PPX -heparin 5k q8 -HHD -PT eval/treat - recommend discharge home, outpatient cardiac rehab Patient seen and case discussed with attending, Dr. Kraft <Freida Kraft - Last Filed: 03/13/19 15:09> Objective - Vital Signs/Intake and Output Vital Signs (last 24 hours): Temp Pulse Resp BP Pulse Ox 97.6 F 80 18 137/88 98 03/13/19 12:00 03/13/19 14:00 03/13/19 12:00 03/13/19 12:00 03/13/19 05:41 Intake and Output: 03/13/19 03/13/19 06:59 18:59 Intake Total 120 Output Total 700 Balance -580 - Medications Medications: Current Medications Aspirin (Aspirin Chewable) 81 mg PO DAILY [facility] Last Admin: 03/13/19 09:41 Dose: 81 mg Atorvastatin Calcium (Lipitor) 40 mg PO DIN [facility] Last Admin: 03/12/19 17:28 Dose: 40 mg Dextrose (Dextrose 50% Inj) 0 ml IV STAT PRN; Protocol PRN Reason: Hypoglycemia Protocol Folic Acid (Folic Acid) 1 mg PO DAILY [facility] Last Admin: 03/13/19 09:41 Dose: 1 mg Furosemide (Lasix) 60 mg IVP Q12 [facility] Last Admin: 03/13/19 09:40 Dose: 60 mg Glipizide (Glucotrol) 10 mg PO DAILY [facility] Last Admin: 03/13/19 09:52 Dose: 10 mg Guaifenesin/Dextromethorphan (Robitussin Dm) 10 ml PO Q4H PRN PRN Reason: Cough Last Admin: 03/13/19 08:31 Dose: 10 ml Heparin Sodium (Porcine) (Heparin) 5,000 units SC Q8 LAY; Protocol Last Admin: 03/13/19 13:25 Dose: 5,000 units Dextrose (Dextrose 5% In Water 1000 Ml) 1,000 mls @ 0 mls/hr IV .Q0M PRN; Protocol PRN Reason: Hypoglycemia Protocol Insulin Human Regular (Humulin R Low) 0 units SC ACHS [facility]; Protocol Last Admin: 03/13/19 12:27 Dose: 2 units Multivitamins (Thera Tab) 1 tab PO 0800 [facility] Last Admin: 03/13/19 08:27 Dose: 1 tab Potassium Chloride (K-Dur 20 Meq Er Tab) 20 meq PO BRK [facility] Last Admin: 03/13/19 08:27 Dose: 20 meq Sacubitril/Valsartan (Entresto 24 Mg-26 Mg Tablet) 1 each PO BID [facility] Last Admin: 03/13/19 09:41 Dose: 1 each Spironolactone (Aldactone) 25 mg PO DAILY [facility] Last Admin: 03/13/19 09:41 Dose: 25 mg Thiamine HCl (Vitamin B1 Tab) 100 mg PO DAILY [facility] Last Admin: 03/13/19 09:41 Dose: 100 mg - Labs Labs: 03/12/19 06:00 03/12/19 06:00 PT 12.6 SECONDS (9.4-12.5) H 03/10/19 14:00 INR 1.14 03/10/19 14:00 APTT 30.1 Seconds (26.9-38.3) 03/10/19 14:00 Attending/Attestation - Attestation I have personally seen and examined this patient.: Yes I have fully participated in the care of the patient.: Yes I have reviewed all pertinent clinical information, including history, physical exam and plan: Yes Notes (Text): 03/13/19 15:04 Attending note; Patient seen and examined with resident . Patient is alert and awake . Denies any chest pain, shortness of breath . Denies any fevers, chills . Denies any abdominal pain, nausea, vomiting . Patient is a 53 year old male with past medical history significant for hypertension, noninsulin dependent DM2, hyperlipidemia, and chronic systolic CHF (last EF in 2016 was 22%) that presented to the emergency room with progre ssively worse shortness of breath over the past 2 weeks. 1. Shortness of breath/ acute on chronic systolic CHF exacerbation. 2D echo in 2016 showed EF of 22%. Now EF of approximately 19% left ventricle mildly elevated, systolic function is severely impaired, global hypokinesis of left ventrile, right ventricle is mildly dilated and severely hypokinetic, moderate tricuspid regurgitation. Cardiology evaluation appreciated . Cozaar stopped and started on Entresto. Continue IV lasix 60mg IV q12h. patient is in negative balance. No edema noted. continue ASA and aldactone. Continue strict I's and O's. Patient is advised to monitor daily weights. Chest CT is unremarkbale. 2. DM2. HgbA1C 9.5. Continue insulin sliding scale. Started on glipizide . Will add metformin if needed . continue to monitor accuchecks. Diet and exercise discussed with patient. 3. Left toe ulceration. Chronic. No drainage noted. Podiatry consulted for Local wound care. X-ray ordered. 4. Hypertension. Continue Lasix. Entresto. 5. Hyperlipidemia. Continue lipitor. 6. Alcohol abuse; complete alcohol cessation is strongly advised. on thiamine, folic acid, and multivitamin. cessation. 7. Cocaine use. UDS positive for cocaine. Complete drug abuse cessation is strongly advised. 8. DVT prophylaxis. Heparin. Monitor closely in telemetry. We will follow-up with cardiology and podiatry. Upon discharge the patient will follow up with PMD .
--- NOTE | 2019-03-13 12:31 | CP.PCM.CON ---
History of Present Illness - History of Present Illness History of Present Illness: Podiatry Consult Note: Dr. Hensley/Carmella 53M patient with PMHx of CHF, DMII, seen and examined for left 2nd digit callus. Patient states that he had an ulcer there in the past and it has opened and closed several times over the past few years. Currently, the area is healed with a callus overlying the area. He states that he has not had a problem with the area recently. Denies nausea/vomiting/fever/chills. PMHx: as above PSH: denies ALL: NKDA Review of Systems - Constitutional Constitutional: As Per HPI Past Patient History - Infectious Disease Hx of Infectious Diseases: None - Tetanus Immunizations Tetanus Immunization: Unknown - Past Social History Smoking Status: Never Smoked - CARDIAC Hx Congestive Heart Failure: Yes (EF 22% in 2016) Hx Hypertension: Yes - PULMONARY Hx Respiratory Disorders: No - NEUROLOGICAL Hx Neurological Disorder: No - HEENT Hx HEENT Problems: No - RENAL Hx Chronic Kidney Disease: No - ENDOCRINE/METABOLIC Hx Diabetes Mellitus Type 2: Yes - HEMATOLOGICAL/ONCOLOGICAL Hx Blood Disorders: No - INTEGUMENTARY Hx Dermatological Problems: No - MUSCULOSKELETAL/RHEUMATOLOGICAL Hx Musculoskeletal Disorders: No Hx Falls: No - GASTROINTESTINAL Hx Gastrointestinal Disorders: No - GENITOURINARY/GYNECOLOGICAL Hx Genitourinary Disorders: No - PSYCHIATRIC Hx Psychophysiologic Disorder: No Hx Substance Use: No - SURGICAL HISTORY Hx Surgeries: No - ANESTHESIA Hx Anesthesia: No Hx Anesthesia Reactions: No Hx Malignant Hyperthermia: No Meds Allergies/Adverse Reactions: Allergies Allergy/AdvReac Type Severity Reaction Status Date / Time No Known Allergies Allergy Verified 02/23/19 11:46 - Medications Medications: Current Medications Aspirin (Aspirin Chewable) 81 mg PO DAILY [facility] Last Admin: 03/13/19 09:41 Dose: 81 mg Atorvastatin Calcium (Lipitor) 40 mg PO DIN [facility] Last Admin: 03/12/19 17:28 Dose: 40 mg Dextrose (Dextrose 50% Inj) 0 ml IV STAT PRN; Protocol PRN Reason: Hypoglycemia Protocol Folic Acid (Folic Acid) 1 mg PO DAILY [facility] Last Admin: 03/13/19 09:41 Dose: 1 mg Furosemide (Lasix) 60 mg IVP Q12 [facility] Last Admin: 03/13/19 09:40 Dose: 60 mg Glipizide (Glucotrol) 10 mg PO DAILY [facility] Last Admin: 03/13/19 09:52 Dose: 10 mg Guaifenesin/Dextromethorphan (Robitussin Dm) 10 ml PO Q4H PRN PRN Reason: Cough Last Admin: 03/13/19 08:31 Dose: 10 ml Heparin Sodium (Porcine) (Heparin) 5,000 units SC Q8 [facility]; Protocol Last Admin: 03/13/19 06:31 Dose: 5,000 units Dextrose (Dextrose 5% In Water 1000 Ml) 1,000 mls @ 0 mls/hr IV .Q0M PRN; Protocol PRN Reason: Hypoglycemia Protocol Insulin Human Regular (Humulin R Low) 0 units SC ACHS [facility]; Protocol Last Admin: 03/13/19 12:27 Dose: 2 units Multivitamins (Thera Tab) 1 tab PO 0800 [facility] Last Admin: 03/13/19 08:27 Dose: 1 tab Potassium Chloride (K-Dur 20 Meq Er Tab) 20 meq PO BRK [facility] Last Admin: 03/13/19 08:27 Dose: 20 meq Sacubitril/Valsartan (Entresto 24 Mg-26 Mg Tablet) 1 each PO BID [facility] Last Admin: 03/13/19 09:41 Dose: 1 each Spironolactone (Aldactone) 25 mg PO DAILY [facility] Last Admin: 03/13/19 09:41 Dose: 25 mg Thiamine HCl (Vitamin B1 Tab) 100 mg PO DAILY [facility] Last Admin: 03/13/19 09:41 Dose: 100 mg Physical Exam - Constitutional Appears: Non-toxic, No Acute Distress - Head Exam Head Exam: ATRAUMATIC, NORMOCEPHALIC - Extremities Exam Additional comments: Vascular: DP/PT 2/4, CFT < 3seconds, TG warm to warm, no edema appreciated to foot Ortho: No pain with palpation of callus, MMT 5/5, hammertoe deformity of second digit b/l Neuro: Gross sensation intact, protective sensation diminished Derm: Callus appreciated to distal aspect of 2nd digit, no open lesions, no drainage, no tunneling, no tracking, no erythema, no clinical signs o infection. - Neurological Exam Neurological exam: Alert, Oriented x3 - Psychiatric Exam Psychiatric exam: Normal Affect, Normal Mood - Skin Skin Exam: Warm Results - Vital Signs Recent Vital Signs: Last Vital Signs Temp 97.7 F 03/13/19 05:41 Pulse 83 03/13/19 10:00 Resp 19 03/13/19 05:41 BP 115/76 03/13/19 09:40 Pulse Ox 98 03/13/19 05:41 - Labs Result Diagrams: 03/12/19 06:00 03/12/19 06:00 Labs: Laboratory Results - last 24 hr 03/12/19 03/12/19 03/13/19 16:12 21:18 07:09 POC Glucose (mg/dL) 187 H 212 H 188 H 03/13/19 10:40 POC Glucose (mg/dL) 214 H Assessment & Plan - Assessment and Plan (Free Text) Assessment: 53M patient with PMHx of CHF, DMII, seen and examined for left 2nd digit callus; stable Plan: Patient seen and examined Discussed with Dr. Carmella CHRISTIANSON Left foot x-rays ordered to r/o chronic OM Continue to monitor for diabetic ulcerations Encouraged patient to continue to follow up with system analyst as outpatient Thank you for the consult - Date & Time Date: 03/13/19 Time: 12:50
--- NOTE | 2019-03-13 14:02 | RAD ---
Date of service: 03/13/2019 PROCEDURE: Left Foot Radiographs. HISTORY: L 2nd digit callus COMPARISON: MRI of the left forefoot dated 07/16/2017. TECHNIQUE: 3 views obtained. FINDINGS: BONES: Interval demineralization of the 2nd distal phalanx. JOINTS: Normal. SOFT TISSUES: Distal 2nd digit soft tissue swelling OTHER FINDINGS: None. 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
--- NOTE | 2019-03-13 15:20 | CP.PCM.PCO ---
<Felicitas Hickey - Last Filed: 03/13/19 15:17> Addendum Addendum: 03/13/19 15:18 Left foot x-rays show evidence of osteomyelitis of left second digit phalanx. Discussed with patient treatment options of care home IV antibiotics vs amputation. Patient would like to proceed with amputation at this time. Non- invasive vascular tests and lower extremity MRI ordered to evaluated the extent of OM. Plan for left second digit distal amputation this week with Dr. Hensley/Carmella. Please medically optimize patient and provide cardiac risk assessment. 03/13/19 15:20 <Bj Weir - Last Filed: 03/15/19 11:07> Attending/Attestation - Attestation I have personally seen and examined this patient.: Yes I have fully participated in the care of the patient.: Yes I have reviewed all pertinent clinical information: Yes
--- NOTE | 2019-03-13 15:46 | PN ---
DATE: 03/13/2019 REASON FOR DICTATION: Covering Dr. Arciniega. REASON FOR CONSULTATION: Followup congestive heart failure, acute on chronic secondary to systolic dysfunction. SUBJECTIVE: The patient denies any chest pain, shortness of breath, or any palpitation. PHYSICAL EXAMINATION: GENERAL: Not in apparent distress. VITAL SIGNS: Temperature afebrile, heart rate 76, and blood pressure 115/76. HEENT: PERRLA. Extraocular muscles intact. NECK: Supple. No carotid bruits or thyromegaly. CHEST: Clear to auscultation. HEART: S1 and S2 regular. ABDOMEN: Soft. EXTREMITIES: Clubbing and cyanosis negative. LABORATORY DATA: Blood workup as follows: WBC 9.4, hemoglobin 14.5, hematocrit 45.2, and platelet count 252. Chemistry shows sodium 130, potassium 4.3, chloride 31, carbon dioxide 12, BUN 24 and creatinine 0.9 as of yesterday. 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 The patient has active alcohol abuse and a history of cocaine abuse, drinking heavy alcohol, admitted with acute decompensated congestive heart failure. RECOMMENDATIONS: The patient was started on Entresto daily. Continue Aldactone. Continue baby aspirin 81 mg daily. Continue DVT prophylaxis. Continue Lasix. Continue atorvastatin. We may add on low dose of Coreg if the blood pressure is tolerated. 1. Explained to the patient that the patient is compliant with the medication. 2. Complete cigarette smoking emphasis and weight reduction and reassess LV function in 3 to 6 months if it remains below 35%, consider AICD and suggested the patient will be on Entresto. We will repeat the blood workup tomorrow. We will transfer care tomorrow to Dr. Arciniega. Rachael Harkins MD
[2019-03-14 07:15] LABS: BASO # 0.03 K/mm3 (0.0-2.0); BASO % 0.2 % (0.0-3.0); EOS # 0.2 (0.0-0.7); EOS % 1.2 % (1.5-5.0); HEMOGLOBIN 16.5 g/dL (14.0-18.0); LYMPH # 2.8 (1.2-3.4); LYMPH % 22.6 % (22.0-35.0); MEAN CELL VOLUME 92.8 fl (80.0-105.0); MEAN CORPUSCULAR HEMOGLOBIN 29.7 pg (25.0-35.0); MEAN PLATELET VOLUME 12.1 fl (7.0-11.0); MONO # 0.6 (0.1-0.6); RBC 5.55 10^6/uL (3.5-6.1); WHITE BLOOD COUNT 12.2 10^3/uL (4.5-11.0)
[2019-03-14 07:45] LABS: ALB/GLOB RATIO 1.1 (1.1-1.8); ALT/SGPT 40 U/L (7-56); AST/SGOT 50 U/L (17-59); BLOOD UREA NITROGEN 24 mg/dL (7-21); GFR NON-AFRICAN AMERICAN > 60
[2019-03-14] MEDS: Insulin Reg-LOW-Coverage SC SCH ×4 (09:26→21:37)
[2019-03-14] MEDS: SACUBITRIL 24mg/VALSARTAN 26mg tab PO SCH ×2 (09:26→17:43)
[2019-03-14] MEDS: Potassium Chloride 20 mEq ER Tab PO SCH (09:27)
[2019-03-14] MEDS: Multivitamin Therapeutic Tab PO SCH (09:29)
--- NOTE | 2019-03-14 10:09 | CP.PCM.PN ---
<Atilio Shore - Last Filed: 03/14/19 12:58> Subjective - Date & Time of Evaluation Date of Evaluation: 03/14/19 Time of Evaluation: 07:10 - Subjective Subjective: Atilio Shore DO PGY1 Hospitalist Progress Note for Dr Kraft Patient seen and examined at bedside. Patient reports improved SOB today, urinating, tolerating regular diet. Denies chest pain, palpitations, cough. Objective - Vital Signs/Intake and Output Vital Signs (last 24 hours): Temp Pulse Resp BP Pulse Ox 98 F 83 20 103/70 96 03/14/19 05:48 03/14/19 09:25 03/14/19 05:48 03/14/19 09:25 03/14/19 05:48 Intake and Output: 03/14/19 03/14/19 06:59 18:59 Intake Total 350 Output Total 350 Balance 0 - Medications Medications: Current Medications Aspirin (Aspirin Chewable) 81 mg PO DAILY [facility] Last Admin: 03/14/19 09:25 Dose: 81 mg Atorvastatin Calcium (Lipitor) 40 mg PO DIN [facility] Last Admin: 03/13/19 17:07 Dose: 40 mg Carvedilol (Coreg) 3.125 mg PO BID [facility] Last Admin: 03/14/19 09:25 Dose: 3.125 mg Dextrose (Dextrose 50% Inj) 0 ml IV STAT PRN; Protocol PRN Reason: Hypoglycemia Protocol Folic Acid (Folic Acid) 1 mg PO DAILY [facility] Last Admin: 03/14/19 09:26 Dose: 1 mg Furosemide (Lasix) 40 mg IVP 0600,1800 [facility] Glipizide (Glucotrol) 10 mg PO DAILY [facility] Last Admin: 03/14/19 09:26 Dose: 10 mg Guaifenesin/Dextromethorphan (Robitussin Dm) 10 ml PO Q4H PRN PRN Reason: Cough Last Admin: 03/13/19 21:15 Dose: 10 ml Heparin Sodium (Porcine) (Heparin) 5,000 units SC Q8 [facility]; Protocol Last Admin: 03/14/19 05:36 Dose: 5,000 units Dextrose (Dextrose 5% In Water 1000 Ml) 1,000 mls @ 0 mls/hr IV .Q0M PRN; Protocol PRN Reason: Hypoglycemia Protocol Insulin Human Regular (Humulin R Low) 0 units SC ACHS [facility]; Protocol Last Admin: 03/14/19 09:26 Dose: 2 units Metformin HCl (Glucophage) 1,000 mg PO BID [facility] Last Admin: 03/14/19 09:26 Dose: 1,000 mg Multivitamins (Thera Tab) 1 tab PO 0800 [facility] Last Admin: 03/14/19 09:29 Dose: 1 tab Potassium Chloride (K-Dur 20 Meq Er Tab) 20 meq PO BRK [facility] Last Admin: 03/14/19 09:27 Dose: 20 meq Sacubitril/Valsartan (Entresto 24 Mg-26 Mg Tablet) 1 each PO BID [facility] Last Admin: 03/14/19 09:26 Dose: 1 each Spironolactone (Aldactone) 25 mg PO DAILY [facility] Last Admin: 03/14/19 09:25 Dose: 25 mg Thiamine HCl (Vitamin B1 Tab) 100 mg PO DAILY [facility] Last Admin: 03/14/19 09:27 Dose: 100 mg - Labs Labs: 03/14/19 06:30 03/14/19 06:30 PT 12.6 SECONDS (9.4-12.5) H 03/10/19 14:00 INR 1.14 03/10/19 14:00 APTT 30.1 Seconds (26.9-38.3) 03/10/19 14:00 - Constitutional Appears: Well, Non-toxic, No Acute Distress - Head Exam Head Exam: ATRAUMATIC, NORMAL INSPECTION, NORMOCEPHALIC - Eye Exam Eye Exam: EOMI, Normal appearance, PERRL Pupil Exam: NORMAL ACCOMODATION, PERRL - ENT Exam ENT Exam: Normal Exam - Neck Exam Neck Exam: Full ROM, Normal Inspection - Respiratory Exam Respiratory Exam: Clear to Ausculation Bilateral, NORMAL BREATHING PATTERN - Cardiovascular Exam Cardiovascular Exam: REGULAR RHYTHM, +S1, +S2. absent: Murmur - GI/Abdominal Exam GI & Abdominal Exam: Soft, Normal Bowel Sounds. absent: Tenderness - Extremities Exam Extremities Exam: Full ROM, Normal Capillary Refill, Normal Inspection. 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 Just callus formation -X-Ray left foot: consistent with osteomyelitis -f/u MRI left foot -f/u LE US -medical therapy with abx vs surgical options discussed with patient by podiatry team. Patient prefers surgical option -local wound care -podiatry following Non-ischemic cardiomyopathy: -likely due to alcohol/drug abuse -Echo EF 22% LV function severly impaired, global hypokinesia. Compared to EF 22% in 2016 -continue coreg, spironolactone, entresto, KCl -not candidate for AICD in the setting of drug abuse -cardio following, Dr Aguilar Resolved CHF exacerbation: -EKG: NSR @86, with PVC, QTc 466 on admission -CXR: mild cardiomegaly, no pulm vascular congestion -Trops negative x3 -BNP 2430 on admission -CT chest 03/10: unremarkable -continue lasix 40 bid -daily weight -strict I/0. monitor UO -PT/INR 12.6/1.14 HTN/HLD: -lipid profile: TG 211, HDL 23 -continue lipitor, asa -TSH, T4 wnl DM2: -A1C 9.5 -accuchecks -ISS-L -continue home metformin, glipizide -diabetic education -dietitian referral h/o alcohol use: -UDS: positive for cocaine -UA negative -continue MVI, folic acid, thiamine PPX: -DVT: heparin sq, SCD -GI: not indicated -HHD -PT: recommend home d/c with outpatient cardiac rehab Case reviewed and plan discussed with Dr Abena Shore, <Freida Kraft - Last Filed: 03/14/19 14:33> Objective - Vital Signs/Intake and Output Vital Signs (last 24 hours): Temp Pulse Resp BP Pulse Ox 98 F 88 20 135/88 96 03/14/19 11:38 03/14/19 11:38 03/14/19 11:38 03/14/19 11:38 03/14/19 05:48 Intake and Output: 03/14/19 03/14/19 06:59 18:59 Intake Total 350 Output Total 350 Balance 0 - Medications Medications: Current Medications Aspirin (Aspirin Chewable) 81 mg PO DAILY [facility] Last Admin: 03/14/19 09:25 Dose: 81 mg Atorvastatin Calcium (Lipitor) 40 mg PO DIN [facility] Last Admin: 03/13/19 17:07 Dose: 40 mg Carvedilol (Coreg) 3.125 mg PO BID [facility] Last Admin: 03/14/19 09:25 Dose: 3.125 mg Dextrose (Dextrose 50% Inj) 0 ml IV STAT PRN; Protocol PRN Reason: Hypoglycemia Protocol Folic Acid (Folic Acid) 1 mg PO DAILY [facility] Last Admin: 03/14/19 09:26 Dose: 1 mg Furosemide (Lasix) 40 mg IVP 0600,1800 [facility] Glipizide (Glucotrol) 10 mg PO DAILY [facility] Last Admin: 03/14/19 09:26 Dose: 10 mg Guaifenesin/Dextromethorphan (Robitussin Dm) 10 ml PO Q4H PRN PRN Reason: Cough Last Admin: 03/13/19 21:15 Dose: 10 ml Heparin Sodium (Porcine) (Heparin) 5,000 units SC Q8 [facility]; Protocol Last Admin: 03/14/19 05:36 Dose: 5,000 units Dextrose (Dextrose 5% In Water 1000 Ml) 1,000 mls @ 0 mls/hr IV .Q0M PRN; Protocol PRN Reason: Hypoglycemia Protocol Insulin Human Regular (Humulin R Low) 0 units SC ACHS [facility]; Protocol Last Admin: 03/14/19 12:10 Dose: 1 unit Metformin HCl (Glucophage) 1,000 mg PO BID [facility] Last Admin: 03/14/19 09:26 Dose: 1,000 mg Multivitamins (Thera Tab) 1 tab PO 0800 [facility] Last Admin: 03/14/19 09:29 Dose: 1 tab Potassium Chloride (K-Dur 20 Meq Er Tab) 20 meq PO BRK [facility] Last Admin: 03/14/19 09:27 Dose: 20 meq Sacubitril/Valsartan (Entresto 24 Mg-26 Mg Tablet) 1 each PO BID [facility] Last Admin: 03/14/19 09:26 Dose: 1 each Spironolactone (Aldactone) 25 mg PO DAILY [facility] Last Admin: 03/14/19 09:25 Dose: 25 mg Thiamine HCl (Vitamin B1 Tab) 100 mg PO DAILY [facility] Last Admin: 03/14/19 09:27 Dose: 100 mg - Labs Labs: 03/14/19 06:30 03/14/19 06:30 PT 12.6 SECONDS (9.4-12.5) H 03/10/19 14:00 INR 1.14 03/10/19 14:00 APTT 30.1 Seconds (26.9-38.3) 03/10/19 14:00 Attending/Attestation - Attestation I have personally seen and examined this patient.: Yes I have fully participated in the care of the patient.: Yes I have reviewed all pertinent clinical information, including history, physical exam and plan: Yes Notes (Text): 03/14/19 14:28 Attending note; Patient seen and examined with resident. Patient is alert and awake. Denies any chest pain, shortness of breath . Denies any fevers, chills . Denies any abdominal pain, nausea, vomiting . Patient is a 53 year old male with past medical history significant for hypertension, noninsulin dependent DM2, hyperlipidemia, and chronic systolic CHF (last EF in 2016 was 22%) that presented to the emergency room with progressively worse shortness of breath over the past 2 weeks. 1. Shortness of breath/ acute on chronic systolic CHF exacerbation. 2D echo in 2016 showed EF of 22%. Now EF of approximately 19% left ventricle mildly elevated, systolic function is severely impaired, global hypokinesis of left ventrile, right ventricle is mildly dilated and severely hypokinetic, moderate tricuspid regurgitation. Cardiology evaluation appreciated . Cozaar stopped and started on Entresto. patient is in negative balance. No edema noted. Lasix dosage decreased. continue ASA and aldactone. Continue strict I's and O's. 2. DM2. HgbA1C 9.5. dietary education given. Dietitian evaluation requested. Started on glipizide and metformin. continue to monitor accuchecks. Diet and exercise discussed with patient. 3. Left toe ulceration. Chronic. No drainage noted. Podiatry consulted for Local wound care. X-ray showed left 2 nd distal toe osteomyelitis. MRI ordered. toe amputation panned. we will follow up with podiatry. 4. Hypertension. Continue Lasix. Entresto. 5. Hyperlipidemia. Continue lipitor. 6. Alcohol abuse; complete alcohol cessation is strongly advised. on thiamine, folic acid, and multivitamin. cessation. 7. Cocaine use. UDS positive for cocaine. Complete drug abuse cessation is strongly advised. 8. DVT prophylaxis. Heparin. Monitor closely in telemetry. Upon discharge the patient will follow up with PMD .
--- NOTE | 2019-03-14 18:12 | PN ---
DATE: 03/14/2019 SUBJECTIVE: The patient's shortness of breath has improved. He is being considered for left second toe amputation for osteomyelitis. PHYSICAL EXAMINATION: VITAL SIGNS: Blood pressure 135/88, heart rate 88, temperature 98, and respirations 20. HEENT: Normocephalic. CHEST: Bibasilar rhonchi. HEART: S1 and S2. Regular. EXTREMITIES: 1+ pitting edema with left second toe cellulitis. LABORATORY DATA: Today's SMA-7: Sodium 138, potassium 4.6, chloride 97, CO2 of 33, glucose of 197, BUN 24, and creatinine 1.2. Today's white count is 12.2. Hemoglobin, hematocrit, and platelet count are within normal limits. ASSESSMENT: 1. Nonischemic cardiomyopathy. 2. Cocaine abuse. 3. Ethyl alcohol use. 4. Left second toe osteomyelitis. RECOMMENDATIONS: The case was discussed with the medical team. The patient will be resumed on Coreg 3.125 mg twice a day. Continue baby aspirin 81 mg once a day, Aldactone 25 mg once a day, Entresto 1 tablet twice a day, K-Dur 20 mEq daily, Lasix 40 mg intravenously twice a day, and thiamine 100 mg once a day. The patient can undergo left second toe amputation from the cardiac point. Raphael Arciniega MD
[2019-03-14] MEDS: guaiFENesin DM 200 mg-20 mg/10 ml UD PO PRN (21:36)
[2019-03-15 06:54] LABS: BASO # 0.03 K/mm3 (0.0-2.0); BASO % 0.3 % (0.0-3.0); EOS # 0.2 (0.0-0.7); EOS % 1.3 % (1.5-5.0); HEMOGLOBIN 16.2 g/dL (14.0-18.0); LYMPH # 2.7 (1.2-3.4); LYMPH % 23.3 % (22.0-35.0); MEAN CELL VOLUME 91.9 fl (80.0-105.0); MEAN CORPUSCULAR HEMOGLOBIN 29.7 pg (25.0-35.0); MEAN CORPUSCULAR HGB CONC 32.3 g/dl (31.0-37.0); MEAN PLATELET VOLUME 12.2 fl (7.0-11.0); MONO # 0.7 (0.1-0.6); MONO % 5.9 % (1.0-6.0); RBC 5.45 10^6/uL (3.5-6.1); RED CELL DISTRIBUTION WIDTH 14.3 % (11.5-14.5); WHITE BLOOD COUNT 11.4 10^3/uL (4.5-11.0)
[2019-03-15 07:11] LABS: ALB/GLOB RATIO 1.1 (1.1-1.8); ALBUMIN 3.7 g/dL (3.0-4.8); ALT/SGPT 48 U/L (7-56); AST/SGOT 47 U/L (17-59); BLOOD UREA NITROGEN 24 mg/dL (7-21); CALCIUM 9.1 mg/dL (8.4-10.5); GFR NON-AFRICAN AMERICAN > 60
[2019-03-15] MEDS: Multivitamin Therapeutic Tab PO SCH (08:15)
[2019-03-15] MEDS: Insulin Reg-LOW-Coverage SC SCH ×4 (08:15→21:41)
[2019-03-15] MEDS: Potassium Chloride 20 mEq ER Tab PO SCH (08:15)
--- NOTE | 2019-03-15 09:06 | CP.PCM.PN ---
<Felicitas Hickey - Last Filed: 03/15/19 13:28> Subjective - Date & Time of Evaluation Date of Evaluation: 03/15/19 Time of Evaluation: 09:05 - Subjective Subjective: Podiatry Progress Note: Dr. Weir 53M patient seen and examined at bedside for L 2nd digit callus with underlying OM. Plan for OR tomorrow at 10:00 am for distal digital amputation. Patient aware of plan for surgery including risks and benefit to surgical procedure. He denies nausea/vomiting/fever/shortness of breath. Objective - Vital Signs/Intake and Output Vital Signs (last 24 hours): Temp Pulse Resp BP Pulse Ox 97.6 F 76 20 122/88 92 L 03/15/19 06:00 03/15/19 06:00 03/15/19 06:00 03/15/19 06:00 03/15/19 06:00 Intake and Output: 03/15/19 03/15/19 06:59 18:59 Intake Total 780 Output Total 1400 Balance -620 - Medications Medications: Current Medications Atorvastatin Calcium (Lipitor) 40 mg PO DIN [facility] Last Admin: 03/14/19 17:43 Dose: 40 mg Carvedilol (Coreg) 3.125 mg PO BID [facility] Last Admin: 03/14/19 17:43 Dose: 3.125 mg Dextrose (Dextrose 50% Inj) 0 ml IV STAT PRN; Protocol PRN Reason: Hypoglycemia Protocol Folic Acid (Folic Acid) 1 mg PO DAILY [facility] Last Admin: 03/14/19 09:26 Dose: 1 mg Furosemide (Lasix) 40 mg IVP 0600,1800 [facility] Last Admin: 03/15/19 05:58 Dose: 40 mg Glipizide (Glucotrol) 10 mg PO DAILY [facility] Last Admin: 03/14/19 09:26 Dose: 10 mg Guaifenesin/Dextromethorphan (Robitussin Dm) 10 ml PO Q4H PRN PRN Reason: Cough Last Admin: 03/14/19 21:36 Dose: 10 ml Dextrose (Dextrose 5% In Water 1000 Ml) 1,000 mls @ 0 mls/hr IV .Q0M PRN; Pro tocol PRN Reason: Hypoglycemia Protocol Insulin Human Regular (Humulin R Low) 0 units SC ACHS [facility]; Protocol Last Admin: 03/15/19 08:15 Dose: 1 unit Metformin HCl (Glucophage) 1,000 mg PO BID [facility] Last Admin: 03/14/19 17:43 Dose: 1,000 mg Multivitamins (Thera Tab) 1 tab PO 0800 [facility] Last Admin: 03/15/19 08:15 Dose: 1 tab Potassium Chloride (K-Dur 20 Meq Er Tab) 20 meq PO BRK [facility] Last Admin: 03/15/19 08:15 Dose: 20 meq Sacubitril/Valsartan (Entresto 24 Mg-26 Mg Tablet) 1 each PO BID [facility] Last Admin: 03/14/19 17:43 Dose: 1 each Spironolactone (Aldactone) 25 mg PO DAILY [facility] Last Admin: 03/14/19 09:25 Dose: 25 mg Thiamine HCl (Vitamin B1 Tab) 100 mg PO DAILY [facility] Last Admin: 03/14/19 09:27 Dose: 100 mg - Labs Labs: 03/15/19 06:15 03/15/19 06:15 PT 12.6 SECONDS (9.4-12.5) H 03/10/19 14:00 INR 1.14 03/10/19 14:00 APTT 30.1 Seconds (26.9-38.3) 03/10/19 14:00 - Constitutional Appears: Non-toxic, No Acute Distress - Head Exam Head Exam: ATRAUMATIC, NORMOCEPHALIC - Eye Exam Eye Exam: Normal appearance - Extremities Exam Additional comments: Vascular: DP/PT 2/4, CFT < 3seconds, TG warm to warm, no edema appreciated to foot, + edema to second digit Ortho: No pain with palpation of callus, MMT 5/5, hammertoe deformity of second digit b/l Neuro: Gross sensation intact, protective sensation diminished Derm: Callus appreciated to distal aspect of 2nd digit, no open lesions, no drainage, no tunneling, no tracking, no erythema, no clinical signs of infection. - Neurological Exam Neurological Exam: Alert, Awake, Oriented x3 - Psychiatric Exam Psychiatric exam: Normal Affect, Normal Mood - Skin Skin Exam: Warm Assessment and Plan - Assessment and Plan (Free Text) Assessment: 53M patient with left 2nd digit callus with underlying OM, plan for OR Plan: Patient seen and examined with Dr. Carmella CHRISTIANSON Left foot x-rays ordered; OM of second digit distal phalanx Plan for OR tomorrow at 10:00am for L 2nd digt distal amputation MRI taken; read pending F/u vascular studies Please medically optimize patient NPO after midnight Cardiac risk assessment obtained and in the chart <Bj Weir - Last Filed: 03/16/19 09:36> Objective - Vital Signs/Intake and Output Vital Signs (last 24 hours): Temp Pulse Resp BP Pulse Ox 98 F 20 L 133 H 118/76 92 L 03/16/19 00:01 03/16/19 00:01 03/16/19 00:01 03/16/19 06:13 03/15/19 06:00 Intake and Output: 03/16/19 03/16/19 06:59 18:59 Intake Total 1580 Output Total 2125 Balance -545 - Medications Medications: Current Medications Atorvastatin Calcium (Lipitor) 40 mg PO DIN [facility] Last Admin: 03/15/19 18:33 Dose: 40 mg Benzonatate (Tessalon Perles) 100 mg PO TID [facility] Last Admin: 03/15/19 18:29 Dose: 100 mg Carvedilol (Coreg) 3.125 mg PO BID [facility] Last Admin: 03/15/19 18:33 Dose: 3.125 mg Dextrose (Dextrose 50% Inj) 0 ml IV STAT PRN; Protocol PRN Reason: Hypoglycemia Protocol Folic Acid (Folic Acid) 1 mg PO DAILY [facility] Last Admin: 03/15/19 10:38 Dose: 1 mg Furosemide (Lasix) 40 mg IVP 0600,1800 [facility] Last Admin: 03/16/19 06:13 Dose: 40 mg Glipizide (Glucotrol) 10 mg PO DAILY [facility] Last Admin: 03/15/19 10:38 Dose: 10 mg Guaifenesin/Codeine Phosphate (Robitussin W/Codeine) 5 ml PO Q4H PRN PRN Reason: Cough and congestion Dextrose (Dextrose 5% In Water 1000 Ml) 1,000 mls @ 0 mls/hr IV .Q0M PRN; Protocol PRN Reason: Hypoglycemia Protocol Insulin Human Regular (Humulin R Low) 0 units SC ACHS [facility]; Protocol Last Admin: 03/16/19 08:05 Dose: Not Given Metformin HCl (Glucophage) 1,000 mg PO BID [facility] Last Admin: 03/15/19 18:29 Dose: 1,000 mg Multivitamins (Thera Tab) 1 tab PO 0800 [facility] Last Admin: 03/16/19 08:05 Dose: Not Given Potassium Chloride (K-Dur 20 Meq Er Tab) 20 meq PO BRK [facility] Last Admin: 03/16/19 08:05 Dose: Not Given Sacubitril/Valsartan (Entresto 24 Mg-26 Mg Tablet) 1 each PO BID [facility] Last Admin: 03/15/19 18:31 Dose: 1 each Spironolactone (Aldactone) 25 mg PO DAILY [facility] Last Admin: 03/15/19 10:38 Dose: 25 mg Thiamine HCl (Vitamin B1 Tab) 100 mg PO DAILY [facility] Last Admin: 03/15/19 10:38 Dose: 100 mg - Labs Labs: 03/16/19 06:30 03/16/19 06:30 PT 12.6 SECONDS (9.4-12.5) H 03/10/19 14:00 INR 1.14 03/10/19 14:00 APTT 30.1 Seconds (26.9-38.3) 03/10/19 14:00 Attending/Attestation - Attestation I have personally seen and examined this patient.: Yes I have fully participated in the care of the patient.: Yes I have reviewed all pertinent clinical information, including history, physical exam and plan: Yes
[2019-03-15] MEDS: SACUBITRIL 24mg/VALSARTAN 26mg tab PO SCH ×2 (10:38→18:31)
--- NOTE | 2019-03-15 11:38 | CP.PCM.PN ---
<Atilio Shore - Last Filed: 03/15/19 15:12> Subjective - Date & Time of Evaluation Date of Evaluation: 03/15/19 Time of Evaluation: 06:10 - Subjective Subjective: Atilio Shore DO PGY1 Hospitalist Progress Note for Dr Kraft Patient seen and examined at bedside. Patient is tolerating regular diet, urinating. Improved SOB. Still having dry cough not improved with robitussin. Denies chest pain, palpitations. Objective - Vital Signs/Intake and Output Vital Signs (last 24 hours): Temp Pulse Resp BP Pulse Ox 97.6 F 81 20 119/83 92 L 03/15/19 06:00 03/15/19 10:38 03/15/19 06:00 03/15/19 10:38 03/15/19 06:00 Intake and Output: 03/15/19 03/15/19 06:59 18:59 Intake Total 780 Output Total 1400 Balance -620 - Medications Medications: Current Medications Atorvastatin Calcium (Lipitor) 40 mg PO DIN [facility] Last Admin: 03/14/19 17:43 Dose: 40 mg Benzonatate (Tessalon Perles) 100 mg PO TID [facility] Carvedilol (Coreg) 3.125 mg PO BID [facility] Last Admin: 03/15/19 10:38 Dose: 3.125 mg Dextrose (Dextrose 50% Inj) 0 ml IV STAT PRN; Protocol PRN Reason: Hypoglycemia Protocol Folic Acid (Folic Acid) 1 mg PO DAILY [facility] Last Admin: 03/15/19 10:38 Dose: 1 mg Furosemide (Lasix) 40 mg IVP 0600,1800 [facility] Last Admin: 03/15/19 05:58 Dose: 40 mg Glipizide (Glucotrol) 10 mg PO DAILY [facility] Last Admin: 03/15/19 10:38 Dose: 10 mg Dextrose (Dextrose 5% In Water 1000 Ml) 1,000 mls @ 0 mls/hr IV .Q0M PRN; Protocol PRN Reason: Hypoglycemia Protocol Insulin Human Regular (Humulin R Low) 0 units SC ACHS [facility]; Protocol Last Admin: 03/15/19 08:15 Dose: 1 unit Metformin HCl (Glucophage) 1,000 mg PO BID [facility] Last Admin: 03/15/19 10:38 Dose: 1,000 mg Multivitamins (Thera Tab) 1 tab PO 0800 [facility] Last Admin: 03/15/19 08:15 Dose: 1 tab Potassium Chloride (K-Dur 20 Meq Er Tab) 20 meq PO BRK [facility] Last Admin: 03/15/19 08:15 Dose: 20 meq Sacubitril/Valsartan (Entresto 24 Mg-26 Mg Tablet) 1 each PO BID [facility] Last Admin: 03/15/19 10:38 Dose: 1 each Spironolactone (Aldactone) 25 mg PO DAILY [facility] Last Admin: 03/15/19 10:38 Dose: 25 mg Thiamine HCl (Vitamin B1 Tab) 100 mg PO DAILY [facility] Last Admin: 03/15/19 10:38 Dose: 100 mg - Labs Labs: 03/15/19 06:15 03/15/19 06:15 PT 12.6 SECONDS (9.4-12.5) H 03/10/19 14:00 INR 1.14 03/10/19 14:00 APTT 30.1 Seconds (26.9-38.3) 03/10/19 14:00 - Constitutional Appears: Well, Non-toxic, No Acute Distress - Head Exam Head Exam: ATRAUMATIC, NORMAL INSPECTION, NORMOCEPHALIC - Eye Exam Eye Exam: EOMI, Normal appearance, PERRL Pupil Exam: NORMAL ACCOMODATION, PERRL - ENT Exam ENT Exam: Mucous Membranes Moist - Neck Exam Neck Exam: Full ROM, Normal Inspection. absent: Lymphadenopathy - Respiratory Exam Respiratory Exam: Clear to Ausculation Bilateral, NORMAL BREATHING PATTERN - Cardiovascular Exam Cardiovascular Exam: REGULAR RHYTHM, +S1, +S2. absent: JVD, RRR, Murmur - GI/Abdominal Exam GI & Abdominal Exam: Soft, Normal Bowel Sounds. absent: Tenderness - Extremities Exam Extremities Exam: Full ROM, Normal Capillary Refill. absent: Pedal Edema - Back Exam Back Exam: NORMAL INSPECTION - Neurological Exam Neurological Exam: Alert, Awake, CN II-XII Intact, Normal Gait, Oriented x3 - Skin Skin Exam: Dry Additional comments: left distal phanlax callus formation planter callus formation on left first metatarsal chronic nail changes b/l feet Assessment and Plan - Assessment and Plan (Free Text) Assessment: 53 y/o male with PMH of HTN, DM, HLD, CHF with low EF admitted for CHF exacerbation. Found to have osteomyelitis of left 2nd toe Plan: Left 2nd phalanx osteomyelitis: -patient afebrile, slight leukocytosis that is improving, no open wound/drainage/tunnels. Just callus formation -X-Ray left foot: consistent with osteomyelitis -patient is going for OR tomorrow for amputation -f/u MRI left foot -f/u LE -local wound care -podiatry following Non-ischemic cardiomyopathy: -likely due to alcohol/drug abuse -Echo EF 22% LV function severly impaired, global hypokinesia. Compared to EF 22% in 2016 -continue coreg, spironolactone, entresto, KCl -not candidate for AICD in the setting of drug abuse -cardio following, Dr Aguilar Resolved CHF exacerbation: -EKG: NSR @86, with PVC, QTc 466 on admission -CXR: mild cardiomegaly, no pulm vascular congestion -Trops negative x3 -BNP 2430 on admission -CT chest 03/10: unremarkable -continue lasix 40 bid -continue KCl 20 meq -continue tessalon perles for cough -daily weight -strict I/0. monitor UO -PT/INR 12.6/1.14 HTN/HLD: -lipid profile: TG 211, HDL 23 -continue lipitor, asa -TSH, T4 wnl DM2: -A1C 9.5 -accuchecks -ISS-L -continue home metformin, glipizide -diabetic education -dietitian referral h/o alcohol use: -UDS: positive for cocaine -UA negative -continue MVI, folic acid, thiamine PPX: -DVT: heparin sq, SCD -GI: not indicated -HHD -PT: recommend home d/c with outpatient cardiac rehab Case reviewed and plan discussed with Dr Abena Shore, DO <Freida Kraft - Last Filed: 03/15/19 16:40> Objective - Vital Signs/Intake and Output Vital Signs (last 24 hours): Temp Pulse Resp BP Pulse Ox 97.6 F 81 20 119/83 92 L 03/15/19 06:00 03/15/19 10:38 03/15/19 06:00 03/15/19 10:38 03/15/19 06:00 Intake and Output: 03/15/19 03/15/19 06:59 18:59 Intake Total 780 Output Total 1400 Balance -620 - Medications Medications: Current Medications Atorvastatin Calcium (Lipitor) 40 mg PO DIN [facility] Last Admin: 03/14/19 17:43 Dose: 40 mg Benzonatate (Tessalon Perles) 100 mg PO TID [facility] Last Admin: 03/15/19 13:47 Dose: 100 mg Carvedilol (Coreg) 3.125 mg PO BID [facility] Last Admin: 03/15/19 10:38 Dose: 3.125 mg Dextrose (Dextrose 50% Inj) 0 ml IV STAT PRN; Protocol PRN Reason: Hypoglycemia Protocol Folic Acid (Folic Acid) 1 mg PO DAILY [facility] Last Admin: 03/15/19 10:38 Dose: 1 mg Furosemide (Lasix) 40 mg IVP 0600,1800 [facility] Last Admin: 03/15/19 05:58 Dose: 40 mg Glipizide (Glucotrol) 10 mg PO DAILY [facility] Last Admin: 03/15/19 10:38 Dose: 10 mg Dextrose (Dextrose 5% In Water 1000 Ml) 1,000 mls @ 0 mls/hr IV .Q0M PRN; Protocol PRN Reason: Hypoglycemia Protocol Insulin Human Regular (Humulin R Low) 0 units SC ACHS [facility]; Protocol Last Admin: 03/15/19 12:50 Dose: 1 unit Metformin HCl (Glucophage) 1,000 mg PO BID [facility] Last Admin: 03/15/19 10:38 Dose: 1,000 mg Multivitamins (Thera Tab) 1 tab PO 0800 [facility] Last Admin: 03/15/19 08:15 Dose: 1 tab Potassium Chloride (K-Dur 20 Meq Er Tab) 20 meq PO BRK [facility] Last Admin: 03/15/19 08:15 Dose: 20 meq Sacubitril/Valsartan (Entresto 24 Mg-26 Mg Tablet) 1 each PO BID [facility] Last Admin: 03/15/19 10:38 Dose: 1 each Spironolactone (Aldactone) 25 mg PO DAILY [facility] Last Admin: 03/15/19 10:38 Dose: 25 mg Thiamine HCl (Vitamin B1 Tab) 100 mg PO DAILY [facility] Last Admin: 03/15/19 10:38 Dose: 100 mg - Labs Labs: 03/15/19 06:15 03/15/19 06:15 PT 12.6 SECONDS (9.4-12.5) H 03/10/19 14:00 INR 1.14 03/10/19 14:00 APTT 30.1 Seconds (26.9-38.3) 03/10/19 14:00 Attending/Attestation - Attestation I have personally seen and examined this patient.: Yes I have fully participated in the care of the patient.: Yes I have reviewed all pertinent clinical information, including history, physical exam and plan: Yes Notes (Text): 03/15/19 16:36 Attending note; Patient seen and examined with resident. Patient is alert and awake. Denies any chest pain, shortness of breath. Complaining of cough. No significant sputum production. Denies any fevers, chills . Denies any abdominal pain, nausea, vomiting . Patient is a 53 year old male with past medical history significant for hypertension, noninsulin dependent DM2, hyperlipidemia, and chronic systolic CHF (last EF in 2016 was 22%) that presented to the emergency room with progressively worse shortness of breath over the past 2 weeks. 1. Shortness of breath/ acute on chronic systolic CHF exacerbation. 2D echo in 2016 showed EF of 22%. Now EF of approximately 19% left ventricle mildly elevated, systolic function is severely impaired, global hypokinesis of left ventrile, right ventricle is mildly dilated and severely hypokinetic, moderate tricuspid regurgitation. Cardiology evaluation appreciated . Cozaar stopped and started on Entresto. patient is in negative balance. No edema noted. Lasix dosage decreased. continue ASA and aldactone. Continue strict I's and O's. 2. DM2. HgbA1C 9.5. dietary education given. Dietitian evaluation appreciated. Started on glipizide and metformin. Fingerstick is improving. continue to monitor accuchecks. Diet and exercise discussed with patient. 3. Left second toe ulceration. Chronic. No drainage noted. Podiatry consulted for Local wound care. X-ray showed left 2 nd distal toe osteomyelitis. MRI pending. Plan for left second toe amputation tomorrow at 10 AM. N.p.o. past midnight. Patient is stable from cardiac point for surgery. Patient informed about the plan. 4. Hypertension. Continue Lasix. Entresto. 5. Hyperlipidemia. Continue lipitor. 6. Alcohol abuse; complete alcohol cessation is strongly advised. on thiamine, folic acid, and multivitamin. cessation. 7. Cocaine use. UDS positive for cocaine. Complete drug abuse cessation is strongly advised. 8. DVT prophylaxis. Heparin. Monitor closely in telemetry. Possible discharge home tomorrow if clinically stable after toe amputation. Upon discharge the patient will follow up with PMD .
--- NOTE | 2019-03-15 14:08 | MRI ---
MRI left forefoot HISTORY: Left 2nd digit osteomyelitis. COMPARISON: 03/13/2019 Technique: Multi-echo multiplanar sequences were performed through the left forefoot without the use of intravenous contrast. Findings: Extensive motion artifact. In addition, there is prominent failure of fat suppression at the level of the 1st through 4th phalanges. Essentially this is a nondiagnostic study. Repeat study is recommended. Alternatively, correlation with three-phase bone scan may be helpful if clinically indicated. In correlation with the plain x-ray, there is cortical irregularity seen at the level of the 2nd distal phalanx with increased STIR signal as demonstrated on series 14, image 10 as well as associated decreased T1 signal. These findings may be the sequelae of acute osteomyelitis. Clinical correlation. Additional questionable adjacent reactive edema at the head of the 2nd middle phalanx, nonspecific. Clinical correlation. Again repeat study may be helpful. Moderate hallux valgus deformity. Subchondral cyst formation seen at the head of the 1st metatarsal bone. Prominent degenerative changes at the midfoot with prominent focal decreased T1 signal with increased STIR signal seen at the navicular bone which may represent prominent osteochondral change. Additional prominent degenerative changes of the talonavicular joint space. Markedly limited evaluation of the remainder of the visualized osseous structures. As suggested above repeat study is recommended if clinically indicated. Impression: 1. Extensive motion artifact. In addition, there is prominent failure of fat suppression at the level of the 1st through 4th phalanges. Essentially this is a nondiagnostic study. Repeat study is recommended. Alternatively, correlation with three-phase bone scan may be helpful if clinically indicated. 2. In correlation with the plain x-ray, there is cortical irregularity seen at the level of the 2nd distal phalanx with increased STIR signal as demonstrated on series 14, image 10 as well as associated decreased T1 signal. These findings may be the sequelae of acute osteomyelitis. Clinical correlation. Additional questionable adjacent reactive edema at the head of the 2nd middle phalanx, nonspecific. Clinical correlation. Again repeat study may be helpful. 3. Moderate hallux valgus deformity. Subchondral cyst formation seen at the head of the 1st metatarsal bone. 4. Prominent degenerative changes at the midfoot with prominent focal decreased T1 signal with increased STIR signal seen at the navicular bone which may represent prominent osteochondral change. Additional prominent degenerative changes of the talonavicular joint space. 5. Markedly limited evaluation of the remainder of the visualized osseous structures. As suggested above repeat study is recommended if clinically indicated.
--- NOTE | 2019-03-15 18:14 | US ---
PROCEDURE: Lower extremity AZIZA exam HISTORY: Peripheral vascular disease with pain and ulceration. Diabetes.. PHYSICIAN(S): Ky Zendejas MD. FINDINGS: The resting AZIZA's are normal: right, 1.12and left, 1.10. The brachial systolic pressures are symmetric. The low thigh pressures and waveforms are relatively normal. The calf PVR waveforms augment normally. No significant gradients are noted across the thighs. The ankle and metatarsal waveforms are relatively normal and symmetric. No significant pressure gradients are noted across the lower legs. IMPRESSION: 1. Normal AZIZA and PVR examination at rest.
[2019-03-16 07:08] LABS: BASO # 0.02 K/mm3 (0.0-2.0); BASO % 0.2 % (0.0-3.0); EOS # 0.1 (0.0-0.7); EOS % 1.2 % (1.5-5.0); HEMOGLOBIN 16.3 g/dL (14.0-18.0); LYMPH % 19.3 % (22.0-35.0); MEAN CELL VOLUME 91.8 fl (80.0-105.0); MEAN CORPUSCULAR HEMOGLOBIN 29.7 pg (25.0-35.0); MEAN CORPUSCULAR HGB CONC 32.4 g/dl (31.0-37.0); MONO # 0.7 (0.1-0.6); MONO % 7.3 % (1.0-6.0); RBC 5.48 10^6/uL (3.5-6.1); WHITE BLOOD COUNT 10.1 10^3/uL (4.5-11.0)
[2019-03-16 07:26] LABS: ALB/GLOB RATIO 1.1 (1.1-1.8); ALT/SGPT 54 U/L (7-56); AST/SGOT 53 U/L (17-59); BLOOD UREA NITROGEN 29 mg/dL (7-21); CALCIUM 9.3 mg/dL (8.4-10.5); GFR NON-AFRICAN AMERICAN > 60
[2019-03-16] MEDS: Potassium Chloride 20 mEq ER Tab PO SCH (08:05)
[2019-03-16] MEDS: Insulin Reg-LOW-Coverage SC SCH ×4 (08:05→21:57)
[2019-03-16] MEDS: Multivitamin Therapeutic Tab PO SCH ×2 (08:05→13:13)
[2019-03-16] MEDS ORDERED: guaiFENesin-Codeine 100-10mg/5ml Syrup (5 ml) UD PO PRN (09:33)
[2019-03-16] MEDS: SACUBITRIL 24mg/VALSARTAN 26mg tab PO SCH ×2 (09:56→17:24)
[2019-03-16] MEDS ORDERED: Lidocaine 2% Inj (20ml) ONE (09:56)
[2019-03-16] MEDS ORDERED: Bupivacaine 0.5% 50 ML IJ ONE (09:56)
[2019-03-16] MEDS ORDERED: Midazolam 2 MG/2 ML VIAL ONE (10:26)
[2019-03-16] MEDS ORDERED: HYDROmorphone 0.5 mg/0.5 ml ISec IVP PRN (11:09)
--- NOTE | 2019-03-16 11:09 | PCM.SURG1 ---
Surgeon's Initial Post Op Note - Surgeon's Notes Surgeon: Dr. Weir DPM Ceiling Insulation Blower: Dr. Felicitas Hickey PGY1 Type of Anesthesia: IV Sedation, Local Anesthesia Administered By: Dr. Smith Pre-Operative Diagnosis: Left second digit OM Operative Findings: See dictation. I: 10 cc of 1:1 mix of 0.5% marcaine plain, 2% lidocaine plain. M: 3-0 Vicryl, 3-0 Nylon Post-Operative Diagnosis: Same Operation Performed: Left second digit partial amputation Specimen/Specimens Removed: Left second digit Estimated Blood Loss: EBL {In ML}: 1 Blood Products Given: N/A Drains Used: No Drains Post-Op Condition: Good Date of Surgery/Procedure: 03/16/19 Time of Surgery/Procedure: 11:09
[2019-03-16] MEDS ORDERED: Oxycodone/Acetaminophen 5/325 mg Tab PO PRN (11:10)
[2019-03-16] MEDS ORDERED: Sodium Chloride 0.9% 1,000 ML IV SCH (11:15)
--- NOTE | 2019-03-16 13:15 | CP.PCM.PN ---
<Atilio Shore - Last Filed: 03/16/19 16:40> Subjective - Date & Time of Evaluation Date of Evaluation: 03/16/19 Time of Evaluation: 06:40 - Subjective Subjective: Atilio Shore DO PGY1 Hospitalist Progress Note for Dr Kraft Patient seen and examined at bedside. Still having dry cough. Denies chest pain, palpitations. No acute events overnight. Objective - Vital Signs/Intake and Output Vital Signs (last 24 hours): Temp Pulse Resp BP Pulse Ox 97.2 F L 75 19 100/61 99 03/16/19 12:25 03/16/19 12:25 03/16/19 12:25 03/16/19 12:25 03/16/19 11:40 Intake and Output: 03/16/19 03/16/19 06:59 18:59 Intake Total 1580 Output Total 2125 Balance -545 - Medications Medications: Current Medications Acetaminophen (Tylenol 325mg Tab) 650 mg PO Q4H PRN PRN Reason: Pain, Mild (1-3) Aspirin (Ecotrin) 81 mg PO DAILY [facility] Atorvastatin Calcium (Lipitor) 40 mg PO DIN [facility] Last Admin: 03/15/19 18:33 Dose: 40 mg Benzonatate (Tessalon Perles) 100 mg PO TID [facility] Last Admin: 03/16/19 09:56 Dose: Not Given Carvedilol (Coreg) 3.125 mg PO BID [facility] Last Admin: 03/16/19 09:55 Dose: 3.125 mg Dextrose (Dextrose 50% Inj) 0 ml IV STAT PRN; Protocol PRN Reason: Hypoglycemia Protocol Folic Acid (Folic Acid) 1 mg PO DAILY [facility] Last Admin: 03/16/19 09:56 Dose: Not Given Furosemide (Lasix) 40 mg IVP 0600,1800 [facility] Last Admin: 03/16/19 06:13 Dose: 40 mg Glipizide (Glucotrol) 10 mg PO DAILY [facility] Last Admin: 03/16/19 09:56 Dose: Not Given Guaifenesin/Codeine Phosphate (Robitussin W/Codeine) 5 ml PO Q4H PRN PRN Reason: Cough and congestion Heparin Sodium (Porcine) (Heparin) 5,000 units SC Q8 [facility]; Protocol Hydromorphone HCl (Dilaudid) 0.5 mg IVP Q15M PRN PRN Reason: Pain, Moderate/Severe (4-10) Dextrose (Dextrose 5% In Water 1000 Ml) 1,000 mls @ 0 mls/hr IV .Q0M PRN; Protocol PRN Reason: Hypoglycemia Protocol Sodium Chloride (Sodium Chloride 0.9%) 1,000 mls @ 75 mls/hr IV .[id number] [facility] Stop: 03/16/19 13:16 Insulin Human Regular (Humulin R Low) 0 units SC ACHS [facility]; Protocol Last Admin: 03/16/19 12:00 Dose: Not Given Metformin HCl (Glucophage) 1,000 mg PO BID [facility] Last Admin: 03/16/19 09:56 Dose: Not Given Multivitamins (Thera Tab) 1 tab PO 0800 [facility] Last Admin: 03/16/19 08:05 Dose: Not Given Oxycodone/Acetaminophen (Percocet 5/325 Mg Tab) 1 tab PO Q4H PRN PRN Reason: Pain, moderate (4-7) Stop: 03/19/19 11:11 Oxycodone/Acetaminophen (Percocet 5/325 Mg Tab) 2 tab PO Q4H PRN PRN Reason: Pain, severe (8-10) Stop: 03/19/19 11:11 Potassium Chloride (K-Dur 20 Meq Er Tab) 20 meq PO BRK [facility] Last Admin: 03/16/19 08:05 Dose: Not Given Sacubitril/Valsartan (Entresto 24 Mg-26 Mg Tablet) 1 each PO BID [facility] Last Admin: 03/16/19 09:56 Dose: Not Given Spironolactone (Aldactone) 25 mg PO DAILY [facility] Last Admin: 03/16/19 09:53 Dose: Not Given Thiamine HCl (Vitamin B1 Tab) 100 mg PO DAILY [facility] Last Admin: 03/16/19 09:56 Dose: Not Given - Labs Labs: 03/16/19 06:30 03/16/19 06:30 PT 12.6 SECONDS (9.4-12.5) H 03/10/19 14:00 INR 1.14 03/10/19 14:00 APTT 30.1 Seconds (26.9-38.3) 03/10/19 14:00 - Additional Findings Additional findings: - Constitutional Appears: Well, Non-toxic, No Acute Distress - Head Exam Head Exam: ATRAUMATIC, NORMAL INSPECTION, NORMOCEPHALIC - Eye Exam Eye Exam: EOMI, Normal appearance, PERRL Pupil Exam: NORMAL ACCOMODATION, PERRL - ENT Exam ENT Exam: Mucous Membranes Moist - Neck Exam Neck Exam: Full ROM, Normal Inspection. absent: Lymphadenopathy - Respiratory Exam Respiratory Exam: Clear to Ausculation Bilateral, NORMAL BREATHING PATTERN - Cardiovascular Exam Cardiovascular Exam: REGULAR RHYTHM, +S1, +S2. absent: JVD, RRR, Murmur - GI/Abdominal Exam GI & Abdominal Exam: Soft, Normal Bowel Sounds. absent: Tenderness - Extremities Exam Extremities Exam: Full ROM, Normal Capillary Refill. absent: Pedal Edema - Back Exam Back Exam: NORMAL INSPECTION - Neurological Exam Neurological Exam: Alert, Awake, CN II-XII Intact, Normal Gait, Oriented x3 - Skin Skin Exam: Dry Additional comments: chronic nail changes b/l feet Assessment and Plan - Assessment and Plan (Free Text) Assessment: 53 y/o male with PMH of HTN, DM, HLD, CHF with low EF admitted for CHF exacerbation. Found to have osteomyelitis of left 2nd toe Plan: Left 2nd phalanx osteomyelitis: -s/p left second digit partial amputation -dilaudid prn for severe pain -X-Ray left foot 03/13: consistent with osteomyelitis -MRI left foot: sequelae of acute osteomyelitis -LE US: normal AZIZA and PVR exam at rest -post op local wound care -podiatry following Non-ischemic cardiomyopathy: -likely due to alcohol/drug abuse -Echo EF 22% LV function severly impaired, global hypokinesia. Compared to EF 22% in 2016 -continue coreg, spironolactone, entresto, KCl -not candidate for AICD in the setting of drug abuse -cardio following, Dr Aguilar Resolved CHF exacerbation: -symptoms of SOB, LE edema improved -EKG: NSR @86, with PVC, QTc 466 on admission -CXR: mild cardiomegaly, no pulm vascular congestion -Trops negative x3 -BNP 2430 on admission -CT chest 03/10: unremarkable -continue lasix 40 bid -continue robitussin w/codeine for cough HTN/HLD: -lipid profile: TG 211, HDL 23 -continue lipitor, asa -TSH, T4 wnl DM2: -A1C 9.5 -accuchecks -ISS-L -continue home metformin, glipizide -diabetic education -dietitian referral h/o alcohol use: -UDS: positive for cocaine -UA negative -continue MVI, folic acid, thiamine PPX: -DVT: heparin sq, SCD -GI: not indicated -HHD -PT: recommend home d/c with outpatient cardiac rehab Case reviewed and plan discussed with Dr Abena Shore, DO <Freida Kraft - Last Filed: 03/16/19 17:26> Objective - Vital Signs/Intake and Output Vital Signs (last 24 hours): Temp Pulse Resp BP Pulse Ox 97.2 F L 82 19 100/61 97 03/16/19 12:25 03/16/19 14:02 03/16/19 12:25 03/16/19 12:25 03/16/19 12:10 Intake and Output: 03/16/19 03/16/19 06:59 18:59 Intake Total 1580 Output Total 2125 Balance -545 - Medications Medications: Current Medications Acetaminophen (Tylenol 325mg Tab) 650 mg PO Q4H PRN PRN Reason: Pain, Mild (1-3) Aspirin (Ecotrin) 81 mg PO DAILY [facility] Atorvastatin Calcium (Lipitor) 40 mg PO DIN [facility] Last Admin: 03/15/19 18:33 Dose: 40 mg Benzonatate (Tessalon Perles) 100 mg PO TID [facility] Last Admin: 03/16/19 13:13 Dose: 100 mg Carvedilol (Coreg) 3.125 mg PO BID [facility] Last Admin: 03/16/19 09:55 Dose: 3.125 mg Dextrose (Dextrose 50% Inj) 0 ml IV STAT PRN; Protocol PRN Reason: Hypoglycemia Protocol Folic Acid (Folic Acid) 1 mg PO DAILY [facility] Last Admin: 03/16/19 13:13 Dose: 1 mg Furosemide (Lasix) 40 mg IVP 0600,1800 [facility] Last Admin: 03/16/19 06:13 Dose: 40 mg Glipizide (Glucotrol) 10 mg PO DAILY [facility] Last Admin: 03/16/19 09:56 Dose: Not Given Guaifenesin/Codeine Phosphate (Robitussin W/Codeine) 5 ml PO Q4H PRN PRN Reason: Cough and congestion Heparin Sodium (Porcine) (Heparin) 5,000 units SC Q8 [facility]; Protocol Last Admin: 03/16/19 13:40 Dose: 5,000 units Hydromorphone HCl (Dilaudid) 0.5 mg IVP Q15M PRN PRN Reason: Pain, Moderate/Severe (4-10) Dextrose (Dextrose 5% In Water 1000 Ml) 1,000 mls @ 0 mls/hr IV .Q0M PRN; Protocol PRN Reason: Hypoglycemia Protocol Insulin Human Regular (Humulin R Low) 0 units SC ACHS [facility]; Protocol Last Admin: 03/16/19 12:00 Dose: Not Given Metformin HCl (Glucophage) 1,000 mg PO BID [facility] Last Admin: 03/16/19 09:56 Dose: Not Given Multivitamins (Thera Tab) 1 tab PO 0800 [facility] Last Admin: 03/16/19 13:13 Dose: 1 tab Oxycodone/Acetaminophen (Percocet 5/325 Mg Tab) 1 tab PO Q4H PRN PRN Reason: Pain, moderate (4-7) Stop: 03/19/19 11:11 Oxycodone/Acetaminophen (Percocet 5/325 Mg Tab) 2 tab PO Q4H PRN PRN Reason: Pain, severe (8-10) Stop: 03/19/19 11:11 Potassium Chloride (K-Dur 20 Meq Er Tab) 20 meq PO BRK [facility] Last Admin: 03/16/19 08:05 Dose: Not Given Sacubitril/Valsartan (Entresto 24 Mg-26 Mg Tablet) 1 each PO BID [facility] Last Admin: 03/16/19 09:56 Dose: Not Given Spironolactone (Aldactone) 25 mg PO DAILY [facility] Last Admin: 03/16/19 09:53 Dose: Not Given Thiamine HCl (Vitamin B1 Tab) 100 mg PO DAILY [facility] Last Admin: 03/16/19 13:13 Dose: 100 mg - Labs Labs: 03/16/19 06:30 03/16/19 06:30 PT 12.6 SECONDS (9.4-12.5) H 03/10/19 14:00 INR 1.14 03/10/19 14:00 APTT 30.1 Seconds (26.9-38.3) 03/10/19 14:00 Attending/Attestation - Attestation I have personally seen and examined this patient.: Yes I have fully participated in the care of the patient.: Yes I have reviewed all pertinent clinical information, including history, physical exam and plan: Yes Notes (Text): 03/16/19 17:24 Attending note; Patient seen and examined with resident. Patient is alert and awake. Denies any chest pain, shortness of breath. Complaining of cough. Denies any fevers, chills . N.p.o. for toe amputation today. Patient is a 53 year old male with past medical history significant for hypertension, noninsulin dependent DM2, hyperlipidemia, and chronic systolic CHF (last EF in 2016 was 22%) that presented to the emergency room with progressively worse shortness of breath over the past 2 weeks. 1. Shortness of breath/ acute on chronic systolic CHF exacerbation. 2D echo in 2016 showed EF of 22%. Now EF of approximately 19% left ventricle mildly elevated, systolic function is severely impaired, global hypokinesis of left ventrile, right ventricle is mildly dilated and severely hypokinetic, moderate tricuspid regurgitation. on Entresto. 2. DM2. HgbA1C 9.5. dietary education given. Dietitian evaluation appreciated. Started on glipizide and metformin. Fingerstick is improving. continue to monitor accuchecks. Diet and exercise discussed with patient. 3. Left second toe osteomyelitis ; going for toe amputation today. 4. Hypertension. Continue Lasix. Entresto. 5. Hyperlipidemia. Continue lipitor. 6. Alcohol abuse; complete alcohol cessation is strongly advised. on thiamine, folic acid, and multivitamin. cessation. 7. Cocaine use. UDS positive for cocaine. Complete drug abuse cessation is strongly advised. 8. DVT prophylaxis. Heparin. Upon discharge the patient will follow up with PMD .
--- NOTE | 2019-03-16 14:17 | RAD ---
Date of service: 03/16/2019 PROCEDURE: Left Foot Radiographs. HISTORY: s/p L 2nd digit amputation COMPARISON: 03/13/2019. Preoperative study TECHNIQUE: 3 views obtained. FINDINGS: BONES: Expected postoperative findings following amputation of the distal aspect 2nd digit. JOINTS: Normal. SOFT TISSUES: Normal. OTHER FINDINGS: None. IMPRESSION: Satisfactory postoperative status.
--- NOTE | 2019-03-16 15:18 | OP ---
PROCEDURE DATE: 03/16/2019 INDICATIONS: A 53-year-old diabetic male seen for diabetic ulceration on the distal aspect of his left second digit. The patient says he has been self treating the ulceration, which comes and goes, for the past several years. Upon x-ray and MRI, osteomyelitis was confirmed at the distal aspect of the left second toe. Treatment options were discussed with Mr. Nunes, which included 4 to 6 weeks of IV antibiotics or surgical intervention, which would amputate the distal aspect of the toe. The patient opted for left second digit amputation with full knowledge that he needs to remain off of his feet for the next 3 weeks in order for the surgical site to heal. DESCRIPTION OF PROCEDURE: Following is the procedure in detail. The patient was brought in to the operating room transported from his hospital bed onto the operating room table in a supine position. Following a period of IV sedation, approximately 10 mL of 1:1 ratio of 0.5% Marcaine and 2% lidocaine plain was infiltrated at the base of the left second digit. The foot was then scrubbed, prepped and draped in the usual aseptic manner. Attention was directed to the left second digit where there was noted to be a full-thickness ulceration at the distal aspect of the toe with exposed bone clinically evident. Utilizing a #15 blade, a racquet type incision was made over the second interphalangeal joint and wrapped around plantarly to the distal aspect of the toe. Incision was deepened with careful attention to avoid neurovascular structures. At this point, the distal aspect of the toe was disarticulated from the DIPJ and removed from the operative field. It should be noted that the distal phalanx at this time was noted to be eroded and soft when palpated. There was glistening cartilage visibly seen at the middle phalanx. Attention was directed to the head of the middle phalanx, which was resected using a double-action bone cutter. The resected region was then rasped smooth with a bone rasp and the area was flushed with copious amounts of normal sterile saline. Utilizing 3-0 Vicryl, all the wound edges were reapproximated and utilizing 3-0 Nylon, the incision site was closed with a mixture of simple and horizontal mattress technique sutures. The surgical site was then reinforced with Steri-Strips. Betadine-soaked Adaptic was used to cover the surgical area and a dry sterile dressing was applied. The patient was told that he must remain off weightbearing until further notice. A forefoot offloading shoe was ordered and should be ready for him to use tomorrow. The patient tolerated the procedure well with no complications. There was noted to be capillary filling time to all the remaining digits and after a period. The patient was transferred from the operating room to the recovery room with all vital signs stable. X-rays were ordered and all medications were resumed, which included no bathroom privileges until further notice. After a period of monitoring, the patient will be brought back to his room. Bj Weir DPM
[2019-03-16] MEDS: Oxycodone/Acetaminophen 5/325 mg Tab PO PRN (20:05)
[2019-03-17 05:56] VITALS: RESP 20; O2SAT 96
[2019-03-17 06:57] LABS: BASO # 0.02 K/mm3 (0.0-2.0); BASO % 0.2 % (0.0-3.0); EOS # 0.2 (0.0-0.7); EOS % 2.1 % (1.5-5.0); HEMOGLOBIN 15.6 g/dL (14.0-18.0); LYMPH # 2.2 (1.2-3.4); LYMPH % 24.5 % (22.0-35.0); MEAN CELL VOLUME 91.9 fl (80.0-105.0); MEAN CORPUSCULAR HEMOGLOBIN 29.3 pg (25.0-35.0); MEAN CORPUSCULAR HGB CONC 31.9 g/dl (31.0-37.0); MEAN PLATELET VOLUME 12.2 fl (7.0-11.0); MONO # 0.9 (0.1-0.6); MONO % 10.3 % (1.0-6.0); RBC 5.32 10^6/uL (3.5-6.1); RED CELL DISTRIBUTION WIDTH 14.1 % (11.5-14.5); WHITE BLOOD COUNT 9.1 10^3/uL (4.5-11.0)
[2019-03-17 07:32] LABS: ALB/GLOB RATIO 1.2 (1.1-1.8); ALBUMIN 3.9 g/dL (3.0-4.8); ALT/SGPT 52 U/L (7-56); AST/SGOT 48 U/L (17-59); BLOOD UREA NITROGEN 36 mg/dL (7-21); GFR NON-AFRICAN AMERICAN > 60
--- NOTE | 2019-03-17 08:19 | CP.PCM.PN ---
<Fleicitas Hickey - Last Filed: 03/17/19 09:32> Subjective - Date & Time of Evaluation Date of Evaluation: 03/17/19 Time of Evaluation: 08:19 - Subjective Subjective: Podiatry Progress Note: Dr. Weir 53M patient POD#1 left second digit partial amputation secondary to underlying OM. Patient resting comfortably and in NAD. He states that he had pain to the L second toe overnight, however the pain was well controlled with pain medication. He denies nausea/vomiting/fever/shortness of breath. Objective - Vital Signs/Intake and Output Vital Signs (last 24 hours): Temp Pulse Resp BP Pulse Ox 97.8 F 75 20 116/78 96 03/17/19 05:55 03/17/19 05:55 03/17/19 05:55 03/17/19 05:55 03/17/19 05:55 Intake and Output: 03/17/19 03/17/19 06:59 18:59 Intake Total 1260 Output Total 1001 Balance 259 - Medications Medications: Current Medications Acetaminophen (Tylenol 325mg Tab) 650 mg PO Q4H PRN PRN Reason: Pain, Mild (1-3) Aspirin (Ecotrin) 81 mg PO DAILY [facility] Atorvastatin Calcium (Lipitor) 40 mg PO DIN [facility] Last Admin: 03/16/19 17:24 Dose: 40 mg Benzonatate (Tessalon Perles) 100 mg PO TID [facility] Last Admin: 03/16/19 17:24 Dose: 100 mg Carvedilol (Coreg) 3.125 mg PO BID [facility] Last Admin: 03/16/19 17:25 Dose: 3.125 mg Dextrose (Dextrose 50% Inj) 0 ml IV STAT PRN; Protocol PRN Reason: Hypoglycemia Protocol Folic Acid (Folic Acid) 1 mg PO DAILY [facility] Last Admin: 03/16/19 13:13 Dose: 1 mg Furosemide (Lasix) 40 mg IVP 0600,1800 [facility] Last Admin: 03/17/19 05:20 Dose: 40 mg Glipizide (Glucotrol) 10 mg PO DAILY [facility] Last Admin: 03/16/19 09:56 Dose: Not Given Guaifenesin/Codeine Phosphate (Robitussin W/Codeine) 5 ml PO Q4H PRN PRN Reason: Cough and congestion Last Admin: 03/16/19 21:17 Dose: 5 ml Heparin Sodium (Porcine) (Heparin) 5,000 units SC Q8 [facility]; Protocol Last Admin: 03/17/19 05:20 Dose: 5,000 units Hydromorphone HCl (Dilaudid) 0.5 mg IVP Q15M PRN PRN Reason: Pain, Moderate/Severe (4-10) Dextrose (Dextrose 5% In Water 1000 Ml) 1,000 mls @ 0 mls/hr IV .Q0M PRN; Protocol PRN Reason: Hypoglycemia Protocol Insulin Human Regular (Humulin R Low) 0 units SC ACHS [facility]; Protocol Last Admin: 03/16/19 21:57 Dose: Not Given Metformin HCl (Glucophage) 1,000 mg PO BID [facility] Last Admin: 03/16/19 17:25 Dose: 1,000 mg Multivitamins (Thera Tab) 1 tab PO 0800 [facility] Last Admin: 03/16/19 13:13 Dose: 1 tab Oxycodone/Acetaminophen (Percocet 5/325 Mg Tab) 1 tab PO Q4H PRN PRN Reason: Pain, moderate (4-7) Stop: 03/19/19 11:11 Last Admin: 03/16/19 20:05 Dose: 1 tab Oxycodone/Acetaminophen (Percocet 5/325 Mg Tab) 2 tab PO Q4H PRN PRN Reason: Pain, severe (8-10) Stop: 03/19/19 11:11 Last Admin: 03/16/19 22:13 Dose: 2 tab Potassium Chloride (K-Dur 20 Meq Er Tab) 20 meq PO BRK [facility] Last Admin: 03/16/19 08:05 Dose: Not Given Sacubitril/Valsartan (Entresto 24 Mg-26 Mg Tablet) 1 each PO BID [facility] Last Admin: 03/16/19 17:24 Dose: 1 each Spironolactone (Aldactone) 25 mg PO DAILY [facility] Last Admin: 03/16/19 09:53 Dose: Not Given Thiamine HCl (Vitamin B1 Tab) 100 mg PO DAILY [facility] Last Admin: 03/16/19 13:13 Dose: 100 mg - Labs Labs: 03/17/19 06:30 03/17/19 06:30 PT 12.6 SECONDS (9.4-12.5) H 03/10/19 14:00 INR 1.14 03/10/19 14:00 APTT 30.1 Seconds (26.9-38.3) 03/10/19 14:00 - Constitutional Appears: Well, No Acute Distress - Head Exam Head Exam: ATRAUMATIC, NORMOCEPHALIC - Eye Exam Eye Exam: Normal appearance - Extremities Exam Extremities Exam: absent: Calf Tenderness Additional comments: Dressing clean/dry/intact to L foot CFT < 3 seconds Patient able to wiggle toes - Neurological Exam Neurological Exam: Alert, Awake, Oriented x3 - Psychiatric Exam Psychiatric exam: Normal Affect, Normal Mood - Skin Skin Exam: Warm Assessment and Plan - Assessment and Plan (Free Text) Assessment: 53M patient POD#1 left second digit partial amputation secondary to underlying OM. Plan: Patient seen and examined Discussed with Dr. Carmella CHRISTIANSON, absent leukocytosis Patient to weightbear to L heel or in forefoot offloading shoe at all times Dressing to be left clean/dry/intact F/u with Dr. Weir in office on Thursday <Bj Weir - Last Filed: 03/18/19 11:14> Objective - Vital Signs/Intake and Output Vital Signs (last 24 hours): Temp Pulse Resp BP Pulse Ox 98.5 F 80 20 106/71 96 03/17/19 12:00 03/17/19 12:00 03/17/19 12:00 03/17/19 12:00 03/17/19 05:55 - Labs Labs: 03/17/19 06:30 03/17/19 06:30 PT 12.6 SECONDS (9.4-12.5) H 03/10/19 14:00 INR 1.14 03/10/19 14:00 APTT 30.1 Seconds (26.9-38.3) 03/10/19 14:00 Attending/Attestation - Attestation I have personally seen and examined this patient.: Yes I have fully participated in the care of the patient.: Yes I have reviewed all pertinent clinical information, including history, physical exam and plan: Yes
[2019-03-17] MEDS: Multivitamin Therapeutic Tab PO SCH (08:29)
[2019-03-17] MEDS: Insulin Reg-LOW-Coverage SC SCH ×2 (08:29→11:41)
[2019-03-17] MEDS: Potassium Chloride 20 mEq ER Tab PO SCH (08:29)
[2019-03-17] MEDS: SACUBITRIL 24mg/VALSARTAN 26mg tab PO SCH (09:13)
[2019-03-17] MEDS: Oxycodone/Acetaminophen 5/325 mg Tab PO PRN (09:49)
[2019-03-17 12:19] VITALS: BP 106/71; PULSE 80; TEMP 98.5
--- NOTE | 2019-03-17 13:22 | CP.PCM.DIS ---
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 Comment: chf/cp/r/o acs Physician Instructions: Reason For Exam: assess Transition In Care/Readmission Reduction Routine Comment: chf/cp/r/o acs Physician Instructions: Reason For Exam: assess 03/12/19 12:59 Diabetic Education Referral Routine Comment: Physician Instructions: Reason For Exam: Elevated HgbA1C, education for diabetic diet 03/12/19 13:14 Podiatry Consult Routine Comment: Consulting Provider: Tracey Hensley Consulting Physician: Tracey Hensley Reason for Consult: Left 2nd Toe Ulceration Time Spent in preparation of Discharge (in minutes): 45 Hospital Course - Lab Results Lab Results: Micro Results 03/10/19 14:47 Blood-Venous Blood Culture - Final NO GROWTH AFTER 5 DAYS 03/10/19 14:47 Blood-Venous Gram Stain - Final TEST NOT PERFORMED 03/10/19 13:30 Blood-Venous Blood Culture - Final NO GROWTH AFTER 5 DAYS 03/10/19 13:30 Blood-Venous Gram Stain - Final TEST NOT PERFORMED Most Recent Lab Values WBC 9.1 10^3/uL (4.5-11.0) 03/17/19 06:30 RBC 5.32 10^6/uL (3.5-6.1) 03/17/19 06:30 Hgb 15.6 g/dL (14.0-18.0) 03/17/19 06:30 Hct 48.9 % (42.0-52.0) 03/17/19 06:30 MCV 91.9 fl (80.0-105.0) 03/17/19 06:30 MCH 29.3 pg (25.0-35.0) 03/17/19 06:30 MCHC 31.9 g/dl (31.0-37.0) 03/17/19 06:30 RDW 14.1 % (11.5-14.5) 03/17/19 06:30 Plt Count 224 10^3/uL (120.0-450.0) 03/17/19 06:30 MPV 12.2 fl (7.0-11.0) H 03/17/19 06:30 Neut % (Auto) 62.9 % (50.0-68.0) 03/17/19 06:30 Lymph % (Auto) 24.5 % (22.0-35.0) 03/17/19 06:30 [place] % (Auto) 10.3 % (1.0-6.0) H 03/17/19 06:30 Eos % (Auto) 2.1 % (1.5-5.0) 03/17/19 06:30 Baso % (Auto) 0.2 % (0.0-3.0) 03/17/19 06:30 Lymph # (Auto) 2.2 (1.2-3.4) 03/17/19 06:30 [place] # (Auto) 0.9 (0.1-0.6) H 03/17/19 06:30 Eos # (Auto) 0.2 (0.0-0.7) 03/17/19 06:30 Baso # (Auto) 0.02 K/mm3 (0.0-2.0) 03/17/19 06:30 Absolute Neuts (auto) 5.74 (1.4-6.5) 03/17/19 06:30 PT 12.6 SECONDS (9.4-12.5) H 03/10/19 14:00 INR 1.14 03/10/19 14:00 APTT 30.1 Seconds (26.9-38.3) 03/10/19 14:00 pO2 66 mm/Hg (30-55) H 03/10/19 13:30 VBG pH 7.40 (7.32-7.43) 03/10/19 13:30 VBG pCO2 51.0 (40-60) 03/10/19 13:30 VBG HCO3 31.6 mmol/l (21-28) H 03/10/19 13:30 VBG Total CO2 33.2 mmol.L (22-28) H 03/10/19 13:30 VBG O2 Sat (Calc) 94.9 % (40-65) H 03/10/19 13:30 VBG Base Excess 5.5 mmol/L (0.0-2.0) H 03/10/19 13:30 VBG Potassium 4.0 mmol/L (3.6-5.2) 03/10/19 13:30 Sodium 135.0 mmol/L (132-148) 03/10/19 13:30 Chloride 99.0 mmol/L (98-107) 03/10/19 13:30 Glucose 165 mg/dl (75-110) H 03/10/19 13:30 Lactate 1.4 mmol/L (0.7-2.1) 03/10/19 13:30 FiO2 21.0 % 03/10/19 13:30 Sodium 135 mmol/L (132-148) 03/17/19 06:30 Potassium 4.9 mmol/L (3.6-5.0) 03/17/19 06:30 Chloride 98 mmol/L (98-107) 03/17/19 06:30 Carbon Dioxide 29 mmol/L (21-33) 03/17/19 06:30 Anion Gap 13 (10-20) 03/17/19 06:30 BUN 36 mg/dL (7-21) H 03/17/19 06:30 Creatinine 1.0 mg/dl (0.8-1.5) 03/17/19 06:30 Est GFR ( Amer) > 60 03/17/19 06:30 Est GFR (Non-Af Amer) > 60 03/17/19 06:30 POC Glucose (mg/dL) 109 mg/dL (65-110) 03/17/19 11:22 Random Glucose 159 mg/dL (70-110) H 03/17/19 06:30 Hemoglobin A1c 9.5 % (4.2-6.5) H D 03/10/19 14:00 Calcium 9.0 mg/dL (8.4-10.5) 03/17/19 06:30 Phosphorus 4.4 mg/dL (2.5-4.5) 03/15/19 06:15 Magnesium 2.1 mg/dL (1.7-2.2) 03/16/19 06:30 Total Bilirubin 0.9 mg/dL (0.2-1.3) 03/17/19 06:30 AST 48 U/L (17-59) 03/17/19 06:30 ALT 52 U/L (7-56) 03/17/19 06:30 Alkaline Phosphatase 101 U/L (38-126) 03/17/19 06:30 Lactate Dehydrogenase 508 U/L (333-699) 03/10/19 13:30 Total Creatine Kinase 142 U/L (35-230) 03/10/19 13:30 Troponin I 0.04 ng/mL 03/11/19 01:34 NT-Pro-B Natriuret Pep 2430 pg/mL (0-450) H 03/10/19 13:30 Total Protein 7.3 g/dL (5.8-8.3) 03/17/19 06:30 Albumin 3.9 g/dL (3.0-4.8) 03/17/19 06:30 Globulin 3.4 gm/dL 03/17/19 06:30 Albumin/Globulin Ratio 1.2 (1.1-1.8) 03/17/19 06:30 Triglycerides 211 mg/dL (35-160) H 03/10/19 14:00 Cholesterol 139 mg/dL (130-200) 03/10/19 14:00 LDL Cholesterol Direct 103 mg/dL (0-129) 03/10/19 14:00 HDL Cholesterol 23 mg/dL (29-60) L 03/10/19 14:00 Free T4 1.19 ng/dL (0.78-2.19) 03/10/19 14:00 TSH 3rd Generation 3.00 mIU/mL (0.46-4.68) 03/10/19 14:00 Venous Blood Potassium 4.0 mmol/L (3.6-5.2) 03/10/19 13:30 Urine Color Yellow (YELLOW) 03/10/19 17:00 Urine Appearance Clear (CLEAR) 03/10/19 17:00 Urine pH 6.0 (4.7-8.0) 03/10/19 17:00 Ur Specific [facility] 1.010 (1.005-1.035) 03/10/19 17:00 Urine Protein Negative mg/dL (<30 mg/dL) 03/10/19 17:00 Urine Glucose (UA) Negative mg/dL (NEGATIVE) 03/10/19 17:00 Urine Ketones Negative mg/dL (NEGATIVE) 03/10/19 17:00 Urine Blood Negative (NEGATIVE) 03/10/19 17:00 Urine Nitrate Negative (NEGATIVE) 03/10/19 17:00 Urine Bilirubin Negative (NEGATIVE) 03/10/19 17:00 Urine Urobilinogen 0.2 E.U./dL (<1 E.U./dL) 03/10/19 17:00 Ur Leukocyte Esterase Negative Kayden/uL (NEGATIVE) 03/10/19 17:00 Urine Opiates Screen Negative (NEGATIVE) 03/10/19 14:00 Urine Methadone Screen Negative (NEGATIVE) 03/10/19 14:00 Ur Barbiturates Screen Negative (NEGATIVE) 03/10/19 14:00 Ur Phencyclidine Scrn Negative (NEGATIVE) 03/10/19 14:00 Ur Amphetamines Screen Negative (NEGATIVE) 03/10/19 14:00 U Benzodiazepines Scrn Negative (NEGATIVE) 03/10/19 14:00 U Oth Cocaine Metabols Positive (NEGATIVE) H 03/10/19 14:00 U Cannabinoids Screen Negative (NEGATIVE) 03/10/19 14:00 Alcohol, Quantitative < 10 mg/dL (0-10) 03/10/19 14:00 Blood Type O POSITIVE 03/16/19 06:30 Blood Type Confirm O POSITIVE 03/16/19 08:30 Antibody Screen Negative 03/16/19 06:30 BBK History Checked No verified bt 03/16/19 06:30 - Hospital Course Hospital Course: 53 y/o male with PMH of HTN, DM, HLD, CHF (EF 22% in 2016) presented to the ED for SOB x2 weeks. Symptoms started with dry cough, chest tightness, nasal congestion. He failed outpatient z-pack therapy. Patient admitted for CHF exacerbation. EKG: NSR @86, with PVC, QTc 466 on admission. CXR: mild cardiomegaly, no pulm vascular congestion. Trops negative x3. BNP [address] chest on 03/10 was unremarkable. Started on lasix 40 bid, robitussin w/codeine for cough. Patient has Non-ischemic cardiomyopathy likely due to alcohol/drug abuse. Echo showed EF 22% LV function severly impaired, global hypokinesia. Compared to EF 22% in 2016. Patient seen by cardiology. Coreg, spironolactone, entresto, KCl. Patient not candidate for AICD in the setting of drug abuse. 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 X-Ray left foot 03/13: consistent with osteomyelitis. MRI left foot: sequelae of acute osteomyelitis. LE US: normal AZIZA and PVR exam at rest. He underwent left second digit partial amputation with post op local wound care. Patient has DM2, HTN, HLD. Home meds continued with ISS-low with accuchecks for DM. UDS was positive for cocaine. Patient has h/o alcohol use, MVI, folic acid, thiamine given. DVT, GI prophylaxis given during hospital stay. Today, patient is asymptomatic, afebrile, hemodynamically stable and [facility] Additional discharge instructions as below. Discharge Exam - Head Exam Head Exam: ATRAUMATIC, NORMAL INSPECTION, NORMOCEPHALIC - Eye Exam Eye Exam: EOMI, Normal appearance, PERRL Pupil Exam: NORMAL ACCOMODATION, PERRL - ENT Exam ENT Exam: Mucous Membranes Moist, Normal Exam - Neck Exam Neck exam: Normal Inspection - Respiratory Exam Respiratory Exam: Clear to PA & Lateral, NORMAL BREATHING PATTERN, UNREMARKABLE - Cardiovascular Exam Cardiovascular Exam: REGULAR RHYTHM, +S1, +S2. absent: JVD, RRR - GI/Abdominal Exam GI & Abdominal Exam: Normal Bowel Sounds, Soft - Extremities Exam Extremities exam: normal capillary refill, pedal pulses present - Back Exam Back exam: FULL ROM - Neurological Exam Neurological exam: Alert, CN II-XII Intact, Normal Gait, Oriented x3, Reflexes Normal - Psychiatric Exam Psychiatric exam: Normal Affect, Normal Mood - Skin Skin Exam: Dry, Intact, Normal Color, Warm Discharge Plan - Discharge Medications Prescriptions: Aspirin [Aspirin Chewable] 81 mg PO DAILY 30 Days #30 chew Benzonatate [Tessalon Perles] 100 mg PO TID 7 Days #21 sgl Carvedilol [Coreg] 3.125 mg PO BID 30 Days #60 tab Furosemide [Lasix] 40 mg PO DAILY 30 Days #30 tab GlipiZIDE [Glucotrol] 10 mg PO DAILY 30 Days #30 tab MetFORMIN [glucoPHAGE] 1,000 mg PO BID 30 Days #60 tab Potassium Chloride [K-Dur 20 mEq ER Tab] 20 meq PO BRK 14 Days #28 tab Sacubitril/Valsartan [Entresto 24 mg-26 mg Tablet] 1 each PO BID 30 Days #60 tablet Simvastatin [Zocor] 20 mg PO DAILY 30 Days #30 tablet Spironolactone [Aldactone] 25 mg PO DAILY 30 Days #30 tab - Follow Up Plan Condition: FAIR Disposition: HOME/ ROUTINE Instructions: Heart Failure, Adult (DC), Osteomyelitis (DC), Diabetes and Diet Additional Instructions: Resume metformin and glipizide, monitor your sugar and follow with your primary care doctor to recheck the hemoglobin A1C and adjust your diabetes medication Take the entresto and coreg as prescribed Resume the rest of your home medications, including Lasix 40 mg daily and aldactone 25 mg daily. Please follow up with Dr. Friend in 3-5 days or come to the [facility] clinic on the ground floor March 25 @1pm. Please follow up with Dr Weir on Thursday at 8:30 in the wound care. Please return if the symptoms returns or call 911. Referrals: [facility] [place]] Halina Mcleod MD [Primary Care Provider] - Bj Weir DPM [Staff Provider] - Raphael Arciniega MD [Staff Provider] - <Freida Kraft - Last Filed: 03/17/19 17:20> Provider - Provider Date of Admission: 03/11/19 15:54 Attending physician: Freida Kraft MD Primary care physician: Halina Mcleod MD Consults: 03/10/19 15:12 Consult [Physician Consult] Routine Comment: Consulting Provider: Raphael Arciniega Consulting Physician: Raphael Arciniega Reason for Consult: CHF, ALEXANDER and CP 03/10/19 16:12 Social Work Referral Routine Comment: dc plan Physician Instructions: Reason For Exam: assess 03/10/19 16:56 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 Comment: chf/cp/r/o acs Physician Instructions: Reason For Exam: assess Transition In Care/Readmission Reduction Routine Comment: chf/cp/r/o acs Physician Instructions: Reason For Exam: assess 03/12/19 12:59 Diabetic Education Referral Routine Comment: Physician Instructions: Reason For Exam: Elevated HgbA1C, education for diabetic diet 03/12/19 13:14 Podiatry Consult Routine Comment: Consulting Provider: Tracey Hensley Consulting Physician: Tracey Hensley Reason for Consult: Left 2nd Toe Ulceration Hospital Course - Lab Results Lab Results: Micro Results 03/10/19 14:47 Blood-Venous Blood Culture - Final NO GROWTH AFTER 5 DAYS 03/10/19 14:47 Blood-Venous Gram Stain - Final TEST NOT PERFORMED 03/10/19 13:30 Blood-Venous Blood Culture - Final NO GROWTH AFTER 5 DAYS 03/10/19 13:30 Blood-Venous Gram Stain - Final TEST NOT PERFORMED Most Recent Lab Values WBC 9.1 10^3/uL (4.5-11.0) 03/17/19 06:30 RBC 5.32 10^6/uL (3.5-6.1) 03/17/19 06:30 Hgb 15.6 g/dL (14.0-18.0) 03/17/19 06:30 Hct 48.9 % (42.0-52.0) 03/17/19 06:30 MCV 91.9 fl (80.0-105.0) 03/17/19 06:30 MCH 29.3 pg (25.0-35.0) 03/17/19 06:30 MCHC 31.9 g/dl (31.0-37.0) 03/17/19 06:30 RDW 14.1 % (11.5-14.5) 03/17/19 06:30 Plt Count 224 10^3/uL (120.0-450.0) 03/17/19 06:30 MPV 12.2 fl (7.0-11.0) H 03/17/19 06:30 Neut % (Auto) 62.9 % (50.0-68.0) 03/17/19 06:30 Lymph % (Auto) 24.5 % (22.0-35.0) 03/17/19 06:30 [place] % (Auto) 10.3 % (1.0-6.0) H 03/17/19 06:30 Eos % (Auto) 2.1 % (1.5-5.0) 05/30/19 06:30 Baso % (Auto) 0.2 % (0.0-3.0) 03/17/19 06:30 Lymph # (Auto) 2.2 (1.2-3.4) 03/17/19 06:30 [place] # (Auto) 0.9 (0.1-0.6) H 03/17/19 06:30 Eos # (Auto) 0.2 (0.0-0.7) 03/17/19 06:30 Baso # (Auto) 0.02 K/mm3 (0.0-2.0) 03/17/19 06:30 Absolute Neuts (auto) 5.74 (1.4-6.5) 03/17/19 06:30 PT 12.6 SECONDS (9.4-12.5) H 03/10/19 14:00 INR 1.14 03/10/19 14:00 APTT 30.1 Seconds (26.9-38.3) 03/10/19 14:00 pO2 66 mm/Hg (30-55) H 03/10/19 13:30 VBG pH 7.40 (7.32-7.43) 03/10/19 13:30 VBG pCO2 51.0 (40-60) 03/10/19 13:30 VBG HCO3 31.6 mmol/l (21-28) H 03/10/19 13:30 VBG Total CO2 33.2 mmol.L (22-28) H 03/10/19 13:30 VBG O2 Sat (Calc) 94.9 % (40-65) H 03/10/19 13:30 VBG Base Excess 5.5 mmol/L (0.0-2.0) H 03/10/19 13:30 VBG Potassium 4.0 mmol/L (3.6-5.2) 03/10/19 13:30 Sodium 135.0 mmol/L (132-148) 03/10/19 13:30 Chloride 99.0 mmol/L (98-107) 03/10/19 13:30 Glucose 165 mg/dl (75-110) H 03/10/19 13:30 Lactate 1.4 mmol/L (0.7-2.1) 03/10/19 13:30 FiO2 21.0 % 03/10/19 13:30 Sodium 135 mmol/L (132-148) 03/17/19 06:30 Potassium 4.9 mmol/L (3.6-5.0) 03/17/19 06:30 Chloride 98 mmol/L (98-107) 03/17/19 06:30 Carbon Dioxide 29 mmol/L (21-33) 03/17/19 06:30 Anion Gap 13 (10-20) 03/17/19 06:30 BUN 36 mg/dL (7-21) H 03/17/19 06:30 Creatinine 1.0 mg/dl (0.8-1.5) 03/17/19 06:30 Est GFR ( Amer) > 60 03/17/19 06:30 Est GFR (Non-Af Amer) > 60 03/17/19 06:30 POC Glucose (mg/dL) 109 mg/dL (65-110) 03/17/19 11:22 Random Glucose 159 mg/dL (70-110) H 03/17/19 06:30 Hemoglobin A1c 9.5 % (4.2-6.5) H D 03/10/19 14:00 Calcium 9.0 mg/dL (8.4-10.5) 03/17/19 06:30 Phosphorus 4.4 mg/dL (2.5-4.5) 03/15/19 06:15 Magnesium 2.1 mg/dL (1.7-2.2) 03/16/19 06:30 Total Bilirubin 0.9 mg/dL (0.2-1.3) 03/17/19 06:30 AST 48 U/L (17-59) 03/17/19 06:30 ALT 52 U/L (7-56) 03/17/19 06:30 Alkaline Phosphatase 101 U/L (38-126) 03/17/19 06:30 Lactate Dehydrogenase 508 U/L (333-699) 03/10/19 13:30 Total Creatine Kinase 142 U/L (35-230) 03/10/19 13:30 Troponin I 0.04 ng/mL 03/11/19 01:34 NT-Pro-B Natriuret Pep 2430 pg/mL (0-450) H 03/10/19 13:30 Total Protein 7.3 g/dL (5.8-8.3) 03/17/19 06:30 Albumin 3.9 g/dL (3.0-4.8) 03/17/19 06:30 Globulin 3.4 gm/dL 03/17/19 06:30 Albumin/Globulin Ratio 1.2 (1.1-1.8) 03/17/19 06:30 Triglycerides 211 mg/dL (35-160) H 03/10/19 14:00 Cholesterol 139 mg/dL (130-200) 03/10/19 14:00 LDL Cholesterol Direct 103 mg/dL (0-129) 03/10/19 14:00 HDL Cholesterol 23 mg/dL (29-60) L 03/10/19 14:00 Free T4 1.19 ng/dL (0.78-2.19) 03/10/19 14:00 TSH 3rd Generation 3.00 mIU/mL (0.46-4.68) 03/10/19 14:00 Venous Blood Potassium 4.0 mmol/L (3.6-5.2) 03/10/19 13:30 Urine Color Yellow (YELLOW) 03/10/19 17:00 Urine Appearance Clear (CLEAR) 03/10/19 17:00 Urine pH 6.0 (4.7-8.0) 03/10/19 17:00 Ur Specific [facility] 1.010 (1.005-1.035) 03/10/19 17:00 Urine Protein Negative mg/dL (<30 mg/dL) 03/10/19 17:00 Urine Glucose (UA) Negative mg/dL (NEGATIVE) 03/10/19 17:00 Urine Ketones Negative mg/dL (NEGATIVE) 03/10/19 17:00 Urine Blood Negative (NEGATIVE) 03/10/19 17:00 Urine Nitrate Negative (NEGATIVE) 03/10/19 17:00 Urine Bilirubin Negative (NEGATIVE) 03/10/19 17:00 Urine Urobilinogen 0.2 E.U./dL (<1 E.U./dL) 03/10/19 17:00 Ur Leukocyte Esterase Negative Kayden/uL (NEGATIVE) 03/10/19 17:00 Urine Opiates Screen Negative (NEGATIVE) 03/10/19 14:00 Urine Methadone Screen Negative (NEGATIVE) 03/10/19 14:00 Ur Barbiturates Screen Negative (NEGATIVE) 03/10/19 14:00 Ur Phencyclidine Scrn Negative (NEGATIVE) 03/10/19 14:00 Ur Amphetamines Screen Negative (NEGATIVE) 03/10/19 14:00 U Benzodiazepines Scrn Negative (NEGATIVE) 03/10/19 14:00 U Oth Cocaine Metabols Positive (NEGATIVE) H 03/10/19 14:00 U Cannabinoids Screen Negative (NEGATIVE) 03/10/19 14:00 Alcohol, Quantitative < 10 mg/dL (0-10) 03/10/19 14:00 Blood Type O POSITIVE 03/16/19 06:30 Blood Type Confirm O POSITIVE 03/16/19 08:30 Antibody Screen Negative 03/16/19 06:30 BBK History Checked No verified bt 03/16/19 06:30 Attending/Attestation - Attestation I have personally seen and examined this patient.: Yes I have fully participated in the care of the patient.: Yes I have reviewed all pertinent clinical information, including history, physical exam and plan: Yes Notes (Text): Attending note; Patient seen and examined with resident. Patient is alert and awake. Status post left second toe ambulation yesterday. Dressing change with podiatry. No bleeding noted. Has some minimal cough. Patient is a 53 year old male with past medical history significant for hypertension, noninsulin dependent DM2, hyperlipidemia, and chronic systolic CHF (last EF in 2016 was 22%) that presented to the emergency room with progressively worse shortness of breath over the past 2 weeks. 1. Shortness of breath/ acute on chronic systolic CHF exacerbation. 2D echo in 2016 showed EF of 22%. Now EF of approximately 19% left ventricle mildly elevated, systolic function is severely impaired, global hypokinesis of left ventrile, right ventricle is mildly dilated and severely hypokinetic, moderate tricuspid regurgitation. on Entresto. 2. DM2. HgbA1C 9.5. dietary education given. Dietitian evaluation appreciated. Started on glipizide and metformin. Fingerstick is improving. continue to monitor accuchecks. Diet and exercise discussed with patient. 3. Left second toe osteomyelitis ; status post left second toe amputation. Patient will follow-up with Dr. Weir next Thursday on wound care center. Appointment made. 4. Hypertension. Continue Lasix. Entresto. 5. Hyperlipidemia. Continue lipitor. 6. Alcohol abuse; complete alcohol cessation is strongly advised. on thiamine, folic acid, and multivitamin. cessation. 7. Cocaine use. UDS positive for cocaine. Complete drug abuse cessation is strongly advised. Medication delivered to the bedside. Case discussed with pharmacist in detail. Patient will follow-up with [facility] upon discharge if needed. 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 Advised to follow-up with frontload driver. pillar worker evaluation appreciated. Information about Medicaid and community relations assistant program given. Upon discharge the patient will follow up with PMD or [facility] clinic.
--- NOTE | 2019-03-17 15:18 | RAD ---
Date of service: 03/17/2019 HISTORY: CHF COMPARISON: Comparison made with chest radiograph 03/10/2019 TECHNIQUE: 1 view obtained. FINDINGS: There is minimal patient rotation to the left LUNGS: No active disease PLEURA: No significant pleural effusion identified, no pneumothorax apparent. CARDIOVASCULAR: Cardiomegaly. Minimal aortic atherosclerotic calcification present. No pulmonary vascular congestion. OSSEOUS STRUCTURES: No significant abnormalities. VISUALIZED UPPER ABDOMEN: Normal. OTHER FINDINGS: None. IMPRESSION: No active disease
--- NOTE | 2019-03-17 15:36 | PN ---
DATE: 03/17/2019 SUBJECTIVE: The patient underwent amputation of the distal second toe. He is complaining of shortness of breath at this time. He denies retrosternal chest pain. PHYSICAL EXAMINATION: VITAL SIGNS: Blood pressure 108/72, heart rate 76, temperature 97.8, and respirations 20. HEENT: Normocephalic. CHEST: Bilateral rhonchi and there is diminished breath sounds over the bases. HEART: S1 and S2. Regular. EXTREMITIES: 1+ pitting edema. LABORATORY DATA: Today's hemoglobin, hematocrit, white count, and platelet count are within normal limit. Today's SMA-7 is within normal limit except for glucose of 159 and BUN of 36. ASSESSMENT: 1. Status post amputation of the distal left second toe. 2. Nonischemic cardiomyopathy. 3. Cocaine abuse. 4. Alcohol abuse. RECOMMENDATIONS: Continue Aldactone 25 mg daily, Coreg 12.5 mg twice a day, aspirin 81 mg once a day, Lasix 40 mg intravenously twice a day, K-Dur 20 mEq daily, and thiamine 100 mg once a day. Obtain report of the chest x-ray today. Raphael Arciniega MD
== END 2019-03-17 14:13 | disposition home or self-care (01) | DRG 180 ==
LOC: ED 12:58 → ERH 14:42 → 2RNO 15:40 → OBSVTOIN 03-11 15:54
PROVIDERS: ADMIT Hospitalist; ATTEND Internal Medicine
PROC: 0Y6S0Z3 Detachment at Left 2nd Toe, Low, Open Approach (ICD-10-PCS; principal; 2019-03-16 10:00)
DX: I11.0 Hypertensive heart disease with heart failure (principal); M86.172 Other acute osteomyelitis, left ankle and foot; E11.621 Type 2 diabetes mellitus with foot ulcer; L97.529 Non-pressure chronic ulcer of other part of left foot with unspecified severity; I42.9 Cardiomyopathy, unspecified; E83.42 Hypomagnesemia; I07.1 Rheumatic tricuspid insufficiency; I50.23 Acute on chronic systolic (congestive) heart failure; E11.69 Type 2 diabetes mellitus with other specified complication; E78.5 Hyperlipidemia, unspecified; F10.10 Alcohol abuse, uncomplicated; F14.10 Cocaine abuse, uncomplicated; Z79.4 Long term (current) use of insulin; J06.9 Acute upper respiratory infection, unspecified; I45.81 Long QT syndrome